=== PATIENT | female | born 1930 | race Caucasian/White ===

== ENCOUNTER 2017-02-23 10:05 | Emergency (ER) | payer BC ==
[~2017-02-23] VITALS: Ht 152.4 cm; Wt 68.0 kg
[2017-02-23 10:05] VITALS: BP_SYST 144
[~2017-02-23 10:05] MED LIST: ESZO2TAB22 PO; LEVO88TA2 PO; LORA-259 PO; METO50TA7 PO; MIRT30TA7 PO; TRAZ-123 PO; VALS1TAB37 PO; VALS80TA2 PO
--- NOTE | 2017-02-23 10:05 | NUR ---
BROUGHT IN BY [facility], PLACED IN BED #1 AND TRIAGED. REPORT GIVEN TO MELANIA
--- NOTE | 2017-02-23 10:10 | NUR ---
ER at bedside examining patient.
--- NOTE | 2017-02-23 10:12 | NUR ---
Pt presents to ER c/o general weakness, dizziness since last night. Pt states that she had mechanical fall last night at home and hit her back and her chest. Pt states that she is experiencing 5/10 pain in chest and back which she described as tolerable level of pain. Pt denies loss of consciousness or lacerations or trauma sustained from fall. Pt reports history of HTN and thyroid disorder. Pt in no acute distress, AOX4, allergies noted.
[2017-02-23 10:39] LABS: BASOPHILS % (AUTO) 0.7 % (0.0-2.0); EOSINOPHILS # (AUTO) 0.2 K/uL (0.0-0.4); LYMPHOCYTES # (AUTO) 1.5 K/uL (1.0-5.5); MONOCYTES # (AUTO) 0.2 K/uL (0.0-1.0)
[2017-02-23] MEDS: MECLIZINE HCL 25 MG TABLET (ANITVERT) PO ONE (10:39)
--- NOTE | 2017-02-23 10:47 | NUR ---
# 20 gauge angiocath placed to LAC. Use of asceptic technique. Opsite placed over site. Blood return noted. Flushed with 10 cc of normal saline. No evidence of infiltration noted. Patient tolerated well.
[2017-02-23 10:48] LABS: EOSINOPHILS % (AUTO) 2.7 % (0.0-4.0); HEMATOCRIT 28.3 % (36-48); HEMOGLOBIN 9.5 g/dL (12.0-16.0); LYMPHOCYTES % (AUTO) 25.9 % (20.5-51.5); MEAN CORPUSCULAR HEMOGLOBIN 33 pg (27-31); MEAN CORPUSCULAR HGB CONC 34 % (32-36); MEAN CORPUSCULAR VOLUME 98 fL (79.0-98.0); MONOCYTES % (AUTO) 3.8 % (1.7-9.3); NEUTROPHILS # (AUTO) 3.9 K/uL (1.8-7.7); NEUTROPHILS % (AUTO) 66.9 % (40.0-70.0); PLATELET COUNT (AUTO) 190 K/uL (130-430); RED CELL DISTRIBUTION WIDTH 11.7 % (9.0-15.0); WHITE BLOOD COUNT (AUTO) 5.8 K/uL (4.8-10.8)
[2017-02-23 10:55] LABS: ANION GAP 7 (5-15); CALCIUM 9.2 mg/dL (8.4-11.0); CHLORIDE 103 mmol/L (98-107); CREATININE 1.48 mg/dL (0.55-1.30); GLUCOSE 112 mg/dL (70-99); POTASSIUM 3.4 mmol/L (3.5-5.1); SODIUM SERUM 138 mmol/L (136-145); UREA NITROGEN, BLOOD 22 mg/dL (8-21)
[2017-02-23 11:02] LABS: ALANINE AMINOTRANSFERASE 15 U/L (12-78); ALBUMIN 3.5 g/dL (3.4-4.8); ASPARTATE AMINOTRANSFERASE 14 U/L (10-37); TOTAL BILIRUBIN 0.3 mg/dL (0.0-1.0)
[2017-02-23] MEDS: METOCLOPRAMIDE HCL 10 MG/2 ML VIAL IVP ONE (11:04)
[2017-02-23 11:05] LABS: PROTHROMBIN TIME 10.4 SECS (9.5-12.5)
--- NOTE | 2017-02-23 11:45 | NUR ---
rcv report from LOIS Ram; pt resting comfortably in bed; nausea and dizziness resolved; reports 5/10 pain; tolerable and does not wish for interventions at this time; VSS BP 140/57 P71; O2 Sat 99%RA; will continue to monitor
--- NOTE | 2017-02-23 11:55 | NUR ---
pt off unit via gurney to Radiology; in stable condition
--- NOTE | 2017-02-23 12:20 | NUR ---
pt return to unit via gurney from Radiology; in stable condition; will continue to monitor
--- NOTE | 2017-02-23 12:25 | NUR ---
endorsed care to LOIS Ram; pt resting comfortably in bed with no complaints or other symptoms; in stable condition
--- NOTE | 2017-02-23 12:26 | NUR ---
Pt's daughter Anastasiia called and would like to updated on pt's plan of care. She can be reached at [phone] .
--- NOTE | 2017-02-23 13:25 | NUR ---
Contacted adoption social worker Chika to get a hold of pt's daughter Anastasiia. Pt's daughter expressed caregiver role strain and is exhausted about having to constantly check up on mother who lives alone while also caring for her own family. Pt also expressed willingness to speak with adoption social worker.
--- NOTE | 2017-02-23 14:25 | NUR ---
Social Service Note: [employer] OFFICER spoke with pt's daughter, Anastasiia ([phone]); pt lives home alone. Pt's dtr states that the pt needs help at home. Pt's dtr states that she tries to help her out but is overwhelmed with her home life. [employer] OFFICER offered to give pt home care agency information where pt could hire an supervisor fishing to assist with daily activities. [employer]OBATION [employer] PAROLE OFFICER met with pt at bedside; pt states that she lives home alone; pt states that she does not drive. Pt stats that her daughter helps her out with activities of daily living. [employer]OB[employer] OFFICER spoke with pt about private home caregivers. Pt states that she may be interested in hiring an supervisor fishing. PROBATION AND PAROLE OFFICER provided pt with listing of local home care agencies. [employer]OBATION [employer] OFFICER will remain available for support and will follow up as needed.
[2017-02-23] MEDS: ASPIRIN 81 MG TABLET(ECOTRIN) PO ONE (14:55)
--- NOTE | 2017-02-23 14:56 | NUR ---
Pt medicated and tolerated well; will continue to monitor.
--- NOTE | 2017-02-23 15:07 | NUR ---
Attempted to contact pt's daughter Anastasiia. Pt is ready for discharge but daughter is her only ride home. Message left on daughter's voicemail to call us back.
--- NOTE | 2017-02-23 15:59 | NUR ---
Attempted to contact pt's daughter once again. No answer.
--- NOTE | 2017-02-23 16:00 | NUR ---
Pt's daughter called back. She is on her way from work to [facility] to take pt home.
--- NOTE | 2017-02-23 16:30 | NUR ---
Patient given written and verbal discharge instructions and verbalizes understanding. ER MD discussed with patient the results and treatment provided. Patient in stable condition. ID arm band removed. IV catheter removed intact and dressing applied, no active bleeding. Rx of Meclizine & Aspirin given. Patient educated on pain management and to follow up with PMD. Pain Scale 0/10. Opportunity for questions provided and answered.
[2017-02-23 16:36] VITALS: BP_SYST 133
== END 2017-02-23 16:36 | disposition home or self-care (01) ==
LOC: SED 10:05
DX: R42 Dizziness and giddiness (principal); R53.1 Weakness; I10 Essential (primary) hypertension; Z88.5 Allergy status to narcotic agent; Z88.0 Allergy status to penicillin; Z79.899 Other long term (current) drug therapy
CPT/HCPCS: 36415; 70450; 71045; 72128; 80053; 82550; 83880; 84484; 85025; 85610; 85730; 93005; 96374; 99285; J2765; J8597

== ENCOUNTER 2018-04-29 08:57 | Emergency (ER) | payer BC ==
[~2018-04-29] VITALS: Ht 167.6 cm; Wt 59.9 kg
[~2018-04-29 08:57] MED LIST changes: -TRAZ-123 PO; +TRAZ-218 PO
[2018-04-29 09:00] VITALS: BP_SYST 172
--- NOTE | 2018-04-29 09:00 | NUR ---
Arrived via [facility] ambulance with general weakness for the last 2 days after non mechanical fall 2 days ago with occipital strike without KO. Placed in room 3. Placed on equipment monitor phototypesetting, blood pressure machine and pulse oximeter. To gown for exam. Side rails up. Report given to Gary ABREU.
--- NOTE | 2018-04-29 09:04 | NUR ---
Pt C/O generalized weakness x 2 days and pain to the back of her head. Pt sustained non mechanical fall striking the back of her head. Pt denies any KO, N/V/D, chest pain, SOB, or any other symptoms at this time. Will continue to monitor.
[2018-04-29] MEDS ORDERED: NACL 0.9% 1,000 ML IV ONE (09:05)
--- NOTE | 2018-04-29 09:10 | NUR ---
# 22 gauge angiocath placed to RT AC. Use of asceptic technique. Opsite placed over site. Blood return noted. Blood for lab drawn from site. Flushed with 10 cc of normal saline. No evidence of infiltration noted. Patient tolerated well.
--- NOTE | 2018-04-29 09:11 | NUR ---
Radiology at bedside for xray
--- NOTE | 2018-04-29 09:25 | NUR ---
Patient transported to radiology via gurney, accompanied by rad staff.
--- NOTE | 2018-04-29 09:33 | NUR ---
Pt returned from radiology in stable condition, will continue to monitor.
[2018-04-29 09:43] LABS: ANION GAP 9 (5-15); CALCIUM 8.8 mg/dL (8.4-11.0); CHLORIDE 106 mmol/L (98-107); GLUCOSE 94 mg/dL (70-99); POTASSIUM 3.9 mmol/L (3.5-5.1); SODIUM SERUM 141 mmol/L (136-145); UREA NITROGEN, BLOOD 23 mg/dL (8-21)
[2018-04-29 09:46] LABS: PROTHROMBIN TIME 9.8 SECS (9.5-12.5)
[2018-04-29 09:49] LABS: ALANINE AMINOTRANSFERASE 17 U/L (12-78); ALBUMIN 3.6 g/dL (3.4-4.8); ASPARTATE AMINOTRANSFERASE 10 U/L (10-37); LIPASE 314 U/L (73-393); TOTAL BILIRUBIN 0.2 mg/dL (0.0-1.0)
[2018-04-29 09:55] LABS: HEMATOCRIT 29.5 % (36-48); MEAN CORPUSCULAR VOLUME 97 fL (79.0-98.0); RED BLOOD CELL COUNT(AUTO) 3.04 MIL/uL (4.2-6.2); WHITE BLOOD COUNT (AUTO) 4.6 K/uL (4.8-10.8)
[2018-04-29 09:56] LABS: BASOPHILS # (AUTO) 0.1 K/uL (0.0-0.2); BASOPHILS % (AUTO) 1.1 % (0.0-2.0); EOSINOPHILS # (AUTO) 0.3 K/uL (0.0-0.4); EOSINOPHILS % (AUTO) 7.5 % (0.0-4.0); LYMPHOCYTES # (AUTO) 1.5 K/uL (1.0-5.5); LYMPHOCYTES % (AUTO) 33.1 % (20.5-51.5); MEAN CORPUSCULAR HEMOGLOBIN 33 pg (27-31); MEAN CORPUSCULAR HGB CONC 34 % (32-36); MONOCYTES # (AUTO) 0.2 K/uL (0.0-1.0); MONOCYTES % (AUTO) 4.2 % (1.7-9.3); NEUTROPHILS # (AUTO) 2.5 K/uL (1.8-7.7); NEUTROPHILS % (AUTO) 54.1 % (40.0-70.0); PLATELET COUNT (AUTO) 179 K/uL (130-430); RED CELL DISTRIBUTION WIDTH 13.3 % (9.0-15.0)
[2018-04-29 10:14] LABS: BILIRUBIN,URINE NEGATIVE (NEGATIVE); BLOOD, URINE NEGATIVE (NEGATIVE); CLARITY/URINE CLEAR (CLEAR); COLOR,URINE YELLOW (YELLOW); GLUCOSE,URINE NEGATIVE (NEGATIVE); KETONES,URINE NEGATIVE (NEGATIVE); LEUKOCYTE ESTERASE ,URINE NEGATIVE (NEGATIVE); NITRITE, URINE NEGATIVE (NEGATIVE); PH,URINE 5.5 (5.0-8.0); PROTEIN URINE TRACE (NEGATIVE); UROBILINOGEN,URINE 0.2 (0.2-1.0)
--- NOTE | 2018-04-29 11:40 | NUR ---
assumed care, patient resting in bed.
--- NOTE | 2018-04-29 12:05 | NUR ---
Patient given written and verbal discharge instructions and verbalizes understanding. ER MD discussed with patient the results and treatment provided. Patient in stable condition. ID arm band removed. IV catheter removed intact and dressing applied, no active bleeding. Rx of Naproxen given. Patient educated on pain management and to follow up with PMD. Pain Scale 0/10. Opportunity for questions provided and answered. Medication side effect fact sheet provided.
[2018-04-29 12:09] VITALS: BP_SYST 157
== END 2018-04-29 12:09 | disposition home or self-care (01) ==
LOC: SED 08:57
DX: S09.90XA Unspecified injury of head, initial encounter (principal); R53.1 Weakness; I10 Essential (primary) hypertension; Z88.0 Allergy status to penicillin; Z88.5 Allergy status to narcotic agent; Z88.6 Allergy status to analgesic agent; Z79.899 Other long term (current) drug therapy; W19.XXXA Unspecified fall, initial encounter; Y93.89 Activity, other specified; Y92.89 Other specified places as the place of occurrence of the external cause; Y99.8 Other external cause status
CPT/HCPCS: 36415; 70450; 71045; 80053; 81003; 82550; 83605; 83690; 84484; 85025; 85610; 85730; 87040; 99284; J7030; 93005

== ENCOUNTER 2018-04-30 14:12 | Emergency (ER) | payer BC ==
[~2018-04-30] VITALS: Ht 152.4 cm; Wt 54.4 kg
[2018-04-30 14:20] VITALS: BP_SYST 160
--- NOTE | 2018-04-30 14:20 | NUR ---
Arrived via BLS ambulance S/P mechanical fall wtih right FA skin tear. Patient to ER bed 6 to gown for evaluation. Side rails up. Report given to Jyotsna ABREU.
--- NOTE | 2018-04-30 14:35 | NUR ---
Patient presented to ER via BLS ambulance S/P mechanical fall wtih right FA skin tear. Patient A&Ox3, ambulatory, afebrile, skin pink, respirations equal bilat. Patient states she fell in the shed at her daughters home, she was cleaning, Patient states no KO, she needed help getting up off the floor. 3 cm skin tear to right forearm, pain to right hip and lower back from fall pain 08/15.
--- NOTE | 2018-04-30 15:30 | NUR ---
ER at bedside examining patient.
--- NOTE | 2018-04-30 16:30 | NUR ---
Patient awake and expressing concern for needing to go home. I verbalized to pt that she is in ER for a fall, re-oriented to place and time. Patient cooperative and responded appropriately.
--- NOTE | 2018-04-30 18:00 | NUR ---
Kimani ABREUcharge entry clerk nurse called family of Pt, requested pt to be picked up do to discharge. I notified patient that family is on the way, patient responded appriately.
--- NOTE | 2018-04-30 18:15 | NUR ---
Site to Right forearm cleansed with sterile water. Site measures approximately 3 cm . nonaderent dressing applied, wrapped with kerlex. Tetanus vaccination current.
[2018-04-30] MEDS ORDERED: DIPH-TET-PERTUS Vaccine 0.5 ML VIAL (ADACEL) I.M. ONE (18:45)
--- NOTE | 2018-04-30 19:00 | NUR ---
After discussion with family patient wishes to be discharged home.
--- NOTE | 2018-04-30 19:22 | NUR ---
Patient given written and verbal discharge instructions and verbalizes understanding. ER MD discussed with patient the results and treatment provided. Patient in stable condition. ID arm band removed. Patient educated on pain management and to follow up with PMD. Pain Scale 0/10. Opportunity for questions provided and answered. Medication side effect fact sheet provided.
[2018-04-30 19:23] VITALS: BP_SYST 162
== END 2018-04-30 19:23 | disposition home or self-care (01) ==
LOC: SED 14:12
DX: S70.01XA Contusion of right hip, initial encounter (principal); S50.811A Abrasion of right forearm, initial encounter; I10 Essential (primary) hypertension; Z90.49 Acquired absence of other specified parts of digestive tract; Z90.710 Acquired absence of both cervix and uterus; Z88.0 Allergy status to penicillin; Z88.5 Allergy status to narcotic agent; Z88.6 Allergy status to analgesic agent; Z79.899 Other long term (current) drug therapy; W19.XXXA Unspecified fall, initial encounter; Y93.01 Activity, walking, marching and hiking; Y92.89 Other specified places as the place of occurrence of the external cause; Y99.8 Other external cause status
CPT/HCPCS: 72170-TC; 99283

== ENCOUNTER 2018-12-07 07:51 | Inpatient (IN) | payer BC ==
[2018-12-07] VITALS (17 sets, daily range): BP systolic 115–201
[~2018-12-07] VITALS: Ht 154.9 cm; Wt 59.0 kg
[~2018-12-07 07:51] MED LIST changes: -TRAZ-218 PO; +TRAZ-250 PO
--- NOTE | 2018-12-07 07:51 | NUR ---
Patient to ER bed 2 to gown for evaluation. Side rails up. Report given to Alicia ABREU.
--- NOTE | 2018-12-07 08:00 | NUR ---
ER at bedside examining patient.
--- NOTE | 2018-12-07 08:11 | NUR ---
Pt bib CF 64 c/o resp distress. Pt 94% on arrival. VSS. Pt h/o hypothyroid and psych. Pt is poor historian. RT at bedside.
[2018-12-07] MEDS ORDERED: NS 250 ML IV ONE (08:15)
--- NOTE | 2018-12-07 08:35 | NUR ---
# 20 gauge angiocath placed to LAC. Use of asceptic technique. Opsite placed over site. Blood return noted. Blood for lab drawn from site. Flushed with 10 cc of normal saline. No evidence of infiltration noted. Patient tolerated well.
[2018-12-07] MEDS ORDERED: SUCCINYLCHOLINE CHLORIDE 20 MG/ML(QUELICIN) IVP ONE (08:44)
[2018-12-07] MEDS ORDERED: ETOMIDATE 20 MG/ 10 ML VIAL (AMIDATE) IVP ONE (08:44)
--- NOTE | 2018-12-07 08:45 | NUR ---
NS bolus currently infusing. Lung sounds are clear
--- NOTE | 2018-12-07 08:48 | NUR ---
x-ray at the bedside.
[2018-12-07 08:53] LABS: ANION GAP 7 (5-15); CALCIUM 8.5 mg/dL (8.4-11.0); CHLORIDE 103 mmol/L (98-107); CREATININE 1.43 mg/dL (0.55-1.30); GLUCOSE 130 mg/dL (70-99); POTASSIUM 3.7 mmol/L (3.5-5.1); SODIUM SERUM 134 mmol/L (136-145); UREA NITROGEN, BLOOD 16 mg/dL (8-21)
[2018-12-07 08:58] LABS: INR 1.3 (0.8-1.2); PROTHROMBIN TIME 12.5 SECS (9.5-12.5)
[2018-12-07 09:00] LABS: ALANINE AMINOTRANSFERASE 12 U/L (12-78); ALBUMIN 2.9 g/dL (3.4-4.8); ASPARTATE AMINOTRANSFERASE 9 U/L (10-37); TOTAL BILIRUBIN 0.4 mg/dL (0.0-1.0)
[2018-12-07] MEDS ORDERED: LEVOFLOXACIN 500 MG/D5W 100 ML IV ONE (09:00)
[2018-12-07] MEDS ORDERED: CLOPIDOGREL BISULFATE 75 MG TABLET PO ONE (09:15)
[2018-12-07 09:40] LABS: MEAN CORPUSCULAR HEMOGLOBIN 37 pg (27-31); MEAN CORPUSCULAR HGB CONC 34 % (32-36); MEAN CORPUSCULAR VOLUME 108 fL (79.0-98.0); RED CELL DISTRIBUTION WIDTH 16.9 % (9.0-15.0)
[2018-12-07 09:45] LABS: HEMOGLOBIN 4.2 g/dL (12.0-16.0); RED BLOOD CELL COUNT(AUTO) 1.12 MIL/uL (4.2-6.2); WHITE BLOOD COUNT (AUTO) 1.7 K/uL (4.8-10.8)
[2018-12-07] MEDS ORDERED: NACL 0.9% 1,000 ML IV ONE (09:45)
[2018-12-07 09:46] LABS: HEMATOCRIT 12.3 % (36-48); PLATELET COUNT (AUTO) 44 K/uL (130-430)
--- NOTE | 2018-12-07 09:48 | NUR ---
pt become agitated and is trying to pull IV and monitor off. O2 increased to 3L. RT at the bedside giving a breathing tx.
[2018-12-07] MEDS ORDERED: IPRATROPIUM/ALBUTEROL SULFATE 3 ML AMPUL.NEB (DUONEB) ONE (09:59)
[2018-12-07 10:23] LABS: BAND % (MANUAL) 2 % (0-6); BASOPHILS % (MANUAL) 0 % (0-2); EOSINOPHILS % (MANUAL) 0 % (0-7); LYMPHOCYTES % (MANUAL) 40 % (20-46); MONOCYTES % (MANUAL) 10 % (0-11)
--- NOTE | 2018-12-07 10:32 | NUR ---
Infusing NS 1L. Lung sounds are clear.
[2018-12-07] MEDS ORDERED: KCL 20 mEq in D5/0.45NS 1000mL 1,000 ML IV ONE (10:45)
--- NOTE | 2018-12-07 10:49 | NUR ---
Levaquin IVPB currently infusing per MD order.
--- NOTE | 2018-12-07 11:25 | NUR ---
Pt will be admitted to the ICU under the care of Dr. Verma. Admit orders have been received.
--- NOTE | 2018-12-07 11:45 | NUR ---
Pt pulled out both IV sites. 20g IV placced to the left AC.
--- NOTE | 2018-12-07 11:45 | NUR ---
ADMISSION NOTE Received patient from ER via gurney. Patient admitted with diagnosis of pancytopenia and pneumonia. Patient is awake, alert, oriented 3. Patient oriented to hospital room, call light, toileting, pain management and safety-teach back done. Personal belongings checked and Belongings List documented. Call light within reach.
--- NOTE | 2018-12-07 11:55 | NUR ---
Transfer to ICU bed 2 via ACLS protocol. Licensed nurse present. IV present no signs or symptoms of infiltration. Report given to Alec ABREU. Pt left in stable condition
[2018-12-07 12:29] LABS: BLASTS, MANUAL % 18 % (0-0)
--- NOTE | 2018-12-07 12:30 | NUR ---
IV PLACEMENT: # 20 gauge angiocath placed to right AC. Use of asceptic technique. Opsite placed over site. Blood return noted. Flushed with 10 cc of normal saline. No evidence of infiltration noted. Patient tolerated without complication or complaint.
[2018-12-07 12:31] LABS: OTHER CELLS,MANUAL % 23 (0-0)
[2018-12-07] MEDS: hydrALAZINE HCL 20 MG/ML VIAL IVP PRN (13:05)
--- NOTE | 2018-12-07 13:40 | NUR ---
New consult paged to Dr. Case, Dr. Toure covering. Spoke with exchange.
[2018-12-07] MEDS ORDERED: LABETALOL 100 MG/ 20ML VIAL IVP PRN (14:00)
[2018-12-07] MEDS ORDERED: LABETALOL 100 MG/ 20ML VIAL IVP ONE (14:00)
[2018-12-07] MEDS ORDERED: METOPROLOL SUCCINATE 50 MG TAB.SR.24H (TOPROL XL) PO ONE (14:15)
[2018-12-07] MEDS ORDERED: LOSARTAN POTASSIUM 50 MG TABLET (COZAAR) PO ONE (14:15)
--- NOTE | 2018-12-07 14:15 | NUR ---
THRASHER CATH: # 16 FR Thrasher catheter with 10 cc bulb inserted with use of sterile technique. Bulb inflated with 10 cc sterile water. Immediate return of 200 cc yellow urine noted. Bedside drainage bag placed below level of bladder. Pt tolerated procedure well.
--- NOTE | 2018-12-07 14:18 | NUR ---
New consult paged to Dr. Meyers, spoke with exchange.
[2018-12-07] MEDS ORDERED: ALLOPURINOL 300 MG TABLET (ZYLOPRIM) PO ONE (15:15)
[2018-12-07] MEDS: MEROPENEM 500 MG in NS 50 ML IV SCH ×2 (15:42→21:29)
[2018-12-07] MEDS: VANCOMYCIN HCL 750 MG in NS 250 ML IV SCH (17:30)
--- NOTE | 2018-12-07 17:48 | NUR ---
New consult paged to Dr. Billings, spoke with exchange.
[2018-12-07 19:28] LABS: PLATELET COUNT (AUTO) 67 K/uL (130-430)
[2018-12-07 19:35] LABS: HEMATOCRIT 26.2 % (36-48); HEMOGLOBIN 8.7 g/dL (12.0-16.0); MEAN CORPUSCULAR HEMOGLOBIN 34 pg (27-31); MEAN CORPUSCULAR HGB CONC 33 % (32-36); RED BLOOD CELL COUNT(AUTO) 2.58 MIL/uL (4.2-6.2); RED CELL DISTRIBUTION WIDTH 19.8 % (9.0-15.0); WHITE BLOOD COUNT (AUTO) 4.4 K/uL (4.8-10.8)
[2018-12-07 19:37] LABS: MEAN CORPUSCULAR VOLUME 101 fL (79.0-98.0)
[2018-12-07 19:40] LABS: URIC ACID 5.4 mg/dL (2.4-7.0)
--- NOTE | 2018-12-07 19:47 | NUR ---
Closing Note Provided plan of care via sbar to receiving nurse Chantale ABREU.
[2018-12-07 19:49] LABS: BAND % (MANUAL) 0 % (0-6); BASOPHILS % (MANUAL) 0 % (0-2); EOSINOPHILS % (MANUAL) 1 % (0-7); LYMPHOCYTES % (MANUAL) 14 % (20-46); MONOCYTES % (MANUAL) 10 % (0-11)
[2018-12-07 19:50] LABS: OTHER CELLS,MANUAL % 71 (0-0)
--- NOTE | 2018-12-07 19:58 | NUR ---
DR SILAS Verma notified regarding intubation. Orders received. Consult with Pulmo Dr Farris.
--- NOTE | 2018-12-07 20:00 | NUR ---
AT 1925 P.M, RECEIVED NURSING REPORT FROM DAY SHIFT MARLA Torres, AT 1930 P.M, AT BEDSIDE FIND PATIENT WAS NO RESPONSIVE, O2 SAT. 40% WITH NASAL CANNULA 4 LPM, GIVE ON ACLS GUIDELINE, 100% O2 AMBU BAGGING AND CALL R.T AND E.R FOR HELP, AT 1939 P.M, INTUBATION BY ( DURING THE PROCEDURE ORDERED GIVE SUCCINYLCHOLINE 100 MG, ETOMIDATE 20 MG IVP ) ORAL ET-TUBE SIZE 7, LIP LINE 22 CM,VENTILATOR SETTING : AC 16, TV 400,FIO2 100%, PEEP 0, , ORDERED FOLLOW UP STAT ABG AND CHEST X-RAY, ALSO INSERT NG-TUBE AND KEEP NPO, FIND PATIENT NG-TUBE COMING OUT FRESH BLOOD 200 ML,. REPORTED TO , ORDERED CONSULT Dr. RICHARDSON
--- NOTE | 2018-12-07 20:25 | NUR ---
MD SALINAS Called Dr. Jauregui's exchange [phone] Spoke to Dali
--- NOTE | 2018-12-07 20:35 | NUR ---
AT 5 P.M, REPORT TO ,REGARDING OF STAT CBC RESULT AND UPDATED PATIENT,S CONDITION, ORDERED CHECK CBC EVERY 12 HOURS, AND STAT CBC NOW, THE CBC RESULT FOLLOW UP STANDING ORDERED : IF H.b < 8.0 : GIVE BLOOD TRANSFUSION P-RBC 2 UNITS, IF PLATELET < 50 : GIVE BLOOD TRANSFUSION PLATELET ONE UNIT
--- NOTE | 2018-12-07 20:42 | NUR ---
MD SALINAS Called Dr. Farris's exchange [phone] Spoke to Hayley
--- NOTE | 2018-12-07 20:50 | NUR ---
AT 2041 P.M CALLED BACK FOR NEW CONSULT, REPORTED TO DOCTOR THE CHEST X-RAY AND ABG RESULT, , ORDERED NPO, KEEP NG-TUBE LOWE PRESSURE SUCTION, START, BREATH TREATMENT, AND PROTONIX THERAPY, TITRATE FIO2 , KEEP SAT.> 92 %, ATIVAN 1 MG IVP EVERY HOUR NEED, AND FOLLOW ABG AND CHEST X-RAY IN A.M Addendum: 12/07/18 at 2303 by Daquan Alfonso RN AT 2041 P.M CALLED BACK FOR NEW CONSULT, REPORTED TO DOCTOR THE CHEST X-RAY AND ABG RESULT, , ORDERED NPO, KEEP NG-TUBE LOWER PRESSURE SUCTION, START, BREATH TREATMENT, AND PROTONIX THERAPY, TITRATE FIO2 , KEEP SAT.> 92 %, ATIVAN 1 MG IVP EVERY HOUR NEED, AND FOLLOW ABG AND CHEST X-RAY IN A.M
[2018-12-07] MEDS: LORazepam 1 MG TABLET PO SCH (21:00)
[2018-12-07] MEDS ORDERED: IPRATROPIUM BROM 0.5 MG/2.5 ML VIAL.NEB (ATROVENT) INH PRN (21:15)
[2018-12-07] MEDS ORDERED: ALBUTEROL SULFATE 0.083% 2.5 MG/3 ML VIAL.NEB INH PRN (21:15)
[2018-12-07] MEDS: LORazepam 2 MG/ML VIAL IVP PRN (21:29)
[2018-12-07] MEDS ORDERED: PANTOPRAZOLE SODIUM 40 MG/VIAL (PROTONIX) IVP ONE (21:30)
[2018-12-07 21:37] LABS: BASOPHILS # (AUTO) 0.1 K/uL (0.0-0.2); BASOPHILS % (AUTO) 4.3 % (0.0-2.0); EOSINOPHILS % (AUTO) 0.1 % (0.0-4.0); HEMOGLOBIN 8.9 g/dL (12.0-16.0); LYMPHOCYTES # (AUTO) 2.8 K/uL (1.0-5.5); LYMPHOCYTES % (AUTO) 91.3 % (20.5-51.5); MEAN CORPUSCULAR HEMOGLOBIN 33 pg (27-31); MEAN CORPUSCULAR HGB CONC 33 % (32-36); MEAN CORPUSCULAR VOLUME 101 fL (79.0-98.0); MONOCYTES % (AUTO) 1.2 % (1.7-9.3); NEUTROPHILS # (AUTO) 0.1 K/uL (1.8-7.7); NEUTROPHILS % (AUTO) 3.1 % (40.0-70.0); PLATELET COUNT (AUTO) 58 K/uL (130-430); RED BLOOD CELL COUNT(AUTO) 2.68 MIL/uL (4.2-6.2); RED CELL DISTRIBUTION WIDTH 20.1 % (9.0-15.0)
[2018-12-07 21:38] LABS: WHITE BLOOD COUNT (AUTO) 3.3 K/uL (4.8-10.8)
[2018-12-07] MEDS: ALBUTEROL SULFATE 0.083% 2.5 MG/3 ML VIAL.NEB INH SCH (21:51)
[2018-12-07] MEDS: IPRATROPIUM BROM 0.5 MG/2.5 ML VIAL.NEB (ATROVENT) INH SCH (21:51)
[2018-12-07] MEDS ORDERED: HYDROmorphone 1 MG INJ. 1 MG/ML AMPUL IVP PRN (22:00)
[2018-12-07] MEDS ORDERED: NACL 0.9% 1,000 ML IV SCH (22:15)
--- NOTE | 2018-12-07 22:20 | NUR ---
O2 SAT. 100 %, ORDERED TITRATED FIO2 TO 90 % BY MAU Booth
[2018-12-07] MEDS ORDERED: FUROSEMIDE 40 MG/4 ML VIAL IVP SCH (22:30)
--- NOTE | 2018-12-07 23:43 | NUR ---
MD SALINAS Called Dr. Farris's exchange [phone] Spoke to Jennifer
--- NOTE | 2018-12-07 23:45 | NUR ---
AT 2345 P.M, REPORTED TO REGARDING OF NEW ABG RESULT, ORDERED UPDATED VENTILATOR SETTING : AC 24, TV 400, FIO2 70%, PEEP 0, AND DISCONTINUE NEW IVF ORDER
[2018-12-08] VITALS (35 sets, daily range): BP systolic 103–171
[2018-12-08] MEDS: ALBUTEROL SULFATE 0.083% 2.5 MG/3 ML VIAL.NEB INH SCH ×4 (01:31→19:26)
[2018-12-08] MEDS: IPRATROPIUM BROM 0.5 MG/2.5 ML VIAL.NEB (ATROVENT) INH SCH ×4 (01:32→19:27)
[2018-12-08] MEDS: LORazepam 2 MG/ML VIAL IVP PRN ×4 (02:04→21:42)
--- NOTE | 2018-12-08 02:07 | NUR ---
AT 0130 A.M, TITRATED FIO2 TO 60 % BY MAU Booth, O2 SAT. 100%
[2018-12-08 02:49] LABS: BILIRUBIN,URINE NEGATIVE (NEGATIVE); CLARITY/URINE CLEAR (CLEAR); COLOR,URINE YELLOW (YELLOW); GLUCOSE,URINE NEGATIVE (NEGATIVE); KETONES,URINE NEGATIVE (NEGATIVE); PROTEIN URINE 1+ (NEGATIVE)
[2018-12-08 02:50] LABS: BLOOD, URINE 2+ (NEGATIVE); LEUKOCYTE ESTERASE ,URINE NEGATIVE (NEGATIVE); NITRITE, URINE NEGATIVE (NEGATIVE); UROBILINOGEN,URINE 0.2 (0.2-1.0)
[2018-12-08 03:07] LABS: BACTERIA,URINE FEW /HPF (None Seen)
[2018-12-08] MEDS: MEROPENEM 500 MG in NS 50 ML IV SCH ×3 (05:30→21:37)
[2018-12-08] MEDS: LEVOTHYROXINE SODIUM 0.088 MG TABLET PO SCH (05:38)
[2018-12-08 05:40] LABS: BASOPHILS % (AUTO) 0.3 % (0.0-2.0); EOSINOPHILS % (AUTO) 1.6 % (0.0-4.0); HEMOGLOBIN 7.8 g/dL (12.0-16.0); LYMPHOCYTES # (AUTO) 0.5 K/uL (1.0-5.5); LYMPHOCYTES % (AUTO) 18.2 % (20.5-51.5); MEAN CORPUSCULAR HEMOGLOBIN 33 pg (27-31); MEAN CORPUSCULAR HGB CONC 34 % (32-36); MEAN CORPUSCULAR VOLUME 97 fL (79.0-98.0); MONOCYTES # (AUTO) 2.3 K/uL (0.0-1.0); MONOCYTES % (AUTO) 76.5 % (1.7-9.3); NEUTROPHILS % (AUTO) 3.4 % (40.0-70.0); RED BLOOD CELL COUNT(AUTO) 2.36 MIL/uL (4.2-6.2); RED CELL DISTRIBUTION WIDTH 19.6 % (9.0-15.0)
[2018-12-08 05:43] LABS: NEUTROPHILS # (AUTO) 0.1 K/uL (1.8-7.7)
[2018-12-08 05:45] LABS: PLATELET COUNT (AUTO) 38 K/uL (130-430)
--- NOTE | 2018-12-08 06:14 | NUR ---
AT 0545 A.M TITRATED DOWN FIO2 TO 50% (O2 SAT. 100% ),BY MAU Booth, RECEIVED A.M LAB RESULT: PLATELET 38, H.b 7.8, Dr. WELLS' STANDING ORDER, PREPARE BLOOD TRANSFUSION PLATELET ONE UNIT, AND P-RBC 2 UNITS
[2018-12-08 06:18] LABS: ANION GAP 10 (5-15); CALCIUM 8.1 mg/dL (8.4-11.0); CHLORIDE 106 mmol/L (98-107); CREATININE 1.84 mg/dL (0.55-1.30); GLUCOSE 118 mg/dL (70-99); POTASSIUM 3.8 mmol/L (3.5-5.1); SODIUM SERUM 138 mmol/L (136-145); UREA NITROGEN, BLOOD 26 mg/dL (8-21)
[2018-12-08 06:19] LABS: ALANINE AMINOTRANSFERASE 14 U/L (12-78); ALBUMIN 2.5 g/dL (3.4-4.8); ASPARTATE AMINOTRANSFERASE 18 U/L (10-37); FREE T4 (FREE THYROXINE) 1.9 ng/dl (0.8-1.5); PHOSPHORUS 3.4 mg/dL (2.7-4.5); THYROID STIMULATING HORMONE < 0.01 uIu/mL (0.36-3.74); TOTAL BILIRUBIN 0.5 mg/dL (0.0-1.0)
--- NOTE | 2018-12-08 06:42 | NUR ---
PAGED REGARDING OF ABNORMAL LAB RESULT: BNP 2800, TROPONIN 1.624, WAITING FOR DOCTOR CALL BACK
--- NOTE | 2018-12-08 06:45 | NUR ---
Dr. AHUMADA CALLED, WAS AWARE PATIENT,S LAB RESULT AND CONDITION, VERBALIZED: OK ,NO ORDER
--- NOTE | 2018-12-08 06:46 | NUR ---
Nutrition Update Frankie Scale 14 noted. Pt admitted for Pancytopenia, Pneumonia Diet: Mechanical soft BMI: 30.2 kg/m2 RD to follow per nutrition care standards.
--- NOTE | 2018-12-08 07:20 | NUR ---
Opening Note Received plan of care via sbar from endorsing nurse Chantale ABREU.
--- NOTE | 2018-12-08 07:24 | NUR ---
GIVE COMPLETE NURSING REPORT TO DAY SHIFT MARLA Torres
[2018-12-08] MEDS ORDERED: VALSARTAN 80 MG TABLET (DIOVAN) PO SCH (09:00)
--- NOTE | 2018-12-08 09:30 | NUR ---
Dr. French at bedside. Received orders for Acetaminophen 650 mg, q6, po, prn for fever
[2018-12-08] MEDS ORDERED: FUROSEMIDE 20 MG/2 ML VIAL IVP ONE (10:00)
[2018-12-08] MEDS: METOPROLOL SUCCINATE 50 MG TAB.SR.24H (TOPROL XL) PO SCH (10:06)
[2018-12-08] MEDS: PANTOPRAZOLE SODIUM 40 MG/VIAL (PROTONIX) IVP SCH (10:06)
[2018-12-08] MEDS: LOSARTAN POTASSIUM 50 MG TABLET (COZAAR) PO SCH (10:07)
[2018-12-08] MEDS: ALLOPURINOL 300 MG TABLET (ZYLOPRIM) PO SCH (10:07)
[2018-12-08] MEDS: ACETAMINOPHEN 325 MG TABLET PO PRN (10:15)
--- NOTE | 2018-12-08 14:14 | NUR ---
Dr. Meyers at bedside. Received orders to start tubefeeding Jevity 30cc. No goal.
[2018-12-08] MEDS: hydrALAZINE HCL 20 MG/ML VIAL IVP PRN (15:42)
--- NOTE | 2018-12-08 17:30 | NUR ---
Dr. Toure at bedside. Received orders for artificial tears. Also was told not to give any fluids except what is necessary to give medications.
[2018-12-08] MEDS ORDERED: PEG 400/HYPROMELLOSE/GLYCERIN 15 ML DROPS OP PRN ×2 (18:15)
--- NOTE | 2018-12-08 19:10 | NUR ---
PM SHIFT ASSESSMENT Pt is unable to make needs known. Pt is on vent, RR even and unlabored. ST noted on monitor. Skin warm and dry. Midline to TONY, no signs of infiltration noted. Oakley catheter in place and draining to gravity. Family at bedside. Safety precautions in place, call light within reach. Will continue to monitor.
--- NOTE | 2018-12-08 19:22 | NUR ---
Closing Note Provided plan of care via sbar to receiving nurse Sayda ABREU.
[2018-12-08] MEDS ORDERED: FUROSEMIDE 40 MG/4 ML VIAL ONE (20:00)
[2018-12-08] MEDS ORDERED: FUROSEMIDE 20 MG/2 ML VIAL ONE (20:00)
[2018-12-08] MEDS: FUROSEMIDE 100 MG in D5W 90 ML IV SCH (20:03)
[2018-12-08 20:10] LABS: HEMOGLOBIN 10.8 g/dL (12.0-16.0); MEAN CORPUSCULAR HEMOGLOBIN 33 pg (27-31); MEAN CORPUSCULAR HGB CONC 35 % (32-36); PLATELET COUNT (AUTO) 75 K/uL (130-430); RED BLOOD CELL COUNT(AUTO) 3.28 MIL/uL (4.2-6.2); RED CELL DISTRIBUTION WIDTH 17.3 % (9.0-15.0); WHITE BLOOD COUNT (AUTO) 4.4 K/uL (4.8-10.8)
[2018-12-08 20:14] LABS: MEAN CORPUSCULAR VOLUME 94 fL (79.0-98.0)
--- NOTE | 2018-12-08 20:25 | NUR ---
Dr. Verma at bedside to see patient.
[2018-12-08 20:39] LABS: BAND % (MANUAL) 0 % (0-6); BASOPHILS % (MANUAL) 0 % (0-2); EOSINOPHILS % (MANUAL) 0 % (0-7); LYMPHOCYTES % (MANUAL) 22 % (20-46); MONOCYTES % (MANUAL) 0 % (0-11)
[2018-12-08 20:40] LABS: OTHER CELLS,MANUAL % 74 (0-0)
[2018-12-08] MEDS: LORazepam 1 MG TABLET PO SCH (21:37)
[2018-12-09] VITALS (31 sets, daily range): BP systolic 104–151
[2018-12-09] MEDS: LORazepam 2 MG/ML VIAL IVP PRN ×3 (01:11→22:45)
[2018-12-09] MEDS: ALBUTEROL SULFATE 0.083% 2.5 MG/3 ML VIAL.NEB INH SCH ×4 (01:12→19:56)
[2018-12-09] MEDS: IPRATROPIUM BROM 0.5 MG/2.5 ML VIAL.NEB (ATROVENT) INH SCH ×4 (01:12→19:56)
[2018-12-09] MEDS: MEROPENEM 500 MG in NS 50 ML IV SCH ×3 (05:22→21:04)
[2018-12-09 05:45] LABS: BASOPHILS % (AUTO) 0.2 % (0.0-2.0); EOSINOPHILS # (AUTO) 0.2 K/uL (0.0-0.4); EOSINOPHILS % (AUTO) 3.1 % (0.0-4.0); HEMATOCRIT 30.8 % (36-48); HEMOGLOBIN 10.8 g/dL (12.0-16.0); LYMPHOCYTES # (AUTO) 0.7 K/uL (1.0-5.5); LYMPHOCYTES % (AUTO) 14.7 % (20.5-51.5); MEAN CORPUSCULAR HEMOGLOBIN 33 pg (27-31); MEAN CORPUSCULAR HGB CONC 35 % (32-36); MEAN CORPUSCULAR VOLUME 93 fL (79.0-98.0); MONOCYTES % (AUTO) 79.1 % (1.7-9.3); NEUTROPHILS % (AUTO) 2.9 % (40.0-70.0); PLATELET COUNT (AUTO) 76 K/uL (130-430); RED CELL DISTRIBUTION WIDTH 17.4 % (9.0-15.0); WHITE BLOOD COUNT (AUTO) 5.1 K/uL (4.8-10.8)
[2018-12-09 05:50] LABS: NEUTROPHILS # (AUTO) 0.1 K/uL (1.8-7.7)
[2018-12-09 06:06] LABS: ALANINE AMINOTRANSFERASE 16 U/L (12-78); ALBUMIN 2.4 g/dL (3.4-4.8); ANION GAP 8 (5-15); ASPARTATE AMINOTRANSFERASE 16 U/L (10-37); CALCIUM 7.9 mg/dL (8.4-11.0); CHLORIDE 106 mmol/L (98-107); GLUCOSE 132 mg/dL (70-99); POTASSIUM 3.1 mmol/L (3.5-5.1); SODIUM SERUM 139 mmol/L (136-145); TOTAL BILIRUBIN 0.7 mg/dL (0.0-1.0); UREA NITROGEN, BLOOD 33 mg/dL (8-21)
[2018-12-09] MEDS: LEVOTHYROXINE SODIUM 0.088 MG TABLET PO SCH (06:11)
[2018-12-09] MEDS: ACETAMINOPHEN 325 MG TABLET PO PRN (06:11)
--- NOTE | 2018-12-09 08:00 | NUR ---
RN OPENING NOTE PATIENT IS RESTING IN BED, OPEN EYES, INTUBATED. NON VERBAL. FLACC SCALE SHOWS THE PATIENT IS RESTING IN NO PAIN, PATIENT WAS ASSESSED, VITAL SIGNS ARE STABLE. PATIENT BED AT LOW POSITION. RT CAME BY GAVE A BREATHING TREATMENT AND SUCTIONED THE PATIENT. ORAL FEEDING TUBE IS GOING PRESCRIBED, BED AT LOW POSITION AND CALL LIGHT WITHIN REACH, WILL CONTINUE TO MONITOR.
[2018-12-09] MEDS: LOSARTAN POTASSIUM 50 MG TABLET (COZAAR) PO SCH (08:18)
[2018-12-09] MEDS: PANTOPRAZOLE SODIUM 40 MG/VIAL (PROTONIX) IVP SCH (08:18)
[2018-12-09] MEDS: METOPROLOL SUCCINATE 50 MG TAB.SR.24H (TOPROL XL) PO SCH ×2 (08:19→18:38)
[2018-12-09] MEDS: ALLOPURINOL 300 MG TABLET (ZYLOPRIM) PO SCH (08:19)
--- NOTE | 2018-12-09 10:00 | NUR ---
RN NOTE PATIENT WAS REPOSITIONED, FAMILY MEMBERS BY BED SIDE, PATIENT WAS GIVEN HER MEDICATION, WILL CONTINUE TO MONITOR.
--- NOTE | 2018-12-09 12:00 | NUR ---
RN NOTE PATIENT WAS REPOSITIONED. PATIENT FLACC SHOWS SHE HAS NO PAIN, PATIENT TRIES TO PULL ON HER TUBE WHEN RELEASING HER RESTRAINTS. PATIENT' S VENT SETTING WERE CHANGED BY THE RT. WILL CONTINUE TO MONITOR.
--- NOTE | 2018-12-09 14:00 | NUR ---
RN NOTE PATIENT WAS GIVEN HER IVPB OF ANTIBIOTICS. PATIENT WAS REPOSITIONED. FAMILY MEMBERS BY BEDSIDE, WILL CONTINUE TO MONITOR.
[2018-12-09] MEDS: VANCOMYCIN HCL 750 MG in NS 250 ML IV SCH (15:17)
[2018-12-09] MEDS: FUROSEMIDE 100 MG in D5W 90 ML IV SCH (15:23)
--- NOTE | 2018-12-09 16:00 | NUR ---
RN NOTE PATIENT IS RESTING IN BED, FAMILY MEMBERS BY BEDSIDE, HEART RATE FOR THE PATIENT IS GOING UP TO THE 130 AND 140'S BRANDYN LIRA WAS PAGED. HE SAID HE WILL BE COMING OVER TO SEE THE PATIENT. WILL CONTINUE TO MONITOR THE PATIENT.
[2018-12-09] MEDS ORDERED: POTASSIUM CHLORIDE 20 MEQ/PKT PACKET NG ONE (16:45)
[2018-12-09] MEDS ORDERED: POTASSIUM CHLORIDE 20 MEQ/PKT PACKET ONE (17:01)
[2018-12-09] MEDS ORDERED: FUROSEMIDE 100 MG in D5W 90 ML IV SCH (18:00)
[2018-12-09 18:18] LABS: HEMATOCRIT 31.5 % (36-48); HEMOGLOBIN 11.1 g/dL (12.0-16.0); MEAN CORPUSCULAR HEMOGLOBIN 33 pg (27-31); MEAN CORPUSCULAR HGB CONC 35 % (32-36); MEAN CORPUSCULAR VOLUME 93 fL (79.0-98.0); RED BLOOD CELL COUNT(AUTO) 3.39 MIL/uL (4.2-6.2); WHITE BLOOD COUNT (AUTO) 5.1 K/uL (4.8-10.8)
--- NOTE | 2018-12-09 18:36 | NUR ---
RN CLOSING NOTE PATIENT'S RATE OF LASIX WAS INCREASED TO 5 MG/HR PER DR. AHUMADA'S ORDER. WELL PATIENT'S HEART RATE WAS RISING ABOVE 150/MIN. DR. AHUMADA WAS CALLED AND ASKED IF WE CAN GIVE THE DOSE OF 2100 TODAY NOW INSTEAD OF AT 9PM, DR. AHUMADA APPROVED IT . WILL CONTINUE TO MONITOR AND WILL ENDORSE TO NEXT SHIFT.
[2018-12-09 18:45] LABS: PLATELET COUNT (AUTO) 70 K/uL (130-430)
[2018-12-09 18:47] LABS: BAND % (MANUAL) 0 % (0-6); BASOPHILS % (MANUAL) 0 % (0-2); EOSINOPHILS % (MANUAL) 1 % (0-7); LYMPHOCYTES % (MANUAL) 15 % (20-46); MONOCYTES % (MANUAL) 0 % (0-11)
[2018-12-09 18:48] LABS: OTHER CELLS,MANUAL % 78 (0-0)
[2018-12-09] MEDS ORDERED: LATA7.5D OP (19:40)
[2018-12-09] MEDS ORDERED: DORZ10DR10 EACH EYE (19:40)
[2018-12-09] MEDS ORDERED: CARB28DR OP (19:40)
--- NOTE | 2018-12-09 20:00 | NUR ---
pt.assessed.pt.presents isolation status;reverse.pt.presents ventilator.i have reviewed the vent settings;tv;400,fio-2%=96%,a/c;16, peep;4.i have assessed et/ng-tube;i have confirmed the lipline;et-tube.i have attended to the oral care.i have attended to oral suction.i have assessed the iv access;mid-line;lt.bicept.intact;patent;iv fluids.infusing.i have assessed the ng-tube;feed;intact;patent.ng-t feed infusing. i have assessed the peck cath;intact;patent urine content present.pt.presents cardio;s.tachycardia.day shift nsg;sae;rn administered torpol;xr 50mg@1838p.i am to continue the f/u assessment re:h/r status.pt.assessed for cleanliness.pt.repositioned.scd's stocking intact. pt.presents restraints;wrist bilateral.skin/circulation w/in normal limits.affect;restless/loc:confused.o2-sat%=96%.call light/ telephone placed w/in reach of the pt./pt's dtr to remain @the bedside;recliner chair/bed provided.
[2018-12-09] MEDS: LORazepam 1 MG TABLET PO SCH (20:53)
--- NOTE | 2018-12-09 21:00 | NUR ---
2100p medications administered:ativan:1mg po administered via ng-tube.
--- NOTE | 2018-12-09 22:00 | NUR ---
pt.assessed.v/s assessed;h/r presents s.tachycardia.02-sat%=96%.i have attended to the oral care.i have attended to the oral suction.pt.assessed for cleanliness.pt.repositioned.call light/telephone placed w/in reach of the pt.
--- NOTE | 2018-12-09 22:45 | NUR ---
pt.presents agitated status.i have administered ativan;1mg ivp.to f/u re medication efficacy.
[2018-12-10] VITALS (27 sets, daily range): BP systolic 105–159
--- NOTE | 2018-12-10 | NUR ---
pt.assessed.v/s assessed;values w/in normal limits;exc;h/r presents: s.tachycardia.vent settings reviewed.i have attended to the oral/ suction.i have atte to th oral/care.i have assessed the mid-line;intact;patent;iv fluids infusing.i have assessed the ng-tube;lt.nares;skin intact;ng-t feed infusing.i have assessed the peck cath intact;patent;urine content present.o2-sat%=98%.pt.assessed for cleanliness. pt.repositioned.restraints assessed/reviewed in-place.skin circulation;w/in normal limits.call light/telephone placed w/in the reach of the pt.
[2018-12-10] MEDS: IPRATROPIUM BROM 0.5 MG/2.5 ML VIAL.NEB (ATROVENT) INH SCH ×4 (01:03→19:44)
[2018-12-10] MEDS: ALBUTEROL SULFATE 0.083% 2.5 MG/3 ML VIAL.NEB INH SCH ×4 (01:03→19:43)
--- NOTE | 2018-12-10 02:00 | NUR ---
pt.assessed.v/s assessed;h/r rapid.family member;new;son has presented self:@room;exchanged w/dtr.dtr has left the room. vent settings inspected:corresponds to previous settings.i have attended to the oral care.i have attended to the oral suction. ng-t feed intact;patent ;ng-t fed infusing.mid-line intact;patent;iv fluids infusing.peck cath intact;patent;urine content present.scd's compression-stockings intact.restraints;wrist;assessed skin/circulation w/in normal limits.call light/telephone placed w/in reach of the pt.
[2018-12-10] MEDS: LORazepam 2 MG/ML VIAL IVP PRN ×2 (05:19→10:24)
[2018-12-10] MEDS: hydrALAZINE HCL 20 MG/ML VIAL IVP PRN (05:20)
[2018-12-10] MEDS: MEROPENEM 500 MG in NS 50 ML IV SCH ×3 (05:21→21:14)
--- NOTE | 2018-12-10 06:15 | NUR ---
pt.assessed.pt.had presented b/p elevated;i administered vasotec;10mg ivp.pt.presented agitated affect status.i administered ativan:1mg ivp. pt.assessed for cleanliness.pt.cleaned,re-positioned.mid-line;intact;patent;iv fluids infusing;lasix-drip.i have changed the mid-line dsg. peck cath intact;patent;urine content present.ng-t feed intact patent ng-t feed infusing.call light/telephone placed w/in reach of the pt.
[2018-12-10] MEDS: LEVOTHYROXINE SODIUM 0.088 MG TABLET PO SCH (06:18)
[2018-12-10 06:27] LABS: ANION GAP 7 (5-15); CHLORIDE 103 mmol/L (98-107); CREATININE 1.76 mg/dL (0.55-1.30); GLUCOSE 146 mg/dL (70-99); SODIUM SERUM 140 mmol/L (136-145); UREA NITROGEN, BLOOD 42 mg/dL (8-21)
--- NOTE | 2018-12-10 06:50 | NUR ---
DR BRANDYN Toure notified regarding pt's AFib heart rate of 150-160. Orders received. Metoprolol 5mg IVP Q 6HR.
[2018-12-10 07:15] LABS: POTASSIUM 2.8 mmol/L (3.5-5.1)
[2018-12-10] MEDS: METOPROLOL TARTRATE 5 MG/5 ML VIAL IVP SCH ×3 (07:24→18:16)
--- NOTE | 2018-12-10 07:25 | NUR ---
Received report to assume care of pt. HR 130's afib on monitor. BP stable. Pt resting comfortably on the vent. No distress. Minimal urine in peck bag. Restraints in use to prevent pt from pulling out ET. NG with Jevity infusing at 30cc/hr. Tolerating it with no residuals at this time. Pt squeezes my hand when I ask her and shakes head no when asked if she is in pain. Pt has a left upper arm ML in use with a lasix drip at 5mg/hr. Pt respositioned with pillow support and feet lifted off bed with pillows. Will continue to monitor.
[2018-12-10] MEDS ORDERED: AMIODARONE HCL 200 MG TABLET PO ONE (07:45)
[2018-12-10] MEDS ORDERED: LEVOTHYROXINE SODIUM 0.05 MG TABLET PO ONE (08:30)
[2018-12-10] MEDS: PANTOPRAZOLE SODIUM 40 MG/VIAL (PROTONIX) IVP SCH (08:42)
[2018-12-10] MEDS: FUROSEMIDE 20 MG/2 ML VIAL IVP SCH ×2 (08:42→21:16)
[2018-12-10] MEDS: ALLOPURINOL 300 MG TABLET (ZYLOPRIM) PO SCH (08:42)
[2018-12-10] MEDS: LOSARTAN POTASSIUM 50 MG TABLET (COZAAR) PO SCH (08:43)
[2018-12-10] MEDS: POTASSIUM CHLORIDE 20 MEQ TAB.PRT.SR PO SCH ×2 (08:44→21:15)
[2018-12-10] MEDS: METOPROLOL SUCCINATE 50 MG TAB.SR.24H (TOPROL XL) PO SCH ×2 (08:44→21:15)
[2018-12-10 09:19] LABS: HEMATOCRIT 32.4 % (36-48); HEMOGLOBIN 11.3 g/dL (12.0-16.0); MEAN CORPUSCULAR HEMOGLOBIN 32 pg (27-31); MEAN CORPUSCULAR HGB CONC 35 % (32-36); MEAN CORPUSCULAR VOLUME 93 fL (79.0-98.0)
--- NOTE | 2018-12-10 09:40 | NUR ---
Dr. Farris in to see pt. Questions answered. Pt remains comfortable on current vent settings AC 16/400/30%/p4. RR 25. Sats 99%. HOB up. Continues to tolerate tube feeds. Lasix drip off at this time.
[2018-12-10 09:52] LABS: PLATELET COUNT (AUTO) 64 K/uL (130-430)
[2018-12-10 10:04] LABS: BASOPHILS % (MANUAL) 0 % (0-2); EOSINOPHILS % (MANUAL) 2 % (0-7); LYMPHOCYTES % (MANUAL) 32 % (20-46); MONOCYTES % (MANUAL) 2 % (0-11)
[2018-12-10 10:07] LABS: ATYPICAL LYMPHOCYTES % 58 % (0-0)
[2018-12-10] MEDS: FLUCONAZOLE 100 mg/ NS 50 ML IV SCH (12:14)
--- NOTE | 2018-12-10 12:30 | NUR ---
Assumed care of patient, SBAR report received from Desirae ABREU
[2018-12-10] MEDS: AMIODARONE HCL 200 MG TABLET PO SCH ×2 (13:16→21:16)
--- NOTE | 2018-12-10 17:00 | NUR ---
CHG: CHG bath given, gown and linens changed, patient tolerated well with minimal discomfort.
--- NOTE | 2018-12-10 17:20 | NUR ---
Dr Verma at bedside
--- NOTE | 2018-12-10 19:30 | NUR ---
PM ASSESSMENT REPORT RECEIVED FROM HUBERT ABREU. PT RECEIVED IN BED WITH EYES OPEN, RESPONDING TO TACTILE STIMULATION. PT INTUBATED, VENT SETTINGS: AC 12, TV 400, FIO2 30%, PEEP 4. PT A-FIB ON THE MONITOR. TONY MIDLINE INFUSING NS TKO, RAC 22G TO SL, PATENT AND INTACT. L NARE NGT IN PLACE RUNNING JEVITY @ 40 CC/HR. BILATERAL SOFT WRIST RESTRAINTS IN PLACE, NO S/S OF INJURY NOTED. THRASHER CATH IN PLACE DRAINING YELLOW URINE TO GRAVITY. SCDs IN PLACE. HOB ELEVATED, BED IN LOWEST POSITION, CALL LIGHT IN REACH. WILL CONTINUE TO MONITOR PT.
--- NOTE | 2018-12-10 19:40 | NUR ---
ENDORSEMENT: Gave SBAR report and endorsed plan of care to night manager RN Elsy
[2018-12-10] MEDS: LORazepam 1 MG TABLET PO SCH (21:14)
[2018-12-10 21:23] LABS: HEMATOCRIT 31.4 % (36-48); HEMOGLOBIN 10.8 g/dL (12.0-16.0); MEAN CORPUSCULAR HEMOGLOBIN 32 pg (27-31); MEAN CORPUSCULAR HGB CONC 34 % (32-36); MEAN CORPUSCULAR VOLUME 94 fL (79.0-98.0); RED BLOOD CELL COUNT(AUTO) 3.36 MIL/uL (4.2-6.2); RED CELL DISTRIBUTION WIDTH 17.6 % (9.0-15.0); WHITE BLOOD COUNT (AUTO) 4.7 K/uL (4.8-10.8)
[2018-12-10 22:04] LABS: PLATELET COUNT (AUTO) 48 K/uL (130-430)
[2018-12-10 22:28] LABS: ATYPICAL LYMPHOCYTES % 60 % (0-0); BAND % (MANUAL) 1 % (0-6); BASOPHILS % (MANUAL) 0 % (0-2); EOSINOPHILS % (MANUAL) 0 % (0-7); LYMPHOCYTES % (MANUAL) 31 % (20-46); MONOCYTES % (MANUAL) 2 % (0-11)
--- NOTE | 2018-12-10 22:40 | NUR ---
DR. RUSSELL SONI PAGED FOR CRITICAL LABS. WILL AWAIT CALL BACK.
--- NOTE | 2018-12-10 23:05 | NUR ---
DR. WELLS 2ND PAGE TO MAKE MD AWARE OF CRITICAL LABS. WILL AWAIT CALL BACK.
[2018-12-11] VITALS (28 sets, daily range): BP systolic 116–166
[2018-12-11] MEDS: METOPROLOL TARTRATE 5 MG/5 ML VIAL IVP SCH ×4 (00:05→19:55)
[2018-12-11] MEDS: LORazepam 2 MG/ML VIAL IVP PRN ×3 (00:10→14:52)
--- NOTE | 2018-12-11 00:10 | NUR ---
ATIVAN PT RESTLESS AND KICKING IN BED. ATIVAN 1 MG GIVEN PER ORDERS. WILL CONTINUE TO MONITOR PT.
[2018-12-11] MEDS: ALBUTEROL SULFATE 0.083% 2.5 MG/3 ML VIAL.NEB INH SCH ×4 (01:07→19:35)
[2018-12-11] MEDS: IPRATROPIUM BROM 0.5 MG/2.5 ML VIAL.NEB (ATROVENT) INH SCH ×4 (01:08→19:35)
[2018-12-11 06:01] LABS: HEMATOCRIT 32.4 % (36-48); HEMOGLOBIN 11.2 g/dL (12.0-16.0); MEAN CORPUSCULAR HEMOGLOBIN 33 pg (27-31); MEAN CORPUSCULAR HGB CONC 35 % (32-36); MEAN CORPUSCULAR VOLUME 94 fL (79.0-98.0); RED BLOOD CELL COUNT(AUTO) 3.44 MIL/uL (4.2-6.2); RED CELL DISTRIBUTION WIDTH 17.1 % (9.0-15.0); WHITE BLOOD COUNT (AUTO) 4.5 K/uL (4.8-10.8)
[2018-12-11 06:05] LABS: INR 1.2 (0.8-1.2); PROTHROMBIN TIME 12.4 SECS (9.5-12.5)
[2018-12-11] MEDS: MEROPENEM 500 MG in NS 50 ML IV SCH ×3 (06:11→21:32)
[2018-12-11] MEDS: AMIODARONE HCL 200 MG TABLET PO SCH ×3 (06:12→21:33)
[2018-12-11] MEDS: LEVOTHYROXINE SODIUM 0.05 MG TABLET PO SCH (06:12)
[2018-12-11 06:22] LABS: AMYLASE 28 U/L (0-100); THYROID STIMULATING HORMONE < 0.01 uIu/mL (0.36-3.74)
[2018-12-11 07:13] LABS: PLATELET COUNT (AUTO) 47 K/uL (130-430)
--- NOTE | 2018-12-11 07:24 | NUR ---
ENDORSEMENT BEDSIDE REPORT GIVEN TO ATUL ABREU USING SBAR APPROACH.
--- NOTE | 2018-12-11 07:30 | NUR ---
Received report from Elsy ABREU. Pt in no signs of pain or distress currently.
[2018-12-11 07:58] LABS: ALANINE AMINOTRANSFERASE 18 U/L (12-78); ALBUMIN 2.1 g/dL (3.4-4.8); ANION GAP 7 (5-15); ASPARTATE AMINOTRANSFERASE 23 U/L (10-37); CALCIUM 8.6 mg/dL (8.4-11.0); CHLORIDE 104 mmol/L (98-107); CREATININE 1.92 mg/dL (0.55-1.30); GLUCOSE 137 mg/dL (70-99); POTASSIUM 3.4 mmol/L (3.5-5.1); SODIUM SERUM 142 mmol/L (136-145); TOTAL BILIRUBIN 0.8 mg/dL (0.0-1.0); UREA NITROGEN, BLOOD 61 mg/dL (8-21)
[2018-12-11] MEDS: PANTOPRAZOLE SODIUM 40 MG/VIAL (PROTONIX) IVP SCH (08:00)
[2018-12-11] MEDS: POTASSIUM CHLORIDE 20 MEQ TAB.PRT.SR PO SCH (08:00)
--- NOTE | 2018-12-11 08:00 | NUR ---
Initial assessment Initial assessment done. Pt is orally intubated, respiration is unlabored. Remains on Afib with moderately controlled VR. BP stable. NGT in place with continuous feeding. Oakley cath in place with good urine output. Turned and repositioned.
[2018-12-11] MEDS: METOPROLOL SUCCINATE 50 MG TAB.SR.24H (TOPROL XL) PO SCH ×2 (08:01→21:33)
[2018-12-11] MEDS: FUROSEMIDE 20 MG/2 ML VIAL IVP SCH (08:01)
[2018-12-11] MEDS: ALLOPURINOL 300 MG TABLET (ZYLOPRIM) PO SCH (08:04)
[2018-12-11] MEDS: LOSARTAN POTASSIUM 50 MG TABLET (COZAAR) PO SCH (08:05)
[2018-12-11 08:06] LABS: BASOPHILS % (MANUAL) 0 % (0-2); EOSINOPHILS % (MANUAL) 2 % (0-7); MONOCYTES % (MANUAL) 2 % (0-11)
[2018-12-11 08:07] LABS: ATYPICAL LYMPHOCYTES % 55 % (0-0); LYMPHOCYTES % (MANUAL) 35 % (20-46)
[2018-12-11 09:46] LABS: CHOLESTEROL 81 mg/dL (<200); HDL CHOLESTEROL 16 mg/dL (>55); LDL CHOLESTEROL 48 mg/dL (<100); TRIGLYCERIDES 82 mg/dL (30-150)
--- NOTE | 2018-12-11 10:00 | NUR ---
Procedure Received call from Patricia (Surgery) called to inform us that Bone marrow biopsy was cancelled.
[2018-12-11] MEDS: FLUCONAZOLE 100 mg/ NS 50 ML IV SCH (10:57)
--- NOTE | 2018-12-11 14:00 | NUR ---
Family at bedside. Repositioned to side. Tolerating tube feeding well. VSS.
[2018-12-11] MEDS: VANCOMYCIN HCL 750 MG in NS 250 ML IV SCH (14:55)
--- NOTE | 2018-12-11 18:10 | NUR ---
Dr. Farris was here. No vent setting change. Repositioned to side. Urine output adequate.
--- NOTE | 2018-12-11 18:17 | NUR ---
CONSULT NEPHRO. DR. ORDONEZ CALLED (DR. VELASQUEZ TRAFFIC INCIDENT MANAGEMENT MANAGER) SPOKE TO REGLARY DIALED [phone] ROSEN
--- NOTE | 2018-12-11 19:20 | NUR ---
Endorsed plan of care to Elsy ABREU via SBAR.
--- NOTE | 2018-12-11 19:30 | NUR ---
PM ASSESSMENT REPORT RECEIVED FROM NHAN ABREU. PT RECEIVED IN BED WITH EYES OPEN, RESPONDING TO TACTILE STIMULATION. VSS, NO S/S OF ACUTE DISTRESS NOTED. PT INTUBATED, VENT SETTINGS: AC 12, TV 400, FIO2 30%, PEEP 4. A-FIB ON MONITOR. BILATERAL SOFT WRIST RESTRAINTS IN PLACE, NO S/S OF INJURY NOTED. TONY MIDLINE INFUSING NS TKO, RAC 22G TO SL, PATENT AND INTACT. L NARE NGT RUNNING JEVITY @ 40 CC/HR. THRASHER CATH IN PLACE DRAINING YELLOW URINE TO GRAVITY. SCDs IN PLACE. HOB ELEVATED, BED IN LOWEST POSITION, CALL LIGHT IN REACH. WILL CONTINUE TO MONITOR PT.
--- NOTE | 2018-12-11 20:00 | NUR ---
DR. EVA SONI AT BEDSIDE TO EVALUATE PT. NO NEW ORDERS RECEIVED AT THIS TIME. WILL CONTINUE TO MONITOR PT.
[2018-12-11] MEDS: LORazepam 1 MG TABLET PO SCH (21:32)
--- NOTE | 2018-12-11 22:00 | NUR ---
DR. WELLS UNABLE TO REACH MD. PT PLT 47. PER STANDING ORDER FROM DR. WELLS ON 12/08: HGB <8 TRANSFUSE 2 UNITS PRBCS, PLT <50 TRANSFUSE 1 UNIT PLTS. WILL CARRY OUT ORDERED.
[2018-12-12] VITALS (32 sets, daily range): BP systolic 111–165
[2018-12-12] MEDS: METOPROLOL TARTRATE 5 MG/5 ML VIAL IVP SCH ×4 (00:13→20:01)
[2018-12-12] MEDS: ALBUTEROL SULFATE 0.083% 2.5 MG/3 ML VIAL.NEB INH SCH ×4 (01:10→19:10)
[2018-12-12] MEDS: IPRATROPIUM BROM 0.5 MG/2.5 ML VIAL.NEB (ATROVENT) INH SCH ×4 (01:11→19:10)
--- NOTE | 2018-12-12 01:24 | NUR ---
PLATELETS PER LAB [facility] DOES NOT HAVE B- PLATELETS AVAILABLE. MUST HAVE MD APPROVAL TO TRANSFUSE O- PLATELETS. WILL REQUEST MD ORDER.
--- NOTE | 2018-12-12 01:30 | NUR ---
DR. RUSSELL SALINAS MD FOR ORDERS.
--- NOTE | 2018-12-12 02:27 | NUR ---
DR. ROSEN UNABLE TO REACH DR. WELLS FOR ORDERS. PER DR. SILAS PINTO TO TRANSFUSE O- PLTS. WILL CARRY OUT ORDERED.
[2018-12-12] MEDS: LORazepam 2 MG/ML VIAL IVP PRN ×2 (03:17→09:15)
[2018-12-12] MEDS: AMIODARONE HCL 200 MG TABLET PO SCH ×3 (06:06→22:01)
[2018-12-12] MEDS: LEVOTHYROXINE SODIUM 0.05 MG TABLET PO SCH (06:06)
[2018-12-12] MEDS: MEROPENEM 500 MG in NS 50 ML IV SCH ×3 (06:07→22:02)
[2018-12-12 06:11] LABS: HEMATOCRIT 31.3 % (36-48); HEMOGLOBIN 10.6 g/dL (12.0-16.0); MEAN CORPUSCULAR HEMOGLOBIN 33 pg (27-31); MEAN CORPUSCULAR HGB CONC 34 % (32-36); MEAN CORPUSCULAR VOLUME 97 fL (79.0-98.0); RED BLOOD CELL COUNT(AUTO) 3.24 MIL/uL (4.2-6.2); RED CELL DISTRIBUTION WIDTH 17.9 % (9.0-15.0); WHITE BLOOD COUNT (AUTO) 3.3 K/uL (4.8-10.8)
[2018-12-12 07:13] LABS: PLATELET COUNT (AUTO) 35 K/uL (130-430)
--- NOTE | 2018-12-12 07:16 | NUR ---
ENDORSEMENT BESIDE REPORT GIVEN TO ATUL ABREU USING SBAR APPROACH.
[2018-12-12 07:23] LABS: ALANINE AMINOTRANSFERASE 38 U/L (12-78); ALBUMIN 1.7 g/dL (3.4-4.8); ANION GAP 2 (5-15); ASPARTATE AMINOTRANSFERASE 50 U/L (10-37); CALCIUM 8.3 mg/dL (8.4-11.0); CHLORIDE 108 mmol/L (98-107); CREATININE 1.76 mg/dL (0.55-1.30); GLUCOSE 134 mg/dL (70-99); POTASSIUM 4.5 mmol/L (3.5-5.1); SODIUM SERUM 143 mmol/L (136-145); TOTAL BILIRUBIN 0.7 mg/dL (0.0-1.0); UREA NITROGEN, BLOOD 63 mg/dL (8-21)
--- NOTE | 2018-12-12 07:30 | NUR ---
Received report from Elsy ABREU. Pt in no signs of pain or distress currently.
--- NOTE | 2018-12-12 08:00 | NUR ---
Initial assessment Initial assessment done. Rmains orally intubated, respiration unlabored, vent settings unchanged. scope shows Afib with moderately controlld VR. Bp stable. Ngt feeding continuous at 40 ml/hr. Oakley cath draining well.
[2018-12-12] MEDS: PANTOPRAZOLE SODIUM 40 MG/VIAL (PROTONIX) IVP SCH (08:35)
[2018-12-12] MEDS: ALLOPURINOL 300 MG TABLET (ZYLOPRIM) PO SCH (08:35)
[2018-12-12] MEDS: LOSARTAN POTASSIUM 50 MG TABLET (COZAAR) PO SCH (08:36)
[2018-12-12] MEDS: POTASSIUM CHLORIDE 20 MEQ TAB.PRT.SR PO SCH (08:37)
[2018-12-12] MEDS: METOPROLOL SUCCINATE 50 MG TAB.SR.24H (TOPROL XL) PO SCH ×2 (08:38→22:01)
[2018-12-12] MEDS ORDERED: FUROSEMIDE 20 MG/2 ML VIAL IVP SCH (09:00)
--- NOTE | 2018-12-12 10:00 | NUR ---
Dr. Mira Meyers at bedside, update given. Orders received to follow parameters for platelet infusion.
--- NOTE | 2018-12-12 10:15 | NUR ---
Dr. Kaleigh Farris was here, examined patient. orders received.
--- NOTE | 2018-12-12 10:27 | NUR ---
Platelets Platelet infusion started via RU arm midline . [facility] update given to pt's daughter.
--- NOTE | 2018-12-12 10:30 | NUR ---
RT NOTES Per Dr Farris's order, pushed ETT 2cm down, secured at 24cm lipline, vent settings to SIMV 8 PS 10. No adverse reactions noted. Bilat. B/s/chest rise noted. Will monitor pt.
--- NOTE | 2018-12-12 10:30 | NUR ---
Vent change Patient placed on IMV 8 AND PS 10 per MD's order.
[2018-12-12 10:48] LABS: LYMPHOCYTES % (MANUAL) 43 % (20-46)
[2018-12-12 10:49] LABS: ATYPICAL LYMPHOCYTES % 51 % (0-0); BASOPHILS % (MANUAL) 0 % (0-2); EOSINOPHILS % (MANUAL) 0 % (0-7); MONOCYTES % (MANUAL) 2 % (0-11)
[2018-12-12] MEDS: FLUCONAZOLE 100 mg/ NS 50 ML IV SCH (12:13)
--- NOTE | 2018-12-12 14:30 | NUR ---
Continues to do well with new vent changes. o2 saturation maintained >97%. Suctioned moderate secretions.
--- NOTE | 2018-12-12 15:00 | NUR ---
Dr. Pillai was here, update given, examined patient.
[2018-12-12] MEDS: VANCOMYCIN HCL 750 MG in NS 250 ML IV SCH (15:01)
--- NOTE | 2018-12-12 16:04 | NUR ---
Dietitian Recommendations * Recommend Vital AF 1.2 at 45mL/hr, Free Water Flush: 200mL Q4H via NGT Provides: 1296 kcal/day, 81 gm of protein/day, 2076 ml free water/day. Meets: 106% of estimated caloric needs and 91% of upper end estimated protein needs. LP, RD Please refer to Nutrition Assessment for details. Signed: 12/12/18 at 1605 by Yuliya DE LA CRUZ <Co-Signature Required> Co-Signed: 12/12/18 at [address] Addendum: 12/12/18 at 1605 by Yuliya DE LA CRUZ Amended: Links added.
--- NOTE | 2018-12-12 18:06 | NUR ---
Dr. Verma was here, updated. VSS. urine output adequate.
--- NOTE | 2018-12-12 19:13 | NUR ---
Endorsed plan of care to Elsy ABREU via SBAR.
--- NOTE | 2018-12-12 19:30 | NUR ---
PM ASSESSMENT REPORT RECEIVED FROM NHAN/ROGELIO RN. PT RECEIVED IN BED WITH EYES CLOSED, RESPONDING TO TACTILE STIMULATION. VSS, NO S/S OF ACUTE DISTRESS NOTED. PT INTUBATED, VENT SETTINGS: SIMV 8, TV 400, FIO2 30%, PEEP 4, PS 10. A-FIB ON MONITOR. TONY MIDLINE IN PLACE INFUSING NS TKO, RAC 22G TO SL. L NARE NGT RUNNING JEVITY TF @ 40 CC/HR. THRASHER CATH IN PLACE DRAINING YELLOW URINE TO GRAVITY. SCDS IN PLACE. HOB ELEVATED, BED IN LOWEST POSITION, CALL LIGHT IN REACH. WILL CONTINUE TO MONITOR PT.
[2018-12-12] MEDS: LORazepam 1 MG TABLET PO SCH (22:00)
--- NOTE | 2018-12-12 22:00 | NUR ---
TUBEFEEDING TF CHANGED TO VITAL AF @ 45 CC/HR PER ORDERS.
[2018-12-13] VITALS (36 sets, daily range): BP systolic 115–152
[2018-12-13] MEDS: METOPROLOL TARTRATE 5 MG/5 ML VIAL IVP SCH ×4 (00:16→18:30)
--- NOTE | 2018-12-13 00:30 | NUR ---
RESIDUAL TF RESIDUAL 265 CC AT THIS TIME. TF HELD, WILL CONTINUE TO MONITOR.
[2018-12-13] MEDS: ALBUTEROL SULFATE 0.083% 2.5 MG/3 ML VIAL.NEB INH SCH ×4 (00:55→20:39)
[2018-12-13] MEDS: IPRATROPIUM BROM 0.5 MG/2.5 ML VIAL.NEB (ATROVENT) INH SCH ×4 (00:55→20:39)
[2018-12-13 05:50] LABS: ALANINE AMINOTRANSFERASE 32 U/L (12-78); ALBUMIN 1.7 g/dL (3.4-4.8); ANION GAP 7 (5-15); ASPARTATE AMINOTRANSFERASE 30 U/L (10-37); CALCIUM 8.5 mg/dL (8.4-11.0); CHLORIDE 109 mmol/L (98-107); CREATININE 1.62 mg/dL (0.55-1.30); GLUCOSE 119 mg/dL (70-99); POTASSIUM 4.4 mmol/L (3.5-5.1); SODIUM SERUM 147 mmol/L (136-145); TOTAL BILIRUBIN 0.7 mg/dL (0.0-1.0); UREA NITROGEN, BLOOD 59 mg/dL (8-21)
[2018-12-13] MEDS: LEVOTHYROXINE SODIUM 0.05 MG TABLET PO SCH (06:08)
[2018-12-13] MEDS: AMIODARONE HCL 200 MG TABLET PO SCH ×3 (06:09→21:04)
[2018-12-13] MEDS: MEROPENEM 500 MG in NS 50 ML IV SCH ×3 (06:11→21:03)
--- NOTE | 2018-12-13 06:20 | NUR ---
DR. MARILYN SONI AT BEDSIDE TO EVALUATE PT. NO NEW ORDERS RECEIVED AT THIS TIME. WILL CONTINUE TO MONITOR PT.
[2018-12-13 06:47] LABS: HEMATOCRIT 27.9 % (36-48); HEMOGLOBIN 9.4 g/dL (12.0-16.0); MEAN CORPUSCULAR HEMOGLOBIN 33 pg (27-31); MEAN CORPUSCULAR HGB CONC 34 % (32-36); MEAN CORPUSCULAR VOLUME 98 fL (79.0-98.0); RED BLOOD CELL COUNT(AUTO) 2.87 MIL/uL (4.2-6.2); RED CELL DISTRIBUTION WIDTH 17.7 % (9.0-15.0); WHITE BLOOD COUNT (AUTO) 2.6 K/uL (4.8-10.8)
--- NOTE | 2018-12-13 07:15 | NUR ---
Endorsement Received shift report from zack ABREU
--- NOTE | 2018-12-13 07:15 | NUR ---
Opening Note Patient received in bed connected to social work assistant with a-fib. Patient on ventilator with settings of SIMV 8, tidal volume 400, FiO2 30%, PEEP of 4, and pressure support 10. Patient has a left upper arm midline patent and saline-locked. Patient has a left nare NGT infusing Vital AF @ 45 ml/hr. Patient has a peck catheter in place draining yellow urine. Skin intact. Safety precautions enforced.
[2018-12-13 07:34] LABS: PLATELET COUNT (AUTO) 27 K/uL (130-430)
--- NOTE | 2018-12-13 07:37 | NUR ---
MD Rounds Dr. Case @ bedside for examination. New orders received.
--- NOTE | 2018-12-13 09:35 | NUR ---
RT NOTES Vent settings to CPAP [address] Farris's order. No adverse reactions noted. Will monitor pt. Addendum: 12/13/18 at 1007 by Ligia Gonzalez RT Amended: Links added.
--- NOTE | 2018-12-13 09:43 | NUR ---
MD Rounds Dr. Farris @ bedside for examination. New orders received.
[2018-12-13 09:44] LABS: BAND % (MANUAL) 2 % (0-6); BASOPHILS % (MANUAL) 0 % (0-2); EOSINOPHILS % (MANUAL) 2 % (0-7); LYMPHOCYTES % (MANUAL) 27 % (20-46); MONOCYTES % (MANUAL) 2 % (0-11)
[2018-12-13] MEDS: FUROSEMIDE 20 MG/2 ML VIAL IVP SCH ×2 (09:50→21:03)
[2018-12-13] MEDS: ALLOPURINOL 300 MG TABLET (ZYLOPRIM) PO SCH (09:51)
[2018-12-13] MEDS: METOPROLOL SUCCINATE 50 MG TAB.SR.24H (TOPROL XL) PO SCH ×2 (09:51→21:04)
[2018-12-13] MEDS: POTASSIUM CHLORIDE 20 MEQ TAB.PRT.SR PO SCH (09:51)
[2018-12-13] MEDS: PANTOPRAZOLE SODIUM 40 MG/VIAL (PROTONIX) IVP SCH (09:51)
[2018-12-13] MEDS: LOSARTAN POTASSIUM 50 MG TABLET (COZAAR) PO SCH (09:52)
--- NOTE | 2018-12-13 10:02 | NUR ---
MD Rounds Dr. Meyers @ bedside for examination. New orders received.
--- NOTE | 2018-12-13 10:28 | NUR ---
MD Rounds Dr. Wiggins @ bedside for examination. No new orders received.
[2018-12-13] MEDS: FLUCONAZOLE 100 mg/ NS 50 ML IV SCH (11:36)
--- NOTE | 2018-12-13 13:00 | NUR ---
Platelets Transfusing 1 unit platelet @ this time. No signs of distress noted. Patient tolerating transfusion well.
[2018-12-13] MEDS: VANCOMYCIN HCL 750 MG in NS 250 ML IV SCH (16:06)
--- NOTE | 2018-12-13 16:30 | NUR ---
Dr. Farris discussed with family regarding patient status and code status. Patient's family stated they want to have patient on CPAP until the next day. New orders received from .
--- NOTE | 2018-12-13 17:15 | NUR ---
CHG CHG performed and linens changed. Patient tolerated procedure well.
--- NOTE | 2018-12-13 19:05 | NUR ---
Endorsement Handoff report given to night RN using SBAR.
--- NOTE | 2018-12-13 19:20 | NUR ---
Closing notes Pt is resting with family at bedside. No signs of distress or pain. Bed locked and in lowest position.
--- NOTE | 2018-12-13 19:25 | NUR ---
PM ASSESSMENT Pt in bed with eyes closed resting comfortably, no signs of acute distress or discomfort noted. Family at bedside. VSS with controlled AFIB seen on the monitor. Pt intubated, on CPAP 5, PS 10, tolerating well with O2 sats @ 98% and even and unlabored breathing. Pt has TONY midline, c/d/i. NG tube noted to L nare infusing tubefeeding Vital AF @ 45 cc/hr. Oakley output noted draining urine to gravity. SCD's noted to bilateral lower extremities. Bed is locked and in lowest position, call light within reach, will cont to monitor pt.
--- NOTE | 2018-12-13 20:35 | NUR ---
Pt's vent settings changed to SIMV 8, TV 400, PS 10 and PEEP of 5 per RT. Will cont to monitor pt.
[2018-12-13] MEDS: LORazepam 1 MG TABLET PO SCH (21:04)
--- NOTE | 2018-12-13 22:10 | NUR ---
Pt in bed with eyes open resting comfortably. Pt still kicking feet at this time. Family at bedside. Pt repositioned at this time. Pt tolerated well. Bed is locked and in lowest position, call light within reach, will cont to monitor pt.
[2018-12-14] VITALS (29 sets, daily range): BP systolic 119–144
--- NOTE | 2018-12-14 00:10 | NUR ---
Pt resting in bed with eyes closed resting comfortably, no signs of acute distress or discomfort noted. Pt tolerating vent settings change, with even and unlabored breathing and O2 sats @ 96%. Pt's tubefeeding residual checked, 360 cc at this time. Tubefeeding held and will cont to monitor residual. Bed is locked and in lowest position, call light within reach, will cont to monitor pt.
--- NOTE | 2018-12-14 01:10 | NUR ---
RESIDUAL Pt's residual 160 cc at this time. Tubefeeding still on hold. Will cont to monitor pt.
[2018-12-14] MEDS: METOPROLOL TARTRATE 5 MG/5 ML VIAL IVP SCH ×4 (01:32→17:57)
[2018-12-14] MEDS: ALBUTEROL SULFATE 0.083% 2.5 MG/3 ML VIAL.NEB INH SCH ×4 (01:45→20:09)
[2018-12-14] MEDS: IPRATROPIUM BROM 0.5 MG/2.5 ML VIAL.NEB (ATROVENT) INH SCH ×4 (01:46→20:09)
--- NOTE | 2018-12-14 02:10 | NUR ---
RESIDUAL Pt's residual 100 cc at this time. Tubefeeding still on hold. Will cont to monitor pt.
--- NOTE | 2018-12-14 03:10 | NUR ---
RESIDUAL Pt's residual 60 cc at this time. Tubefeeding still on hold. Will cont to monitor pt.
[2018-12-14] MEDS: LORazepam 2 MG/ML VIAL IVP PRN (03:57)
--- NOTE | 2018-12-14 04:10 | NUR ---
Pt in bed with eyes closed resting comfortably. No signs of acute distress or discomfort noted. Pt's residual's 30 cc at this time. Tubefeeding resumed @ 45 cc/hr. Pt repostioned at this time. Will cont to monitor pt.
[2018-12-14 05:49] LABS: BASOPHILS % (AUTO) 0.4 % (0.0-2.0); EOSINOPHILS % (AUTO) 1.4 % (0.0-4.0); HEMATOCRIT 26.3 % (36-48); HEMOGLOBIN 8.9 g/dL (12.0-16.0); LYMPHOCYTES # (AUTO) 1.4 K/uL (1.0-5.5); LYMPHOCYTES % (AUTO) 52.8 % (20.5-51.5); MEAN CORPUSCULAR HEMOGLOBIN 33 pg (27-31); MEAN CORPUSCULAR HGB CONC 34 % (32-36); MEAN CORPUSCULAR VOLUME 97 fL (79.0-98.0); NEUTROPHILS % (AUTO) 6.4 % (40.0-70.0); PLATELET COUNT (AUTO) 56 K/uL (130-430); RED BLOOD CELL COUNT(AUTO) 2.72 MIL/uL (4.2-6.2); RED CELL DISTRIBUTION WIDTH 17.7 % (9.0-15.0); WHITE BLOOD COUNT (AUTO) 2.7 K/uL (4.8-10.8)
[2018-12-14 05:51] LABS: NEUTROPHILS # (AUTO) 0.2 K/uL (1.8-7.7)
[2018-12-14] MEDS: MEROPENEM 500 MG in NS 50 ML IV SCH ×3 (06:02→21:16)
[2018-12-14] MEDS: LEVOTHYROXINE SODIUM 0.05 MG TABLET PO SCH (06:03)
[2018-12-14] MEDS: AMIODARONE HCL 200 MG TABLET PO SCH ×3 (06:03→21:16)
[2018-12-14 06:10] LABS: ALANINE AMINOTRANSFERASE 35 U/L (12-78); ALBUMIN 1.7 g/dL (3.4-4.8); ANION GAP 3 (5-15); ASPARTATE AMINOTRANSFERASE 20 U/L (10-37); CALCIUM 8.2 mg/dL (8.4-11.0); CHLORIDE 112 mmol/L (98-107); CREATININE 1.64 mg/dL (0.55-1.30); GLUCOSE 121 mg/dL (70-99); POTASSIUM 3.6 mmol/L (3.5-5.1); SODIUM SERUM 147 mmol/L (136-145); TOTAL BILIRUBIN 0.9 mg/dL (0.0-1.0); UREA NITROGEN, BLOOD 54 mg/dL (8-21)
--- NOTE | 2018-12-14 07:25 | NUR ---
ENDORSEMENT Report given to oncoming RN and pt care was endorsed. No signs of acute distress or discomfort noted.
--- NOTE | 2018-12-14 07:30 | NUR ---
Opening Note Patient received in bed @ this time connected to youth nutritional monitor with a-fib. Patient on CPA 5, pressure support 10, and FiO2 30%. No signs of distress noted. Patient has a left upper arm midline patent and saline-locked. Patient also has a right AC 22 IV saline-locked. Patient has a NGT in place. Patient has a peck catheter in place draining yellow urine. Skin intact. Safety precautions enforced.
--- NOTE | 2018-12-14 08:00 | NUR ---
MD Rounds Dr. Case @ bedside for examination.
--- NOTE | 2018-12-14 08:15 | NUR ---
MD Rounds Dr. Farris @ bedside for examination.
[2018-12-14] MEDS: PANTOPRAZOLE SODIUM 40 MG/VIAL (PROTONIX) IVP SCH (08:48)
[2018-12-14] MEDS: FUROSEMIDE 20 MG/2 ML VIAL IVP SCH ×2 (08:48→20:01)
[2018-12-14] MEDS: ALLOPURINOL 300 MG TABLET (ZYLOPRIM) PO SCH (08:49)
[2018-12-14] MEDS: POTASSIUM CHLORIDE 20 MEQ TAB.PRT.SR PO SCH (08:49)
[2018-12-14] MEDS: METOPROLOL SUCCINATE 50 MG TAB.SR.24H (TOPROL XL) PO SCH ×2 (08:49→20:01)
[2018-12-14] MEDS: LOSARTAN POTASSIUM 50 MG TABLET (COZAAR) PO SCH (08:50)
[2018-12-14] MEDS ORDERED: LORazepam 2 MG/ML VIAL IVP PRN (09:00)
[2018-12-14 09:49] LABS: ATYPICAL LYMPHOCYTES % 55 % (0-0)
[2018-12-14] MEDS: FLUCONAZOLE 100 mg/ NS 50 ML IV SCH (10:40)
--- NOTE | 2018-12-14 10:57 | NUR ---
rt notes [address] haney, extubate pt ICU 2. put pt to 2-3lpm nasal cannula. If distress, Bipap 12/. Extubate pt to nasal cannula 3lpm. pt tolerated well. sxn'd pt orally. pt sat 95-96%. no distress at the moment. encouraged pt to do deep breaths. will continue to monitor pt. patternmaker pressure cast tracy, dylan abbott/ashwin aware.
--- NOTE | 2018-12-14 11:00 | NUR ---
Extubation Patient extubated @ this time. RT and RN @ bedside. Patient able to tolerate procedure well. O2 saturations > 95%. No signs of distress noted.
--- NOTE | 2018-12-14 11:15 | NUR ---
MD Rounds Dr. Bae @ bedside for examination.
[2018-12-14] MEDS: VANCOMYCIN HCL 750 MG in NS 250 ML IV SCH (14:43)
--- NOTE | 2018-12-14 15:00 | NUR ---
Midline dressing change Midline dressing changed. New dressing c/d/i. Patient tolerated procedure well.
--- NOTE | 2018-12-14 15:20 | NUR ---
CHG CHG bath given and linens changed. Patient tolerated procedure well.
[2018-12-14] MEDS: D5W 1,000 ML IV SCH (15:41)
--- NOTE | 2018-12-14 17:15 | NUR ---
MD Rounds Dr. Meyers @ bedside for examination.
--- NOTE | 2018-12-14 19:10 | NUR ---
PM ASSESSMENT Pt in bed with eyes closed resting comfortably, no signs of acute distress or discomfort noted. Family at bedside. VSS with controlled AFIB seen on the monitor. Pt on 2L O2 via NC, tolerating well with O2 sats @ 98% and even and unlabored breathing. Pt has TONY midline, c/d/i. NG tube noted to L nare infusing tubefeeding Vital AF @ 45 cc/hr. Oakley output noted draining urine to gravity. SCD's noted to bilateral lower extremities. Bed is locked and in lowest position, call light within reach, will cont to monitor pt.
--- NOTE | 2018-12-14 19:21 | NUR ---
Closing Note Endorsed patient to shift production supervisor RN using SBAR format. Patient in no signs of distress. Family @ bedside.
[2018-12-14] MEDS: LORazepam 1 MG TABLET PO SCH (20:00)
[2018-12-15] VITALS (15 sets, daily range): BP systolic 116–150
--- NOTE | 2018-12-15 00:10 | NUR ---
Pt in bed with eyes closed resting comfortably. No signs of acute distress or discomfort noted. Pt's tubefeeding residual at this time is 200 cc. Tubefeeding put on hold at this time per MD order. Will cont to monitor pt.
--- NOTE | 2018-12-15 01:10 | NUR ---
RESIDUAL Pt's residual 150 cc at this time. Tubefeeding still on hold per MR order. Will cont to monitor pt.
[2018-12-15] MEDS: METOPROLOL TARTRATE 5 MG/5 ML VIAL IVP SCH ×4 (01:14→18:01)
[2018-12-15] MEDS: IPRATROPIUM BROM 0.5 MG/2.5 ML VIAL.NEB (ATROVENT) INH SCH ×4 (01:48→20:14)
[2018-12-15] MEDS: ALBUTEROL SULFATE 0.083% 2.5 MG/3 ML VIAL.NEB INH SCH ×4 (01:48→20:14)
--- NOTE | 2018-12-15 02:58 | NUR ---
RESIDUAL Pt's residual 80cc at this time. Tubefeeding still on hold per MD order, will cont to monitor pt.
--- NOTE | 2018-12-15 04:10 | NUR ---
Pt in bed with eyes open resting comfortably. No signs of acute distress or discomfort noted. Pt's residual at this time is 30 cc. Tubefeeding restarted @ 45 cc/hr per MD order. Bed is locked and in lowest position, call light within reach, will cont to monitor.
[2018-12-15 05:51] LABS: EOSINOPHILS % (AUTO) 2.3 % (0.0-4.0); HEMATOCRIT 29.3 % (36-48); HEMOGLOBIN 9.6 g/dL (12.0-16.0); MEAN CORPUSCULAR HEMOGLOBIN 33 pg (27-31); MEAN CORPUSCULAR HGB CONC 33 % (32-36); MEAN CORPUSCULAR VOLUME 99 fL (79.0-98.0); MONOCYTES # (AUTO) 0.9 K/uL (0.0-1.0); NEUTROPHILS % (AUTO) 6.7 % (40.0-70.0); RED BLOOD CELL COUNT(AUTO) 2.96 MIL/uL (4.2-6.2); RED CELL DISTRIBUTION WIDTH 18.3 % (9.0-15.0); WHITE BLOOD COUNT (AUTO) 2.1 K/uL (4.8-10.8)
[2018-12-15 05:56] LABS: NEUTROPHILS # (AUTO) 0.1 K/uL (1.8-7.7); PLATELET COUNT (AUTO) 46 K/uL (130-430)
[2018-12-15 06:01] LABS: ALANINE AMINOTRANSFERASE 28 U/L (12-78); ALBUMIN 1.7 g/dL (3.4-4.8); ANION GAP 0 (5-15); ASPARTATE AMINOTRANSFERASE 14 U/L (10-37); CALCIUM 8.6 mg/dL (8.4-11.0); CHLORIDE 113 mmol/L (98-107); CREATININE 1.45 mg/dL (0.55-1.30); GLUCOSE 125 mg/dL (70-99); POTASSIUM 3.7 mmol/L (3.5-5.1); SODIUM SERUM 145 mmol/L (136-145); TOTAL BILIRUBIN 0.8 mg/dL (0.0-1.0); UREA NITROGEN, BLOOD 52 mg/dL (8-21)
[2018-12-15] MEDS: MEROPENEM 500 MG in NS 50 ML IV SCH ×3 (06:01→21:03)
[2018-12-15] MEDS: AMIODARONE HCL 200 MG TABLET PO SCH ×3 (06:01→22:07)
[2018-12-15] MEDS: LEVOTHYROXINE SODIUM 0.05 MG TABLET PO SCH (06:01)
--- NOTE | 2018-12-15 06:35 | NUR ---
Page out to Dr. Meyers for critical lab value. Spoke to Jen at exchange.
--- NOTE | 2018-12-15 06:58 | NUR ---
Second page out to Dr. Meyers for critical lab value. Spoke to Mirtha at exchange.
--- NOTE | 2018-12-15 07:07 | NUR ---
ENDORSEMENT Report given to oncoming day shift RN and pt care was endorsed, no signs of acute distress or discomfort noted.
--- NOTE | 2018-12-15 07:10 | NUR ---
AM Opening note Received endorsement from night monitor RN. Pt in no signs of pain or distress at this time on 2L O2 via NC. Pt awake and confused.
[2018-12-15] MEDS: PANTOPRAZOLE SODIUM 40 MG/VIAL (PROTONIX) IVP SCH (09:01)
[2018-12-15] MEDS: FUROSEMIDE 20 MG/2 ML VIAL IVP SCH ×2 (09:01→21:02)
[2018-12-15] MEDS: LOSARTAN POTASSIUM 50 MG TABLET (COZAAR) PO SCH (09:02)
[2018-12-15] MEDS: METOPROLOL SUCCINATE 50 MG TAB.SR.24H (TOPROL XL) PO SCH ×2 (09:02→21:03)
[2018-12-15] MEDS: POTASSIUM CHLORIDE 20 MEQ TAB.PRT.SR PO SCH (09:02)
[2018-12-15] MEDS: ALLOPURINOL 300 MG TABLET (ZYLOPRIM) PO SCH (09:02)
--- NOTE | 2018-12-15 10:00 | NUR ---
Pt noted pulling at NGT multiple times regardless of reorientation and education. Pt's daughter Anastasiia and made aware of situation.
--- NOTE | 2018-12-15 10:50 | NUR ---
Changed to Telemetry status Monitoring pt in telemetry status until bed available.
[2018-12-15] MEDS: FLUCONAZOLE 100 mg/ NS 50 ML IV SCH (12:08)
--- NOTE | 2018-12-15 12:40 | NUR ---
Platelet 1 unit transfusion initiated per Dr. Meyers's order. Second RN present for verification.
--- NOTE | 2018-12-15 12:55 | NUR ---
Platelet transfusion 15 mins after initiation, pt in no signs of distress.
[2018-12-15] MEDS: VANCOMYCIN HCL 750 MG in NS 250 ML IV SCH (15:16)
[2018-12-15] MEDS: D5W 1,000 ML IV SCH (15:17)
--- NOTE | 2018-12-15 15:24 | NUR ---
Continuation of care Assumed care for patient. Patient sleeping comfortably in bed with no signs of distress noted. Safety precautions in place. Call light in reach.
--- NOTE | 2018-12-15 17:12 | NUR ---
Nutrition Follow Up RD reviewed pt's current EMR including diet Hx, physician notes, nursing notes, pertinent labs/m,eds/procedures, care trends and care activity. Current diet order: Vital AF 1.2 at 45ml/hr with 200ml FWF Q4H via NGT Subjective Information: Pt is tolerating TF at this time, but has episode of pulling out G-tube likely due to confusion per nursing. Residuals at 80ml. Pt seen resting in bed, asleep upon RD interview. No signs of distress. TF running as ordered, 143ml infused at time of RD visit. Current TF meets 106%kcal and 91%pro est nutrition needs. Estimated Energy Expenditure (kcals/day) 1222 kcal/day ([id number] d/t critical illness, intubation) Estimated Protein Required (g/day) 89-118 gm/day (1.5-2 gm/kg CBW for sepsis) Estimated Fluid Required (l/day) Defer to MD d/t CHF Problem/Etiology/Signs/Symptoms Increased nutritional needs related to metabolic condition as evidenced by estimated nutritional needs for sepsis. *ongoing* Expected Outcomes/Goals - Monitor TF tolerance w/ goals of pt meeting greater than 100% of estimated nutritional needs, labs trending WML, and skin integrity/wt maintenance. Dietitian Recommendations * Continue Vital AF 1.2 at 45mL/hr, Free Water Flush: 200mL Q4H via NGT Provides: 1296 kcal/day, 81 gm of protein/day, 2076 ml free water/day. Meets: 106% of estimated caloric needs and 91% of upper end estimated protein needs. Follow Up High Risk: F/U in 2-3days LT, RD
--- NOTE | 2018-12-15 17:17 | NUR ---
Dietitian Recommendations * Continue Vital AF 1.2 at 45mL/hr, Free Water Flush: 200mL Q4H via NGT Provides: 1296 kcal/day, 81 gm of protein/day, 2076 ml free water/day. Meets: 106% of estimated caloric needs and 91% of upper end estimated protein needs. Please see Nutrition Follow Up for details. LT, RD
--- NOTE | 2018-12-15 18:45 | NUR ---
Transfer Patient transferred to telemetry room 114 via bed. Patient endorsed to security shift manager apple checker using SBAR format. Patient tolerated transfer well. No signs of distress noted.
--- NOTE | 2018-12-15 19:15 | NUR ---
CHANGE OF SHIFT; pt. transferred from ICU, report given by nurse Ding. observed contact isolation for MRSA nares and Reverse Isolation for Pancytopenia. pt. awake, with bilateral soft wrist restrains when received, quite restless. pt. close to nurses station, will assess later.
--- NOTE | 2018-12-15 20:00 | NUR ---
NOTES: pt. nonverbal, making some sounds. quite restless. able to move lower extremities and pretty strong on upper extremities, trying to move even with restraints. PICC line on left upper arm, IV D5W to resume @ 30 cc/hr. NGT intact Vital AF feeding to resume @ 45 cc/hr. cardiac pattern on atrial fib. on bed alarm, risk for fall. call light at bedside. on contact isolation for MRSA nares.
--- NOTE | 2018-12-15 21:05 | NUR ---
NOTES: due medication given. repositioned, been sliding down the bed. bilateral wrist restraints intact. peck cath to OSD with yellow urine output. condition observed.
[2018-12-15] MEDS: LORazepam 1 MG TABLET PO SCH (21:45)
--- NOTE | 2018-12-15 22:00 | NUR ---
NOTES: pt. been dozing on and off. noted some occ. bouts of non productive cough. set up suction at bedside.
--- NOTE | 2018-12-15 23:33 | NUR ---
NOTES: awakened for VS. repositioned, release soft wrist restraints but still try to grab and pull out tubings alondra. NGT. HOB fairly elevated because of tube feeding.
--- NOTE | 2018-12-16 00:30 | NUR ---
NOTES: condition guarded. NGT feed continuous. IVF patent. observed contact and reverse isolation.
[2018-12-16] MEDS: METOPROLOL TARTRATE 5 MG/5 ML VIAL IVP SCH ×4 (01:00→19:00)
[2018-12-16] MEDS: IPRATROPIUM BROM 0.5 MG/2.5 ML VIAL.NEB (ATROVENT) INH SCH ×4 (01:58→19:55)
[2018-12-16] MEDS: ALBUTEROL SULFATE 0.083% 2.5 MG/3 ML VIAL.NEB INH SCH ×4 (01:59→19:55)
--- NOTE | 2018-12-16 02:47 | NUR ---
NOTES: pt. restless, able to move in bed. kicks off her cover and O2 taken off from her nose. repositioned. restraints intact.
--- NOTE | 2018-12-16 04:30 | NUR ---
NOTES: pt. repositioned again. HOB elevated. occ. non productive cough noted. observed isolation. bilateral restraints intact.
[2018-12-16] MEDS: MEROPENEM 500 MG in NS 50 ML IV SCH ×3 (05:45→21:43)
--- NOTE | 2018-12-16 05:45 | NUR ---
NOTES: partial am /alla care done , no BM. repositioned, always slides down and moves a lot. IV patent via PICC line on left arm. NGT patent, free water given as scheduled, held for 2 hours, residual 100 cc.
[2018-12-16 06:14] LABS: HEMATOCRIT 27.5 % (36-48); HEMOGLOBIN 9.1 g/dL (12.0-16.0); MEAN CORPUSCULAR HEMOGLOBIN 33 pg (27-31); MEAN CORPUSCULAR HGB CONC 33 % (32-36); MEAN CORPUSCULAR VOLUME 99 fL (79.0-98.0); RED BLOOD CELL COUNT(AUTO) 2.76 MIL/uL (4.2-6.2); RED CELL DISTRIBUTION WIDTH 17.9 % (9.0-15.0)
--- NOTE | 2018-12-16 06:51 | NUR ---
CLOSING NOTES; resume feeding, no available replacement, will wait for kitchen to open. IV patent. peck cath to OSD. pt. remains restless every now and then. on contact isolation for MRSA nares and reverse isolation, bilateral soft wrist restraints intact. for further care and assistance. will endorse to day shift. bed alarm, call light at bedside, frequent rounds and close to nurses station.
[2018-12-16 07:13] LABS: PLATELET COUNT (AUTO) 44 K/uL (130-430)
[2018-12-16 07:17] LABS: ALANINE AMINOTRANSFERASE 22 U/L (12-78); ALBUMIN 1.9 g/dL (3.4-4.8); ANION GAP 6 (5-15); ASPARTATE AMINOTRANSFERASE 18 U/L (10-37); CALCIUM 8.7 mg/dL (8.4-11.0); CHLORIDE 113 mmol/L (98-107); GLUCOSE 128 mg/dL (70-99); POTASSIUM 3.6 mmol/L (3.5-5.1); SODIUM SERUM 152 mmol/L (136-145); TOTAL BILIRUBIN 0.9 mg/dL (0.0-1.0); UREA NITROGEN, BLOOD 53 mg/dL (8-21)
[2018-12-16] MEDS: LEVOTHYROXINE SODIUM 0.05 MG TABLET PO SCH (07:29)
[2018-12-16] MEDS: AMIODARONE HCL 200 MG TABLET PO SCH ×3 (07:31→21:45)
[2018-12-16 08:00] VITALS: BP_SYST 123
--- NOTE | 2018-12-16 08:00 | NUR ---
RN NOTE PATIENT IS RESTING IN BED, OPEN EYES, ON RESTRAINTS. PATIENT WAS ASSESSED, VITAL SIGNS ARE STABLE. FLACC SCALE SHOWED THE PATIENT IS NOT IN PAIN, PATIENT WAS REPOSITIONED, BED AT LOW POSITION AND CALL LIGHT WITHIN REACH, , FEEDING IS ON HOLD, PATIENT WAS GIVEN HER FREE WATER THROUGH THE NG TUBE, WILL PASS MEDICATION BY 0900
[2018-12-16 08:40] LABS: ATYPICAL LYMPHOCYTES % 36 % (0-0); BASOPHILS % (MANUAL) 0 % (0-2); EOSINOPHILS % (MANUAL) 1 % (0-7); LYMPHOCYTES % (MANUAL) 55 % (20-46); MONOCYTES % (MANUAL) 2 % (0-11)
[2018-12-16] MEDS: POTASSIUM CHLORIDE 20 MEQ TAB.PRT.SR PO SCH (09:04)
[2018-12-16] MEDS: ALLOPURINOL 300 MG TABLET (ZYLOPRIM) PO SCH (09:04)
[2018-12-16] MEDS: LOSARTAN POTASSIUM 50 MG TABLET (COZAAR) PO SCH (09:04)
[2018-12-16] MEDS: METOPROLOL SUCCINATE 50 MG TAB.SR.24H (TOPROL XL) PO SCH ×2 (09:04→21:44)
[2018-12-16] MEDS: FUROSEMIDE 20 MG/2 ML VIAL IVP SCH ×2 (09:05→21:46)
[2018-12-16] MEDS: PANTOPRAZOLE SODIUM 40 MG/VIAL (PROTONIX) IVP SCH (09:05)
--- NOTE | 2018-12-16 10:00 | NUR ---
RN NOTE PATIENT WAS REPOSITIONED, PATIENT OPEN EYES NOW AND MORE ALERT, PATIENT WAS GIVEN HER MEDICATIONS. STOMACH RESIDUAL WAS 240 ML. FEEDING IS ON HOLD FOR THE TIME BEING, PATIENT SEEMS TO BE NOT IN PAIN, DAUGHTER CAME TO THE BEDSIDE, WITH HER , PATIENT'S RESTRAINTS WERE RELEASED FOR 10 MIN AND REAPPLIED, WILL CONTINUE TO MONITOR.
[2018-12-16 12:00] VITALS: BP_SYST 147
--- NOTE | 2018-12-16 12:00 | NUR ---
RN NOTE PATIENT IS RESTING IN BED, PATIENT WAS REPOSITIONED, PATIENT MOUTH WAS SUCTIONED AND CLEANED, ORAL CARE WAS DONE. . WILL CONTINUE TO MONITOR.
--- NOTE | 2018-12-16 12:03 | NUR ---
Swallow Eval: called and left message for Anyi. [phone]
[2018-12-16] MEDS: FLUCONAZOLE 100 mg/ NS 50 ML IV SCH (12:16)
--- NOTE | 2018-12-16 14:00 | NUR ---
RN NOTE PATIENT IS RESTING IN BED, SLEEPING, PATIENT WAS REPOSITIONED. WILL CONTINUE TO MONITOR.
[2018-12-16] MEDS: VANCOMYCIN HCL 750 MG in NS 250 ML IV SCH (15:40)
[2018-12-16 15:48] VITALS: BP_SYST 119
--- NOTE | 2018-12-16 16:00 | NUR ---
RN NOTE SPEECH PATHOLOGIST IS HERE TO EVALUATE THE PATIENT FOR SWALLOW EVAL. PATIENT WAS REPOSITIONED, WILL CONTINUE TO MONITOR.
--- NOTE | 2018-12-16 16:37 | NUR ---
S.T. SWALLOW EVAL SWALLOW EVAL COMPLETED. 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 PT IS AT HIGH RISK FOR ASPIRATION, MALNUTRITION, AND DEHYDRATION. REC: CONTINUE NPO - ALTERNATIVE METHOD FOR FEEDING. NURSE NORMA NOTIFIED. G8996 CM G8997 CM G8998 CM NOMS LEVEL 2
--- NOTE | 2018-12-16 18:00 | NUR ---
RN CLOSING NOTE PATIENT IS RESTING IN BED, CALM, PATIENT FLACC SCALE SHOWS THAT SHE IS NOT IN PAIN, PATIENT WAS REPOSITIONED, SWALLOW EVAL IS ON THE NOTES BY THE SPEECH PATHOLOGIST WILL CONTINUE TO MONITOR AND WILL ENDORSE TO NEXT SHIFT.
--- NOTE | 2018-12-16 19:15 | NUR ---
OPENING NOTES Patient asleep, arousable by name. Skin warm and dry. No signs of respiratory distress and discomfort noted. On NG tube with continuous feeding at 45 ml/hr. IVF infusing well, patency noted. With b bilateral wrist restraints in place, no sings of injures noted. SDC's operating well. Oakley catheter in place, draining by gravity. Bed locked and lowest position. Safety precautions in place. Bed alarm on. Call light with in reach. Will continue to monitor patient
--- NOTE | 2018-12-16 19:37 | NUR ---
Tammie Mendoza s/w Mere
[2018-12-16] MEDS: LORazepam 1 MG TABLET PO SCH (21:45)
--- NOTE | 2018-12-16 21:45 | NUR ---
AGITATED Patient tried to get out of bed, trying to pull NG Tube and IV lines. PRN Ativan 0.5 mg/ml given per order. redirect and re oriented patient, patient un cooperative. Bilateral wrist restrains on place. No injury noted. Reposition patient. Safety precautions in place. Will continue to monitor.
--- NOTE | 2018-12-16 21:46 | NUR ---
MED PASS Med pass through NGT, no residual noted up aspirating. Flushed with 50 ml sterile water. Patient tolerated well. No signs of respiratory distress noted. Safety precautions in place. On bilaretal wrist restraints. Will continue to monitor patient.
[2018-12-16] MEDS: D5W 1,000 ML IV SCH (22:04)
[2018-12-17] MEDS: LORazepam 2 MG/ML VIAL IVP PRN ×2 (00:06→04:17)
[2018-12-17 00:20] VITALS: BP_SYST 120
[2018-12-17] MEDS: IPRATROPIUM BROM 0.5 MG/2.5 ML VIAL.NEB (ATROVENT) INH SCH ×4 (00:52→19:30)
[2018-12-17] MEDS: ALBUTEROL SULFATE 0.083% 2.5 MG/3 ML VIAL.NEB INH SCH ×4 (00:52→19:30)
[2018-12-17] MEDS: METOPROLOL TARTRATE 5 MG/5 ML VIAL IVP SCH ×5 (01:08→20:00)
--- NOTE | 2018-12-17 01:57 | NUR ---
LOPRESSOR given HR 106. Patient tolerated well. Will continue to monitor and assess patient.
--- NOTE | 2018-12-17 04:17 | NUR ---
AGITATION Patient agitated, trying to pull out NGT, and trying to get out of bed. PRN ativan 0.5 mg IVP given.v Bilateral wrist restraints in place. No injury noted. Will continue to monitor
--- NOTE | 2018-12-17 04:40 | NUR ---
Swallow Eval Called Called and left a message for Anyi regarding swallow eval, ordered by Dr. Mendoza
--- NOTE | 2018-12-17 05:33 | NUR ---
RN ROUNDS Patient resting in bed, no signs of respiratory distress noted, breathing even and unlobed. NG tube attached and secured. IVF infusing well. Bilateral restraints in place. Safety precautions in place. Will continue to monitor patient
[2018-12-17] MEDS: LEVOTHYROXINE SODIUM 0.05 MG TABLET PO SCH (06:26)
[2018-12-17] MEDS: MEROPENEM 500 MG in NS 50 ML IV SCH ×3 (06:28→23:01)
[2018-12-17] MEDS: AMIODARONE HCL 200 MG TABLET PO SCH ×3 (06:28→23:02)
--- NOTE | 2018-12-17 06:49 | NUR ---
CLOSING NOTES Patient awake AOX1,confused and lying in bed in supine, appears to be trying to get out of the bed, reposition patient, re orient patient with the surrounding. Skin warm and dry. No signs of respiratory distress noted. On NG tube with continuous feeding at 45 ml/hr. IVF's infusing well, patency noted. With bilateral wrist restraints in place, no signs of injures noted. SDC's operating well. Oakley catheter in place, draining by gravity. Bed locked and lowest position. Safety precautions in place. Bed alarm on. Call light with in reach. Will continue to monitor patient until endorsed to oncoming nurse.
[2018-12-17 07:35] VITALS: BP_SYST 113
[2018-12-17 07:40] LABS: BASOPHILS % (AUTO) 0.5 % (0.0-2.0); EOSINOPHILS # (AUTO) 0.1 K/uL (0.0-0.4); EOSINOPHILS % (AUTO) 3.2 % (0.0-4.0); HEMATOCRIT 25.7 % (36-48); HEMOGLOBIN 8.4 g/dL (12.0-16.0); LYMPHOCYTES % (AUTO) 55.4 % (20.5-51.5); MEAN CORPUSCULAR HEMOGLOBIN 33 pg (27-31); MEAN CORPUSCULAR HGB CONC 33 % (32-36); MEAN CORPUSCULAR VOLUME 100 fL (79.0-98.0); MONOCYTES % (AUTO) 1.6 % (1.7-9.3); NEUTROPHILS % (AUTO) 39.3 % (40.0-70.0); RED BLOOD CELL COUNT(AUTO) 2.58 MIL/uL (4.2-6.2); RED CELL DISTRIBUTION WIDTH 18.2 % (9.0-15.0)
--- NOTE | 2018-12-17 07:41 | NUR ---
rn opening note Report was endorsed by night nurse. patient is awake and laying in bed. patient shows no signs of any distress, breathing is equal and non labored. patient has all safety precautions in place. patient is close to nurses station. patient has no other needs at this time.
[2018-12-17 07:43] LABS: ANION GAP 3 (5-15); CALCIUM 8.1 mg/dL (8.4-11.0); CHLORIDE 111 mmol/L (98-107); CREATININE 1.61 mg/dL (0.55-1.30); GLUCOSE 130 mg/dL (70-99); POTASSIUM 3.8 mmol/L (3.5-5.1); SODIUM SERUM 145 mmol/L (136-145); UREA NITROGEN, BLOOD 49 mg/dL (8-21)
[2018-12-17 07:52] LABS: NEUTROPHILS # (AUTO) 0.7 K/uL (1.8-7.7); PLATELET COUNT (AUTO) 38 K/uL (130-430); WHITE BLOOD COUNT (AUTO) 1.8 K/uL (4.8-10.8)
--- NOTE | 2018-12-17 09:30 | NUR ---
Dr. Juventino SOIN states he will be at hospital in 30 minutes to see patient.
[2018-12-17] MEDS: PANTOPRAZOLE SODIUM 40 MG/VIAL (PROTONIX) IVP SCH (09:44)
[2018-12-17] MEDS: FUROSEMIDE 20 MG/2 ML VIAL IVP SCH ×2 (09:44→23:02)
[2018-12-17] MEDS: LOSARTAN POTASSIUM 50 MG TABLET (COZAAR) PO SCH (09:45)
[2018-12-17] MEDS: POTASSIUM CHLORIDE 20 MEQ TAB.PRT.SR PO SCH (09:45)
[2018-12-17] MEDS: ALLOPURINOL 300 MG TABLET (ZYLOPRIM) PO SCH (09:45)
[2018-12-17] MEDS: METOPROLOL SUCCINATE 50 MG TAB.SR.24H (TOPROL XL) PO SCH ×2 (09:46→23:03)
--- NOTE | 2018-12-17 09:55 | NUR ---
medication Patients scheduled medication given per order. Patient is awake but confused. patient shows no signs of distress, breathing is equal and non labored. patient trying to pull on NG tube, educated to not pull but is non complaint. patient has all safety precautions in place. call light is with her, but unable to educate. patient is close to nurses station no other needs at this time. will continue to monitor.
[2018-12-17 11:25] VITALS: BP_SYST 110
--- NOTE | 2018-12-17 12:00 | NUR ---
RN ROUNDING PATIENT IS SITTING IN BED NO SIGNS OF ANY DISTRESS, BREATHING IS EQUAL AND NON LABORED.PATIENT KEEPS MOVING TRYING TO REMOVE g TUBE AND TRYING TO GET LEGS OF BED. PATIENT EDUCATED ON SAFETY BUT IS CONFUSED. PATIENT HAS ALL SAFETY PRECAUTIONS IN PLACE. PATIENT IS CLOSE TO NURSES STATION.
--- NOTE | 2018-12-17 13:00 | NUR ---
patient pulled out NG tube. Patient was in restraints and moved her body down and was able to reach ng tube and remove it. patient is confused. tried to reorient but unable too. patient has all safety precautions in place. Dr. Verma called to see if he would like it place back in. patient shows no signs of any distress, breathing is equal and non labored. no other needs at this time. will continue to monitor.
--- NOTE | 2018-12-17 14:00 | NUR ---
NG tube new NG tube placed, confirmation of placement through auscultation, and withdraw of gastric contents. patient is confused, patient attempted to educated on need for NG tube. patient is still in restraints. Patient has all safety precautions in place. breathing is equal and non labored. Patient is close to nurses station. patient has no other needs at this time. will continue to monitor.
[2018-12-17] MEDS: D5W 1,000 ML IV SCH ×2 (15:00→23:12)
[2018-12-17 15:35] VITALS: BP_SYST 121
--- NOTE | 2018-12-17 16:00 | NUR ---
rn rounding Patient is awake and sitting up in bed patient repositioned but keeps scooting down in bed trying to pull out Ng tube. MD at nurses station called daughter to speak with MD. Patients family spoke with MD. patient has all safety precautions in place. patient has no other needs at this time. will continue to monitor.
--- NOTE | 2018-12-17 16:14 | NUR ---
Discharge Planning/Community Theater Actor Note Went to patient bedside to conduct a Discharge Plan Assessment. No family was at bedside. Dr Verma arrived and stated patient either will need a g tube or hospice care. Patient may require SNF placement, possibly at [facility], near the family home. He would like to speak with patient's daughter, Anastasiia masterson. Norah ABREU called for Dr Verma, but there was no answer. She left a voicemail. Will remain available and follow up tomorrow after Dr Verma has a chance to speak with the family.
--- NOTE | 2018-12-17 17:37 | NUR ---
CONSULT GI DYSPHAGIA DR UNGER [phone] S/W YAMILET LINTON
--- NOTE | 2018-12-17 18:50 | NUR ---
RN CLOSING NOTE PATIENT IS AWAKE AND ALERT , EYES ARE OPEN TO SIGNS OF ANY DISTRESS, BREATHING IS EQUAL AND NON LABORED. PATIENT SHOWS NO SIGNS OF ANY DISTRESS, BREATHING IS EQUAL AND NON LABORED. PATIENT HAS ALL SAFETY PRECAUTIONS IN PLACE. CLOSE TO NURSES STATION. NO OTHER NEEDS AT THIS TIME.
[2018-12-17 20:00] VITALS: BP_SYST 110
--- NOTE | 2018-12-17 21:00 | NUR ---
Pt is moving around in bed with bilateral wrist restraints on. No circulatory impairment noted. IVF is infusing well in TONY. Fall and safety precautions are in place.
--- NOTE | 2018-12-17 23:00 | NUR ---
Pt is resting quietly in bed. No acute distress noted. Pt is tolerating NGT feeding well. HOB is elevated 45 degrees to prevent aspiration. IVF is infusing well in TONY. Fall and safety precautions are in place.
[2018-12-18 00:20] VITALS: BP_SYST 142
[2018-12-18] MEDS: METOPROLOL TARTRATE 5 MG/5 ML VIAL IVP SCH ×4 (00:44→19:00)
[2018-12-18] MEDS: ALBUTEROL SULFATE 0.083% 2.5 MG/3 ML VIAL.NEB INH SCH ×4 (00:55→20:11)
[2018-12-18] MEDS: IPRATROPIUM BROM 0.5 MG/2.5 ML VIAL.NEB (ATROVENT) INH SCH ×4 (00:55→20:12)
--- NOTE | 2018-12-18 01:00 | NUR ---
Pt is sleeping comfortably in bed and tolerating NGT feeding well. IVF is infusing well in TONY. Fall and safety precautions are in place.
--- NOTE | 2018-12-18 03:00 | NUR ---
No acute distress noted at this time. Pt is tolerating NG Tube feeding well. Fall and safety precautions are in place.
--- NOTE | 2018-12-18 05:00 | NUR ---
Pt is awake and resting in bed without any distress noted. NGT Feeding is in progress. IVF is infusing well in LFA.
[2018-12-18] MEDS: MEROPENEM 500 MG in NS 50 ML IV SCH (06:13)
[2018-12-18] MEDS: LEVOTHYROXINE SODIUM 0.05 MG TABLET PO SCH (06:14)
[2018-12-18] MEDS: AMIODARONE HCL 200 MG TABLET PO SCH ×3 (06:17→23:32)
--- NOTE | 2018-12-18 06:30 | NUR ---
Pt is awake and resting in bed without any distress noted. Pt remains restless and confused, moving around her bed. Bilateral wrist restraints are on and no circulatory impairment noted. All pt's needs were attended to. Will endorse to day shift nurse.
--- NOTE | 2018-12-18 07:20 | NUR ---
received patient report at the bedside. patient confused. has bilateral wrist restraints. has picc line on the left upper arm. 2 lumen. has right nare nasogastric tube. with vital af 1.2 at 45cc/hr infusing on well. no residual noted. lungs bilaterally with crackles. non productive cough noted. has bilateral scds in placed. hourly rounding needed. bed low position, alarmed and locked. call lights within reach. o
[2018-12-18 08:15] VITALS: BP_SYST 101
--- NOTE | 2018-12-18 09:40 | NUR ---
pulled out the peck catheter and very agitated.
[2018-12-18] MEDS: LORazepam 2 MG/ML VIAL IVP PRN ×2 (09:55→18:22)
[2018-12-18] MEDS: FUROSEMIDE 20 MG/2 ML VIAL IVP SCH ×2 (09:55→23:31)
--- NOTE | 2018-12-18 09:55 | NUR ---
ativan 0.5 mg iv given. made comfortable.
[2018-12-18] MEDS: METOPROLOL SUCCINATE 50 MG TAB.SR.24H (TOPROL XL) PO SCH ×2 (09:58→23:33)
[2018-12-18] MEDS: ALLOPURINOL 300 MG TABLET (ZYLOPRIM) PO SCH (09:59)
[2018-12-18] MEDS: POTASSIUM CHLORIDE 20 MEQ TAB.PRT.SR PO SCH (09:59)
[2018-12-18] MEDS: LOSARTAN POTASSIUM 50 MG TABLET (COZAAR) PO SCH (09:59)
[2018-12-18] MEDS: PANTOPRAZOLE SODIUM 40 MG/VIAL (PROTONIX) IVP SCH (09:59)
--- NOTE | 2018-12-18 11:00 | NUR ---
peck catheter inserted #[id number]. in aseptic technique.
--- NOTE | 2018-12-18 12:00 | NUR ---
turn to sides. made comfortable.
[2018-12-18 12:25] VITALS: BP_SYST 134
--- NOTE | 2018-12-18 14:00 | NUR ---
patient family friend toby and see the patient.
--- NOTE | 2018-12-18 16:00 | NUR ---
pt still bilateral wrist restraints. continue to monitor
--- NOTE | 2018-12-18 16:21 | NUR ---
dr monaco came regarding patients status.
[2018-12-18 16:30] VITALS: BP_SYST 129
--- NOTE | 2018-12-18 16:55 | NUR ---
Nutrition F/U RD reviewed pt's current EMR including diet Hx, physician notes, nursing notes, pertinent labs/meds/procedures, care trends, and care activity. Current diet order: Vital AF 1.2 at 45 ml/hr, Free Water Flush: 200 ml Q4H via NGT x3 days PMH: HTN, hypothyroidism, ALOC, DJD, Alzheimers Dz, dementia per physician's notes. Since admission, pt also found w/ sepsis, STEPHANY, malnutrition, cardiomyopathy, acute systolic CHF, acute metabolic encephalopathy, pneumonia, pulmonary edema, leukemia, ARF, severe malnutrition, dysphagia, STEPHANY per physician's notes. Subjective Information: Pt was seen sleeping with TF Vital AF 1.2 running at 45 mL/hr w/ 24 mL infused via NGT. Pt bed scale wt 138 #. RN reported pt is tolerating well, 0 residual, and no longer intubated/ vent support. RN also reported pt at times, pulls out NGT r/t confusion. Pt had a swallow evaluation on 12/16/18, speech therapist recommended to continue NPO, alternative methods of feeding. Frankie scale 14, pale skin and old scars per EMR and RN. Current TF is no longer appropriate d/t pt no longer on vent support; pt may benefit instead from Jevity 1.5 TF formula for optimal nutrition. UPDATED: Estimated Energy Expenditure (kcals/day) 9964-6220 kcal/day (30-35 kcal/kg CBW for sepsis) Estimated Protein Required (g/day) 89-118 gm/day (1.5-2 gm/kg CBW for sepsis) Estimated Fluid Required (l/day) Defer to MD d/t CHF Problem/Etiology/Signs/Symptoms Increased nutritional needs related to metabolic condition as evidenced by estimated nutritional needs for sepsis. *ongoing* Expected Outcomes/Goals - Monitor TF tolerance w/ goals of pt meeting greater than 100% of estimated nutritional needs, labs trending WML, and skin integrity/wt maintenance. Dietitian Recommendations * Recommend Jevity 1.5 at 60 ml/hr, Free Water Flush: per physician d/t CHF via NGT or GT if/when medically appropriate Provides: 2160 kcal/day, 92 gm of protein/day, 1094 ml free water/day. Meets: 105% of upper estimated caloric needs and 103% of lower end estimated protein needs. Follow Up High Risk: F/U in 2-3 days Signed: 12/18/18 at 1656 by Yuliya DE LA CRUZ <Co-Signature Required> Co-Signed: 12/18/18 at [address]
[2018-12-18] MEDS: LEVOFLOXACIN 250 MG/D5W 50 ML IV SCH (16:58)
[2018-12-18] MEDS: metroNIDAZOLE 250 mg/NS 50 ML IV SCH ×2 (16:59→23:33)
--- NOTE | 2018-12-18 16:59 | NUR ---
Dietitian Recommendations * Recommend Jevity 1.5 at 60 ml/hr, Free Water Flush: per physician d/t CHF via NGT or GT if/when medically appropriate Provides: 2160 kcal/day, 92 gm of protein/day, 1094 ml free water/day. Meets: 105% of upper estimated caloric needs and 103% of lower end estimated protein needs. LP, RD Please refer to Nutrition F/U for details. Signed: 12/18/18 at 1700 by Yuliya DE LA CRUZ <Co-Signature Required> Co-Signed: 12/18/18 at [address]
--- NOTE | 2018-12-18 18:00 | NUR ---
called the daughter but nobody answering.
--- NOTE | 2018-12-18 18:12 | NUR ---
DR UNGER. CAME MADE ORDERS. FOR GASTROSTOMY TUBE PLACEMENT, IF LAB WORKS ARE OKAY PER DR UNGER
--- NOTE | 2018-12-18 18:22 | NUR ---
ativan iv given via picc line and flush 10cc normal saline.
--- NOTE | 2018-12-18 18:25 | NUR ---
picc line dressing changed at this time.
--- NOTE | 2018-12-18 18:26 | NUR ---
dr jimenes came and see the patient.
--- NOTE | 2018-12-18 18:42 | NUR ---
consent signed for peg tube placement by Dr Cook tomorrow.
--- NOTE | 2018-12-18 19:20 | NUR ---
endorsed to incoming nurse Veronica ABREU
[2018-12-18 20:00] VITALS: BP_SYST 125
--- NOTE | 2018-12-18 20:01 | NUR ---
Opening Notes: Pt is sitting up in bed with her eyes closed. Pt is non-verbal. IVF of D5W is infusing well via TONY PICC at 30ml/hr. PICC dressing is dry and intact. NGT Feeding of Vital AF 1.2 is infusing well at 45ml/hr with 0ml residual. NGT also checked for placement. Bilateral soft wrist restraints are on and no circulatory impairment noted. Oakley cath to gravity drainage is draining yellowish urine. Fall, Contact/Reverse Isolation and safety precautions are in place.
--- NOTE | 2018-12-18 22:00 | NUR ---
Patient remains confused and disoriented. Patient was trying to remove Oakley catheter and NG tube. Patient is on bilateral soft restraints, no circulatory impairment noted. Patient is tolerating NG tube feeding well. IV fluid is infusing well in [facility] PICC. Fall and safety precautions are in place.
--- NOTE | 2018-12-19 | NUR ---
Stopped NG tube feeding and flushed NGT with 200ml sterile water. Patient is having PEG placement tomorrow. IV fluid is infusing well in [facility] PICC. Fall and safety precautions are in place.
[2018-12-19] MEDS: METOPROLOL TARTRATE 5 MG/5 ML VIAL IVP SCH ×4 (00:43→18:24)
[2018-12-19] MEDS: ALBUTEROL SULFATE 0.083% 2.5 MG/3 ML VIAL.NEB INH SCH ×4 (01:00→20:15)
[2018-12-19] MEDS: IPRATROPIUM BROM 0.5 MG/2.5 ML VIAL.NEB (ATROVENT) INH SCH ×4 (01:01→20:15)
--- NOTE | 2018-12-19 02:18 | NUR ---
Patient is sleeping comfortably. No signs of distress noted. Patient is on bilateral soft restraints, no circulatory impairment noted. Fall and safety precautions are in place. Bed is in the lowest and locked positions.
[2018-12-19] MEDS: AMIODARONE HCL 200 MG TABLET PO SCH ×3 (06:00→22:15)
[2018-12-19] MEDS: metroNIDAZOLE 250 mg/NS 50 ML IV SCH ×3 (06:02→22:15)
[2018-12-19] MEDS: LEVOTHYROXINE SODIUM 0.05 MG TABLET PO SCH (06:06)
--- NOTE | 2018-12-19 06:41 | NUR ---
Pt is awake and resting in bed without any distress noted. Pt remains restless and confused, moving around in her bed. Bilateral soft wrist restraints are on and no circulatory impairment noted. All pt's needs were attended to. Will endorse to day shift nurse.
[2018-12-19 07:41] LABS: HEMATOCRIT 22.6 % (36-48); HEMOGLOBIN 7.6 g/dL (12.0-16.0); MEAN CORPUSCULAR HEMOGLOBIN 33 pg (27-31); MEAN CORPUSCULAR HGB CONC 34 % (32-36); MEAN CORPUSCULAR VOLUME 98 fL (79.0-98.0); RED CELL DISTRIBUTION WIDTH 18.2 % (9.0-15.0)
[2018-12-19] MEDS ORDERED: MIDAZOLAM HCL 5 MG/5 ML VIAL ONE (07:52)
[2018-12-19] MEDS ORDERED: MEPERIDINE HCL/PF 25 MG/ML DISP.SYRIN ONE ×2 (07:52)
[2018-12-19 07:54] LABS: WHITE BLOOD COUNT (AUTO) 1.8 K/uL (4.8-10.8)
[2018-12-19 07:55] LABS: PLATELET COUNT (AUTO) 37 K/uL (130-430)
--- NOTE | 2018-12-19 08:03 | NUR ---
INITIAL NOTE: PT IS AWAKE IN BED. CONFUSED, AAO X1, ANSWERS TO NAME. SON IS AT BEDSIDE. PT ON BILATERAL SOFT WRIST RESTRAINTS, SKIN AND PULSE CHECKED. PT CURRENTLY RECEIVING BREATHING TX. PT TO GO TO GI LAB TODAY FOR PEG PLACEMENT. THRASHER IN PLACE DRAINING CLEAR YELLOW URINE. WILL CONTINUE PLAN OF CARE.
[2018-12-19 08:05] LABS: INR 1.3 (0.8-1.2); PROTHROMBIN TIME 12.5 SECS (9.5-12.5)
[2018-12-19 08:08] VITALS: BP_SYST 105
[2018-12-19] MEDS: PANTOPRAZOLE SODIUM 40 MG/VIAL (PROTONIX) IVP SCH (08:20)
[2018-12-19] MEDS ORDERED: VANCOMYCIN HCL 1 GM/NS PREMIX 250 ML IV PRN (09:00)
[2018-12-19] MEDS: ALLOPURINOL 300 MG TABLET (ZYLOPRIM) PO SCH (09:00)
[2018-12-19] MEDS: POTASSIUM CHLORIDE 20 MEQ TAB.PRT.SR PO SCH (09:00)
[2018-12-19] MEDS: LOSARTAN POTASSIUM 50 MG TABLET (COZAAR) PO SCH (09:00)
[2018-12-19] MEDS: METOPROLOL SUCCINATE 50 MG TAB.SR.24H (TOPROL XL) PO SCH ×2 (09:00→22:14)
--- NOTE | 2018-12-19 09:37 | NUR ---
PT IN BED, ASLEEP, BREATHING EVEN AND UNLABORED. NO S/S OF DISTRESS. IV ABX AND IV FLUIDS INFUSING WELL. BILAT WRIST RESTRAINS ON. SAFETY PRECAUTION ON.
[2018-12-19] MEDS: LEVOFLOXACIN 250 MG/D5W 50 ML IV SCH (10:22)
[2018-12-19 10:32] LABS: ATYPICAL LYMPHOCYTES % 23 % (0-0); BAND % (MANUAL) 0 % (0-6); BASOPHILS % (MANUAL) 0 % (0-2); EOSINOPHILS % (MANUAL) 0 % (0-7); LYMPHOCYTES % (MANUAL) 60 % (20-46); MONOCYTES % (MANUAL) 9 % (0-11)
[2018-12-19 13:04] VITALS: BP_SYST 126
[2018-12-19] MEDS: FUROSEMIDE 20 MG/2 ML VIAL IVP SCH ×2 (13:47→22:14)
[2018-12-19] MEDS: LORazepam 2 MG/ML VIAL IVP PRN (13:48)
--- NOTE | 2018-12-19 14:17 | NUR ---
ROUNDS: PT IS AWAKE IN BED. FAMILY IS AT BEDSIDE. PAGED DR. UNGER REGARDING CONTINUATION OF DIET DUE TO PEG PLACEMENT BEING CANCELLED TODAY, AWAITING MD TO CALL BACK. WILL CONTINUE TO MONITOR PT.
--- NOTE | 2018-12-19 14:23 | NUR ---
CALLED BACK: DR. UNGER CALLED BACK. HE SAID TO RESUME DIET. HE SAID NO NEED FOR ANOTHER SWALLOW EVAL, HE WILL FOLLOW UP WITH DR. ROSEN FOR THE PLAN WITH PATIENT.
[2018-12-19 15:24] VITALS: BP_SYST 134
--- NOTE | 2018-12-19 15:30 | NUR ---
DR UNGER GAVE ORDER TO CONTINUE G-TUBE FEEDING AND MD SAID NO NEED TO DO ANOTHER SWALLOW EVAL. PT'S DAUGHTER AND POOscar BANERJEE TALED TO DR UNGER. SHE INFORMED ME AND RN STEPHANIE, THAT SHE HAS DECIDED TO GO AHEAD WITH THE G-TUBE PLACEMENT SO SHE CAN TAKE PT HOME. WILL INFORM DR UNGER.
--- NOTE | 2018-12-19 15:33 | NUR ---
RN NOTE: TUBE FEEDING STARTED, VITAL AF 1.2 AT 45CC/HR, PT TOLERATING WELL.
[2018-12-19 18:24] VITALS: BP_SYST 126
[2018-12-19] MEDS: D5W 1,000 ML IV SCH (18:30)
--- NOTE | 2018-12-19 18:30 | NUR ---
END OF SHIFT NOTE: PT REMAINED STABLE DURING SHIFT WITH NO MAJOR CHANGE IN CONDITION. NO PAIN NOTED AT THIS TIME. BILATERAL SOFT WRIST RESTRAINTS RELEASED TO ASSESS PULE AND SKIN INTEGRITY. TUBE FEEDING RESUMED, PT TOLERATING. NEUTROPENIC AND CONTACT PRECAUTIONS IN PLACE. BED ALARM ON. WILL ENDORSE CONTINUUM OF CARE TO TELEPHONE SALES REPRESENTATIVE NURSE.
--- NOTE | 2018-12-19 19:03 | NUR ---
DR ROSEN HERE AND MADE AWARE THAT PT'S DAUGHTER WANTED TO GO ON WITH THE PEG PLACEMENT. SAID HE IS GOING TO CALL DR UNGER.
--- NOTE | 2018-12-19 19:30 | NUR ---
OPENING NOTES Pt and endorsement received from day shift nurse. Pt is resting in bed with both eyes closed, with visible chest rise and fall with non-labored breathing noted. Pt on IVF with D5W at 30ml/hr and infusing well on left upper arm PICC. Pt on tube feeding of Vital AF 1.2 at 45ml/hr and infusing well. Pt on peck catheter with yellow urine noted in the bag and hanged below bladder level. Pt on soft wrist restraints with no signs of injury on both wrists. No moaning or grimacing noted. No signs of acute distress or SOB noted. Safety precautions in place with 3 side rails up, wheels locked, bed alarm on and in lowest level. Call light with pt. Will continue to monitor.
[2018-12-19 22:00] VITALS: BP_SYST 119
--- NOTE | 2018-12-19 22:15 | NUR ---
MED PASS Pt is awake, restless and moving around the bed. Oriented pt to reality, place, and time. Assessed for bowel sounds and is active upon auscultation. Residual is about 20ml of yellow feeding. All due meds given and pt tolerated well. No complains of pain and no signs of acute distress noted. IVF infusing well. Safety precautions in place and call light with pt. Will continue to monitor.
[2018-12-20] VITALS (7 sets, daily range): BP systolic 100–144
--- NOTE | 2018-12-20 00:01 | NUR ---
ROUNDS Pt is awake, restless and trying to get out of bed. Constantly reorienting pt to reality. Stopped tube feeding. IVF infusing well. No complains of pain and no signs of acute distress noted. Restrains and safety precautions in place. Will continue to monitor.
[2018-12-20] MEDS: METOPROLOL TARTRATE 5 MG/5 ML VIAL IVP SCH ×5 (00:19→18:09)
[2018-12-20] MEDS: IPRATROPIUM BROM 0.5 MG/2.5 ML VIAL.NEB (ATROVENT) INH SCH ×4 (01:50→20:11)
[2018-12-20] MEDS: ALBUTEROL SULFATE 0.083% 2.5 MG/3 ML VIAL.NEB INH SCH ×4 (01:50→20:10)
[2018-12-20] MEDS: LORazepam 2 MG/ML VIAL IVP PRN (02:02)
--- NOTE | 2018-12-20 02:02 | NUR ---
ATIVAN Pt is still awake, restless in bed and keeps trying to get off the bed and removing restraints. Ativan 0.5mg IVP given as ordered. No signs of acute distress and no complains of pain. IVF infusing well. Restraints in place without signs of injury on both wrists. Safety precautions in place and call light with pt. Will continue to monitor.
--- NOTE | 2018-12-20 04:50 | NUR ---
BT INITIATION: Consent signed agreeing to administration of blood. Blood has been type and crossmatched. Blood sent from blood bank. Information on unit of blood checked against patient wristband at bedside by two nurses. All information matches. Patient or responsible libertarian informed of potential complications associated with blood transfusion. Informed of possible transfusion reaction symptoms. Aware of need to notify nurse at once of itching, shortness of breath, flushing, feeling of impending doom, or other symptoms not previously present. Vital signs taken within 5 minutes prior to initiation of transfusion. RN will remain with patient for first 15 minutes of transfusion at which time vital signs will be re-assessed.
--- NOTE | 2018-12-20 05:05 | NUR ---
15MINS AFTER STARTING TRANSFUSION Pt tolerating blood transfusion after 15min of starting transfusion. No signs of any acute distress or SOB noted and no complains of itching. Pt is resting in bed with both eyes closed, with visible chest rise and fall with non-labored breathing noted. Pt is easily arousable. Vital signs taken and recorded. Will continue to monitor.
[2018-12-20] MEDS: metroNIDAZOLE 250 mg/NS 50 ML IV SCH ×2 (05:06→14:10)
[2018-12-20] MEDS: AMIODARONE HCL 200 MG TABLET PO SCH ×3 (05:55→23:11)
[2018-12-20] MEDS: LEVOTHYROXINE SODIUM 0.05 MG TABLET PO SCH (06:00)
--- NOTE | 2018-12-20 07:05 | NUR ---
CLOSING NOTES Blood transfusion finished, vital signs taken and recorded. Pt is awake and restless in bed. No complains of pain and no signs of acute distress or SOB noted. IVF infusing well. All needs attended throughout the shift. Restraints in place with no signs of injury on both wrists. Safety precautions in place with 3 side rails up, wheels locked, bed alarm on and in lowest level. Call light with pt. Will endorse to day shift nurse.
--- NOTE | 2018-12-20 07:30 | NUR ---
INITIAL NOTE BEDSIDE SBAR REPORT RECEIVED BY AIR ANALYSIS ENGINEERING TECHNICIAN RN. PT RESTING IN BED. NO ACUTE DISTRESS NOTED, BREATHING EVEN AND UNLABORED. IVF INFUSING WELL. THRASHER CATHETER DRAINING TO GRAVITY. CALL LIGHT WITHIN REACH, BED IN LOW AND LOCKED POSITION. PT NPO. ISOLATION PRECAUTIONS IN PLACE.
[2018-12-20 07:44] LABS: ANION GAP 6 (5-15); CHLORIDE 107 mmol/L (98-107); CREATININE 1.86 mg/dL (0.55-1.30); GLUCOSE 123 mg/dL (70-99); POTASSIUM 4.1 mmol/L (3.5-5.1); SODIUM SERUM 141 mmol/L (136-145); UREA NITROGEN, BLOOD 44 mg/dL (8-21)
[2018-12-20 07:48] LABS: HEMOGLOBIN 7.3 g/dL (12.0-16.0); MEAN CORPUSCULAR HEMOGLOBIN 33 pg (27-31); MEAN CORPUSCULAR HGB CONC 33 % (32-36); MEAN CORPUSCULAR VOLUME 100 fL (79.0-98.0); PLATELET COUNT (AUTO) 73 K/uL (130-430); WHITE BLOOD COUNT (AUTO) 2.6 K/uL (4.8-10.8)
[2018-12-20] MEDS ORDERED: MEPERIDINE HCL/PF 25 MG/ML DISP.SYRIN ONE ×2 (07:50)
[2018-12-20] MEDS: LEVOFLOXACIN 250 MG/D5W 50 ML IV SCH (08:39)
[2018-12-20] MEDS: FUROSEMIDE 20 MG/2 ML VIAL IVP SCH ×2 (08:40→23:13)
[2018-12-20] MEDS: PANTOPRAZOLE SODIUM 40 MG/VIAL (PROTONIX) IVP SCH (08:40)
[2018-12-20] MEDS: ALLOPURINOL 300 MG TABLET (ZYLOPRIM) PO SCH (09:00)
[2018-12-20] MEDS: METOPROLOL SUCCINATE 50 MG TAB.SR.24H (TOPROL XL) PO SCH ×2 (09:00→23:12)
[2018-12-20] MEDS: LOSARTAN POTASSIUM 50 MG TABLET (COZAAR) PO SCH (09:00)
[2018-12-20] MEDS: POTASSIUM CHLORIDE 20 MEQ TAB.PRT.SR PO SCH (09:00)
--- NOTE | 2018-12-20 09:01 | NUR ---
LEFT TO GI PT ACCOMPANIED BY GI NURSES, SALINE LOCKED. NO ACUTE DISTRESS NOTED.
[2018-12-20] MEDS: MEPERIDINE HCL/PF 25 MG/ML DISP.SYRIN ONE ×2 (09:04→09:08)
[2018-12-20] MEDS: MIDAZOLAM HCL 5 MG/5 ML VIAL ONE ×3 (09:04→09:11)
--- NOTE | 2018-12-20 10:05 | NUR ---
RETURN FROM GI PT RESTING, NO ACUTE DISTRESS NOTED. G-TUBE IN PLACE, NO DRAINAGE, ABDOMINAL BINDER IN PLACE. REPOSITIONED PT FOR COMFORT. PT TO REMAIN NPO.
--- NOTE | 2018-12-20 10:16 | NUR ---
SPOKE W/ DR. WELLS UPDATED PT ON G-TUBE PLACEMENT DONE, PT RESTING, NO ACUTE DISTRESS NOTED.
--- NOTE | 2018-12-20 12:00 | NUR ---
RN ROUNDS PT INCONTINENT OF BOWEL, CHANGED PATIENT AND LINEN. PT TOLERATED WELL. FAMILY AT BEDSIDE.
--- NOTE | 2018-12-20 13:58 | NUR ---
Dc Planning: Phoned pt's dtr/Anastasiia to discuss the plan to discharge pt home with hh vs. snf vs. hospice care. The ptatient is sp PEG placement today. Per Anastasiia, she spoke with dr. Verma and decided to take the pt home with home health. Herself and other family member will take turn taking care of the pt. Anastasiia is looking forward to learn on how to do the feeding via GT. She stated " we want to keep her at home and take care of her until God permits." -- Cm will update the discharge progress to her, once received the dc order and has HH arrangement setup.
--- NOTE | 2018-12-20 14:00 | NUR ---
RN ROUNDS REPOSITIONED PATIENT. NO ACUTE DISTRESS NOTED. WILL CONTINUE TO MONITOR.
[2018-12-20 14:31] LABS: ATYPICAL LYMPHOCYTES % 20 % (0-0); BASOPHILS % (MANUAL) 0 % (0-2); EOSINOPHILS % (MANUAL) 2 % (0-7); LYMPHOCYTES % (MANUAL) 60 % (20-46); MONOCYTES % (MANUAL) 10 % (0-11)
--- NOTE | 2018-12-20 16:00 | NUR ---
RN ROUNDS PT RESTING, NO ACUTE DISTRESS NOTED, BREATHING EVEN AND UNLABORED.
[2018-12-20] MEDS: D5W 1,000 ML IV SCH (16:01)
--- NOTE | 2018-12-20 18:00 | NUR ---
RN ROUNDS PT RESTING AT BEDSIDE. NO ACUTE DISTRESS NOTED. BREATHING EVEN AND UNLABORED. DAUGHTER AT BEDSIDE. LEFT MOUTH SWAB FOR PT. FAMILY WOULD LIKE TO DO ORAL CARE.
--- NOTE | 2018-12-20 19:00 | NUR ---
CLOSING NOTE BEDSIDE SBAR REPORT GIVEN TO MANUFACTURING PROJECT ENGINEER RNMAURO. REPOSITIONED PT, NO ACUTE DISTRESS NOTED, PT TOLERATED WELL. IVF INFUSING WELL, THRASHER DRAINING TO GRAVITY. ISOLATION PRECAUTIONS IN PLACE. CALL LIGHT WITHIN REACH, BED IN LOW LOCKED POSITION WITH SOFT RESTRAINTS IN PLACE. PT CARE ENDORSED TO MANUFACTURING PROJECT ENGINEER.
--- NOTE | 2018-12-20 19:30 | NUR ---
OPENING NOTES Patient is resting, no signs of acute respiratory distress or pain. IVF running. G tube in place. Gtube feeding to being at 2200. Oakley catheter intact, draining by gravity, lance, urine noted. SCD's on. Call light within reach, bed alarm on, bed at lowest position. Restraints in place. Will continue to monitor.
--- NOTE | 2018-12-20 19:45 | NUR ---
DR. ROSEN MADE ROUNDS, NO CHANGE OF ORDERS. IN REGARDS TO PLATELETS HAVING TO BE IRRADIATED, DR. ROSEN STATES TO TALK TO SENIOR IT PROJECT MANAGER.
[2018-12-21 00:06] VITALS: BP_SYST 137
--- NOTE | 2018-12-21 00:15 | NUR ---
Patient is resting, eyes closed, still restless and holding onto tubes, but not pulling. Reorienting patient to room and time. Will continue to monitor.
[2018-12-21] MEDS: IPRATROPIUM BROM 0.5 MG/2.5 ML VIAL.NEB (ATROVENT) INH SCH ×4 (01:17→19:55)
[2018-12-21] MEDS: ALBUTEROL SULFATE 0.083% 2.5 MG/3 ML VIAL.NEB INH SCH ×4 (01:18→19:57)
[2018-12-21] MEDS: METOPROLOL TARTRATE 5 MG/5 ML VIAL IVP SCH ×4 (02:01→18:44)
--- NOTE | 2018-12-21 02:14 | NUR ---
Patient is still agitated, Tylenol provided, restraints in place. IVF running, dressings c/d/i. Will continue to monitor.
[2018-12-21] MEDS: ACETAMINOPHEN 325 MG TABLET PO PRN (02:55)
--- NOTE | 2018-12-21 04:12 | NUR ---
Patient is resting, eyes closed. Restraints in place, released for 10 min. No signs of distress observed. Will continue to monitor.
[2018-12-21] MEDS: LEVOTHYROXINE SODIUM 0.05 MG TABLET PO SCH (06:43)
[2018-12-21] MEDS: AMIODARONE HCL 200 MG TABLET PO SCH ×3 (06:46→22:07)
[2018-12-21 07:13] LABS: MEAN CORPUSCULAR HEMOGLOBIN 33 pg (27-31); MEAN CORPUSCULAR HGB CONC 34 % (32-36); MEAN CORPUSCULAR VOLUME 98 fL (79.0-98.0); RED BLOOD CELL COUNT(AUTO) 2.05 MIL/uL (4.2-6.2); RED CELL DISTRIBUTION WIDTH 17.4 % (9.0-15.0); WHITE BLOOD COUNT (AUTO) 2.1 K/uL (4.8-10.8)
--- NOTE | 2018-12-21 07:30 | NUR ---
INITIAL NOTE PT RESTING IN BED, NO ACUTE DISTRESS NOTED, BREATHING EVEN AND UNLABORED. IVF INFUSING WELL. THRASHER CATHETER DRAINING TO GRAVITY. CALL LIGHT WITHIN REACH, BED IN LOW AND LOCKED POSITION WITH BED ALARM ON. ISOLATION PRECAUTIONS IN PLACE.
--- NOTE | 2018-12-21 07:30 | NUR ---
CLOSING NOTES Patient received resting, alert, confused, HOB elevated. G-tube intact and in place, Patient tolerating well, advancing to 50 cc/hr. Abdominal binder in place. Oakley catheter draining by gravity, no kinks or loops noted, clear yellow urine noted. IVF infusing well. Bed alarm on, bed at lowest position. Call light within the reach. Will endorse care to oncoming shift.
[2018-12-21 07:32] LABS: ANION GAP 8 (5-15); CHLORIDE 104 mmol/L (98-107); CREATININE 2.19 mg/dL (0.55-1.30); GLUCOSE 123 mg/dL (70-99); POTASSIUM 3.5 mmol/L (3.5-5.1); SODIUM SERUM 138 mmol/L (136-145); UREA NITROGEN, BLOOD 52 mg/dL (8-21)
[2018-12-21 07:37] LABS: HEMOGLOBIN 6.7 g/dL (12.0-16.0)
--- NOTE | 2018-12-21 07:37 | NUR ---
CRITICAL LAB DR. ROSEN PAGED, AWAITING RETURN CALL.
--- NOTE | 2018-12-21 07:41 | NUR ---
PAGED PAGED VICTORINA ROWLEY AT [phone] SPOKE WITH OLIVIA.
[2018-12-21 08:00] VITALS: BP_SYST 142
--- NOTE | 2018-12-21 08:07 | NUR ---
SPOKE W/ DR. ROSEN INFORMED MD OF CRITICAL LAB RESULT HGB 6.7, HCT 20. MD ORDERED TO PAGE DR. WELLS. VERIFIED WITH READ BACK.
--- NOTE | 2018-12-21 08:10 | NUR ---
PAGED PAGED ALONSO ABARCA AT [phone] SPOKE WITH OG.
--- NOTE | 2018-12-21 09:24 | NUR ---
DR. UTE SONI AT BEDSIDE EXAMINING PT. UPDATED MD ON LOW HGB 6.7 AND HCT 20. NEW ORDERS RECEIVED FOR 1 UNIT OF PRBC, VERIFIED WITH READ BACK.
[2018-12-21] MEDS: LEVOFLOXACIN 250 MG/D5W 50 ML IV SCH (10:05)
[2018-12-21] MEDS: PANTOPRAZOLE SODIUM 40 MG/VIAL (PROTONIX) IVP SCH (10:05)
[2018-12-21] MEDS: FUROSEMIDE 20 MG/2 ML VIAL IVP SCH ×2 (10:06→22:09)
[2018-12-21] MEDS: POTASSIUM CHLORIDE 20 MEQ TAB.PRT.SR PO SCH (10:08)
[2018-12-21] MEDS: ALLOPURINOL 300 MG TABLET (ZYLOPRIM) PO SCH (10:08)
[2018-12-21] MEDS: METOPROLOL SUCCINATE 50 MG TAB.SR.24H (TOPROL XL) PO SCH ×2 (10:08→21:00)
[2018-12-21] MEDS: LOSARTAN POTASSIUM 50 MG TABLET (COZAAR) PO SCH (10:09)
[2018-12-21 11:20] VITALS: BP_SYST 142
--- NOTE | 2018-12-21 11:30 | NUR ---
RN ROUNDS PT INCONTINENT OF BOWEL, PT CLEANED AND CHANGED. REPOSITIONED FOR COMFORT.
--- NOTE | 2018-12-21 11:53 | NUR ---
Dc Planning: Conference meeting with daughters: Anastasiia at bedside and Zelda via speaker phone about dcp decision. Per Anastasiia, she is considering pt be on hospice care base on pt's medical prognosis and conversation with dr. Verma. They requested [facility] hospice care. CM notified Dr Verma and asking for the hospice eval order. CM will contact [facility] for medical screening per dtrs request.
[2018-12-21 12:21] LABS: LYMPHOCYTES % (MANUAL) 58 % (20-46); PLATELET COUNT (AUTO) 67 K/uL (130-430)
[2018-12-21 12:22] LABS: ATYPICAL LYMPHOCYTES % 20 % (0-0); BAND % (MANUAL) 2 % (0-6)
[2018-12-21 12:26] LABS: BASOPHILS % (MANUAL) 0 % (0-2); EOSINOPHILS % (MANUAL) 2 % (0-7); METAMYELOCYTES % 1 % (0-0); MONOCYTES % (MANUAL) 8 % (0-11)
[2018-12-21 12:27] LABS: BLASTS, MANUAL % 1 % (0-0)
--- NOTE | 2018-12-21 13:37 | NUR ---
PULLED OUT MIDLINE PT AGITATED, PULLING AT LINES. NEW IV STARTED. PRN ATIVAN GIVEN. WILL CONTINUE TO MONITOR.
[2018-12-21] MEDS: LORazepam 2 MG/ML VIAL IVP PRN (13:51)
--- NOTE | 2018-12-21 14:00 | NUR ---
DC Planning: notified [facility] that dr. Verma already contact [facility]. [facility] accepted the hospice per md's recommendation. will not contact [facility] as per earlier request. >> Emailed to Lukasz : requesting medical screening.
--- NOTE | 2018-12-21 14:53 | NUR ---
DR. AGUILARIUM AT BEDSIDE EXAMINING PT. INFORMED MD THAT DR. UNGER EXAMINED PT AND ORDERED 1 UNIT OF PRBC.
--- NOTE | 2018-12-21 15:49 | NUR ---
BLOOD TRANSFUSION PT LESS AGITATED. VITALS STABLE, BLOOD TRANSFUSION STARTED. WILL CONTINUE TO MONITOR.
[2018-12-21] MEDS: D5W 1,000 ML IV SCH (15:53)
[2018-12-21 16:26] VITALS: BP_SYST 108
--- NOTE | 2018-12-21 17:30 | NUR ---
DC Planning: Per dr. Verma's request and an agreeable from Franklin Murray's dtr to send the snf referral to [facility]. The inquiry will manage in am. Message left for weekend binder caser/Marlin.
--- NOTE | 2018-12-21 17:39 | NUR ---
Nutrition F/U RD reviewed pt's current EMR including diet Hx, physician notes, nursing notes, pertinent labs/meds/procedures, care trends, and care activity. Current diet order: NPO x 2 days PMH: HTN, hypothyroidism, ALOC, DJD, Alzheimers Dz, dementia per physician's notes. Since admission, pt also found w/ sepsis, STEPHANY, malnutrition, cardiomyopathy, acute systolic CHF, acute metabolic encephalopathy, pneumonia, pulmonary edema, leukemia, ARF, severe malnutrition, dysphagia, STEPHANY per physician's notes. Subjective Information: Pt was seen resting in bed w/ daughter at bedside. TF Vital AF 1.2 running at 50 mL/hr with 620 mL infused via GT. Pt is s/p GT placement yesterday, 12/20/18. Pt bed scale wt 141.5 #. Per EMR, pt has cognitive limitations and remains confused. Cystostomy placed 12/20 per physician notes. RN reported pt is tolerating well with 10-15 mL of residual noted. Pt has loose stool earlier today and no skin breakdown. RN plans to increase TF to 60 mL/hr. Current TF is no longer appropriate d/t pt no longer on vent support; pt may benefit instead from Jevity 1.5 TF formula for optimal nutrition. New labs 12/21/18: BUN 52 H, CRE 2.19 H, BG 123 H, WBC 2.1 L Estimated Energy Expenditure (kcals/day) 2852-6802 kcal/day (30-35 kcal/kg CBW for sepsis) Estimated Protein Required (g/day) 89-118 gm/day (1.5-2 gm/kg CBW for sepsis) Estimated Fluid Required (l/day) Defer to MD d/t CHF Problem/Etiology/Signs/Symptoms Increased nutritional needs related to metabolic condition as evidenced by estimated nutritional needs for sepsis. *ongoing* Expected Outcomes/Goals - Monitor TF tolerance w/ goals of pt meeting greater than 100% of estimated nutritional needs, labs trending WML, and skin integrity/wt maintenance. Dietitian Recommendations * Recommend Jevity 1.5 at 60 ml/hr, Free Water Flush: per physician d/t CHF via GT Provides: 2160 kcal/day, 92 gm of protein/day, 1094 ml free water/day. Meets: 105% of upper estimated caloric needs and 103% of lower end estimated protein needs. Follow Up High Risk: F/U in 2-3 days Signed: 12/21/18 at 1740 by Yuliya DE LA CRUZ <Co-Signature Required> Co-Signed: 12/21/18 at [address]
--- NOTE | 2018-12-21 17:42 | NUR ---
Dietitian Recommendations * Recommend Jevity 1.5 at 60 ml/hr, Free Water Flush: per physician d/t CHF via GT Provides: 2160 kcal/day, 92 gm of protein/day, 1094 ml free water/day. Meets: 105% of upper estimated caloric needs and 103% of lower end estimated protein needs. LP, RD Please refer to Nutrition F/U for details. Signed: 12/21/18 at 1742 by Yuliya DE LA CRUZ <Co-Signature Required> Co-Signed: 12/21/18 at [address]
--- NOTE | 2018-12-21 17:49 | NUR ---
RN ROUNDS PT RESTING, NO ACUTE DISTRESS NOTED, BREATHING EVEN AND UNLABORED, VITALS STABLE, BLOOD INFUSING. WILL CONTINUE TO MONITOR.
--- NOTE | 2018-12-21 19:15 | NUR ---
BLOOD TRANSFUSION END PT TOLERATED WELL, PT RESTING IN BED, VITALS STABLE, WILL CONTINUE TO MONITOR.
--- NOTE | 2018-12-21 19:30 | NUR ---
CLOSING NOTE BEDSIDE SBAR REPORT GIVEN TO RECIEVING BENDING SHED WORKER RN. PT RESTING IN BED, NO ACUTE DISTRESS NOTED. FEEDING TUBE INFUSING WELL. IVF INFUSING WELL. THRASHER DRAINING TO GRAVITY. RESTRAINTS IN PLACE, ISOLATION PRECAUTIONS IN PLACE. CALL LIGHT WITHIN REACH, BED IN LOW AND LOCKED POSITION WITH BED ALARM ON. PT CARE ENDORSED TO BENDING SHED WORKER RN.
[2018-12-21 20:00] VITALS: BP_SYST 128
[2018-12-22] MEDS: METOPROLOL TARTRATE 5 MG/5 ML VIAL IVP SCH ×4 (01:00→18:49)
[2018-12-22 01:35] VITALS: BP_SYST 156
[2018-12-22] MEDS: IPRATROPIUM BROM 0.5 MG/2.5 ML VIAL.NEB (ATROVENT) INH SCH ×4 (02:07→19:51)
[2018-12-22] MEDS: LORazepam 2 MG/ML VIAL IVP PRN ×2 (02:31→06:54)
[2018-12-22] MEDS: LEVOTHYROXINE SODIUM 0.05 MG TABLET PO SCH (06:51)
[2018-12-22] MEDS: AMIODARONE HCL 200 MG TABLET PO SCH ×3 (06:52→21:44)
[2018-12-22] MEDS: ALBUTEROL SULFATE 0.083% 2.5 MG/3 ML VIAL.NEB INH SCH ×3 (07:18→19:52)
--- NOTE | 2018-12-22 07:33 | NUR ---
RT NOTES Sterile NTS well tolerated.
--- NOTE | 2018-12-22 07:45 | NUR ---
AM ROUNDS: RECEIVED PATIENT ON CONTACT ISOLATION PRECAUTION/REVERSE WELL. ON OXYGEN MASK,GOOD SATURATION. VERY MOIST, RT WILL DO SUCTION . TUBE FEEDS ON GOING. BED LOCKED AT LOWEST POSITION. CONTINUE TO MONITOR.
[2018-12-22 09:07] VITALS: BP_SYST 132
[2018-12-22] MEDS: POTASSIUM CHLORIDE 20 MEQ TAB.PRT.SR PO SCH (09:09)
[2018-12-22] MEDS: LOSARTAN POTASSIUM 50 MG TABLET (COZAAR) PO SCH (09:09)
[2018-12-22] MEDS: LEVOFLOXACIN 250 MG/D5W 50 ML IV SCH (09:09)
[2018-12-22] MEDS: ALLOPURINOL 300 MG TABLET (ZYLOPRIM) PO SCH (09:10)
[2018-12-22] MEDS: PANTOPRAZOLE SODIUM 40 MG/VIAL (PROTONIX) IVP SCH (09:10)
[2018-12-22] MEDS: METOPROLOL SUCCINATE 50 MG TAB.SR.24H (TOPROL XL) PO SCH ×2 (09:10→21:43)
[2018-12-22] MEDS: FUROSEMIDE 20 MG/2 ML VIAL IVP SCH ×2 (09:11→21:44)
--- NOTE | 2018-12-22 09:30 | NUR ---
Meds/g tube: With moderate residuals noted. Due po meds crushed given.Well tolerated.
[2018-12-22 12:31] VITALS: BP_SYST 100
--- NOTE | 2018-12-22 13:10 | NUR ---
Water flush: Crushed meds given and flushed with water. Tolerated well.
--- NOTE | 2018-12-22 14:41 | NUR ---
DC PLANNING: CLINICALS HAS BEEN FAXED TO [facility] . Addendum: 12/22/18 at 1446 by Marlin Muse RN CM SPOKE WITH CLEMENT (EXPANDER @ [facility]), THEY CANNOT ACCEPT PATIENT WITHOUT AUTHORIZATION. PER CLEMENT, HE WILL CALL THEIR BUSINESS OFFICE BUT IT IS WEEKEND. WILL HAVE TO FOLLOW UP ON MONDAY IF THEY WILL ACCEPT OR NOT.
[2018-12-22] MEDS: D5W 1,000 ML IV SCH (15:00)
--- NOTE | 2018-12-22 17:00 | NUR ---
Water flush: With moderate amount of tube feeds residuals,flushed with water as ordered.
[2018-12-22 17:38] VITALS: BP_SYST 119
--- NOTE | 2018-12-22 18:33 | NUR ---
Closing Notes: Patient resting. o2 2l/nc,good saturation.Moist but suction secretions as needed. Tube feeds on going. Oakley in situ.Bilateral scd's on le. Bed locked at lowest position. Bed alarm on. Practice guidelines met though out the shift.
[2018-12-22 21:00] VITALS: BP_SYST 165
--- NOTE | 2018-12-22 21:42 | NUR ---
Opening notes Pt alert, awake, restless. O2 2L via NC satting 99%. IVF infusing at ordered rate L. FA clear and patent. GT feeding at ordered rate. Residual 120. HOB maintained elevated. Abd binder on. Sergio wrist restraints checked and secured. Oakley catheter draining to gravity with dark yellow urine. Pt on ROGERS mattress. Bed low, locked, siderails up, alarm on. To monitor closely.
[2018-12-23] MEDS: METOPROLOL TARTRATE 5 MG/5 ML VIAL IVP SCH ×4 (01:00→18:29)
[2018-12-23] MEDS: LORazepam 2 MG/ML VIAL IVP PRN ×2 (01:17→07:44)
--- NOTE | 2018-12-23 01:17 | NUR ---
Ativan Pt awake, restless, hanging legs outside the bed. Pt repositioned. HOB maintained elevated. Ativan 0.5 mg given IVP as needed. Sergio wrists restraints on. Oakley cath draining to gravity. Will continue to monitor.
[2018-12-23] MEDS: IPRATROPIUM BROM 0.5 MG/2.5 ML VIAL.NEB (ATROVENT) INH SCH ×4 (01:33→20:22)
[2018-12-23] MEDS: ALBUTEROL SULFATE 0.083% 2.5 MG/3 ML VIAL.NEB INH SCH ×4 (01:33→20:22)
[2018-12-23 02:49] VITALS: BP_SYST 158
--- NOTE | 2018-12-23 04:20 | NUR ---
Rounds Pt only asleep and calm about 30mins. No s/s distress noted. Sergio wrists restrainsts on. Bed low, locked, siderails up, alarm on. To monitor.
--- NOTE | 2018-12-23 06:20 | NUR ---
Closing notes Pt awake, confused, restless. Sergio wrists restraints on. Safety maintained. GT running at ordered rate. Water flushes given. IVF infusing at ordered rate L. FA clear and patent. Oakley catheter draining to gravity. Pt on ROGERS. To endorse to AM nurse.
[2018-12-23] MEDS: LEVOTHYROXINE SODIUM 0.05 MG TABLET PO SCH (07:10)
[2018-12-23] MEDS: AMIODARONE HCL 200 MG TABLET PO SCH ×3 (07:10→21:40)
[2018-12-23 07:25] LABS: ANION GAP 7 (5-15); CHLORIDE 105 mmol/L (98-107); CREATININE 1.99 mg/dL (0.55-1.30); GLUCOSE 120 mg/dL (70-99); SODIUM SERUM 138 mmol/L (136-145); UREA NITROGEN, BLOOD 51 mg/dL (8-21)
--- NOTE | 2018-12-23 07:30 | NUR ---
AM ROUNDS: PATIENT ANXIOUS.BILATERAL SOFT WRIST RESTRAINT ON ORDERED. O2 2L/NC,GOOD SATURATION. TUBE FEEDS ON GOING. THRASHER IN SITU. BILATERAL SCD'S ON LE. UP DATES GIVEN BY NIGHT NURSE AMANDA. IVF AT LEFT FOREARM INFUSING WELL.ON CONTACT ISOLATION PRECAUTION RENDERED.CONTINUE TO MONITOR.
[2018-12-23 07:34] LABS: HEMATOCRIT 23.7 % (36-48); HEMOGLOBIN 8.1 g/dL (12.0-16.0); MEAN CORPUSCULAR HEMOGLOBIN 32 pg (27-31); MEAN CORPUSCULAR HGB CONC 34 % (32-36); MEAN CORPUSCULAR VOLUME 93 fL (79.0-98.0); RED BLOOD CELL COUNT(AUTO) 2.54 MIL/uL (4.2-6.2); RED CELL DISTRIBUTION WIDTH 18.7 % (9.0-15.0); WHITE BLOOD COUNT (AUTO) 2.5 K/uL (4.8-10.8)
[2018-12-23 07:43] LABS: POTASSIUM 2.8 mmol/L (3.5-5.1)
--- NOTE | 2018-12-23 07:44 | NUR ---
AGITATION: SOFT WRIST RESTRAINT ON ,PATIENT VERY AGITATED,DUE IV ATIVAN GIVEN ORDERED.
--- NOTE | 2018-12-23 08:20 | NUR ---
RN ROUNDS: PATIENT CALM THIS TIME.
--- NOTE | 2018-12-23 08:36 | NUR ---
Davide WHITE PAGED ALONSO ABARCA AT [phone] SPOKE WITH FRIDA.
[2018-12-23 08:50] VITALS: BP_SYST 147
[2018-12-23] MEDS ORDERED: POTASSIUM CHLORIDE 40 MEQ in NS 250 ML IV ONE (09:30)
--- NOTE | 2018-12-23 09:30 | NUR ---
K-RIDER: K-RIDER 40MEQ IV GIVEN ORDERED.NO PROBLEM.
[2018-12-23] MEDS: D5W 1,000 ML IV SCH (09:40)
[2018-12-23] MEDS: POTASSIUM CHLORIDE 20 MEQ TAB.PRT.SR PO SCH (09:40)
[2018-12-23] MEDS: METOPROLOL SUCCINATE 50 MG TAB.SR.24H (TOPROL XL) PO SCH ×2 (09:42→21:41)
[2018-12-23] MEDS: ALLOPURINOL 300 MG TABLET (ZYLOPRIM) PO SCH (09:42)
[2018-12-23] MEDS: LOSARTAN POTASSIUM 50 MG TABLET (COZAAR) PO SCH (09:42)
[2018-12-23] MEDS: PANTOPRAZOLE SODIUM 40 MG/VIAL (PROTONIX) IVP SCH (09:43)
[2018-12-23] MEDS: FUROSEMIDE 20 MG/2 ML VIAL IVP SCH ×2 (09:43→20:22)
[2018-12-23] MEDS: LEVOFLOXACIN 250 MG/D5W 50 ML IV SCH (09:44)
[2018-12-23 10:41] LABS: ATYPICAL LYMPHOCYTES % 23 % (0-0); BAND % (MANUAL) 1 % (0-6); BASOPHILS % (MANUAL) 0 % (0-2); EOSINOPHILS % (MANUAL) 0 % (0-7); LYMPHOCYTES % (MANUAL) 50 % (20-46); MONOCYTES % (MANUAL) 8 % (0-11)
[2018-12-23 10:42] LABS: PLATELET COUNT (AUTO) 46 K/uL (130-430)
--- NOTE | 2018-12-23 11:00 | NUR ---
RN ROUNDS: RESTING. WELL TOLERATED O2 2L/NC. CALM THIS TIME.
[2018-12-23 12:53] VITALS: BP_SYST 110
--- NOTE | 2018-12-23 13:00 | NUR ---
WATER FLUSH: WITH RESIDUALS IN MODERATION.WATER FLUSHED GIVEN VIA G TUBE.
--- NOTE | 2018-12-23 17:00 | NUR ---
WATER FLUSH: STILL WITH MODERATE RESIDUALS. WATER FLUSH VIA G TUBE RENDERED.
[2018-12-23 18:19] VITALS: BP_SYST 130
--- NOTE | 2018-12-23 18:31 | NUR ---
CLOSING NOTES: PATIENT RELAXED AND CALM THIS TIME. O2 2L/NC,GOOD SATURATION. IVF ON GOING AT LEFT FOREARM INTACT.TUBE FEEDS RUNNING WELL. THRASHER IN SITU.NO ACUTE DISTRESS.BED LOCKED AT LOWEST POSITION. BED ALARM ON. PRACTICE GUIDELINES MET THROUGH THE SHIFT.
[2018-12-23 20:15] VITALS: BP_SYST 118
--- NOTE | 2018-12-23 20:15 | NUR ---
Opening notes Pt asleep, easily arousable, confused. VSS, afebrile. O2 sat 99% on 2L via NC. GT feeding Jevity 1.5 running at 60cc/hr. HOB maintained elevated. IVF infusing L FA 20G clear and patent. Oakley catheter draining to gravity. Sergio wrist restraints on. Pt on ROGERS mattress, Sergio SCDs on. Safety measures in place. To monitor pt closely.
--- NOTE | 2018-12-23 20:20 | NUR ---
Dr. Joey vargas
--- NOTE | 2018-12-23 21:40 | NUR ---
Pericare Pt had a small BM, pericare provided. Z guard applied to sacral redness. To monitor.
--- NOTE | 2018-12-24 00:15 | NUR ---
Rounds Pt asleep, easily arousable, restless. Sergio wrists restraints on. GT feeding running at ordered rate. HOB maintained elevated. Will continue to monitor closely.
[2018-12-24 00:22] VITALS: BP_SYST 120
[2018-12-24] MEDS: METOPROLOL TARTRATE 5 MG/5 ML VIAL IVP SCH ×4 (01:00→19:08)
[2018-12-24] MEDS: IPRATROPIUM BROM 0.5 MG/2.5 ML VIAL.NEB (ATROVENT) INH SCH ×4 (01:34→19:32)
[2018-12-24] MEDS: ALBUTEROL SULFATE 0.083% 2.5 MG/3 ML VIAL.NEB INH SCH ×4 (01:35→19:32)
--- NOTE | 2018-12-24 04:05 | NUR ---
Rounds Pt asleep, no s/s distress noted. Sergio wrists restraints in place. Continuous GT feeding running at ordered rate. Oakley catheter draining to gravity. To monitor.
[2018-12-24] MEDS: LEVOTHYROXINE SODIUM 0.05 MG TABLET PO SCH (06:59)
[2018-12-24] MEDS: AMIODARONE HCL 200 MG TABLET PO SCH ×3 (07:02→22:09)
--- NOTE | 2018-12-24 07:15 | NUR ---
Closing notes Pt awake, restless, incontinent of BM. IVF infusing at ordered rate, clear and patent. Oakley catheter draining to gravity. New bottle of GT feeding Jevity 1.5 started. Pt tolerating GT feeding. Abd binder on. HOB maintained elevated. Zguard applied to periarea redness. Sergio wrists restraints on. Safety maintained. To endorse to AM nurse.
[2018-12-24 07:32] LABS: HEMOGLOBIN 7.4 g/dL (12.0-16.0); MEAN CORPUSCULAR HEMOGLOBIN 31 pg (27-31); MEAN CORPUSCULAR HGB CONC 34 % (32-36); MEAN CORPUSCULAR VOLUME 93 fL (79.0-98.0); RED BLOOD CELL COUNT(AUTO) 2.35 MIL/uL (4.2-6.2); RED CELL DISTRIBUTION WIDTH 18.6 % (9.0-15.0); WHITE BLOOD COUNT (AUTO) 2.8 K/uL (4.8-10.8)
[2018-12-24 07:34] LABS: ANION GAP 6 (5-15); CALCIUM 8.1 mg/dL (8.4-11.0); CHLORIDE 104 mmol/L (98-107); CREATININE 1.72 mg/dL (0.55-1.30); GLUCOSE 131 mg/dL (70-99); POTASSIUM 4.3 mmol/L (3.5-5.1); SODIUM SERUM 138 mmol/L (136-145); UREA NITROGEN, BLOOD 47 mg/dL (8-21)
[2018-12-24 08:23] LABS: HEMATOCRIT 21.9 % (36-48); PLATELET COUNT (AUTO) 39 K/uL (130-430)
--- NOTE | 2018-12-24 08:45 | NUR ---
RN INITIAL NOTES RECEIVED PATIENT IN BED AWAKE AND CONFUSED NO DISTRESS , RESP EVEN AND UNLABORED, PATIENT WITH GTUBE FEEDING , WITH THRASHER CATH , WITH IVF INFUSING ORDERED , SATING 99% , CALLED DR CARUSO FOR LOW HGB AND LOW PLATELET COUNT, WRIST RESTRAIN ACTIVE AND RELEASE CHECK FOR CIRCULATION
[2018-12-24] MEDS: ALLOPURINOL 300 MG TABLET (ZYLOPRIM) PO SCH (09:00)
--- NOTE | 2018-12-24 10:00 | NUR ---
DR CARUSO ABN LABS , REPORTED TO DR CARUSO LOW HGB AND PLATELET COUNT PER DR CARUSO TO FOLLOW PARAMETER WILL SEE PATIENT LATER , POLO BANERJEE AT BEDSIDE AWARE OF THE PLAN OF CARE AND PRESENT LABS
[2018-12-24 10:23] LABS: ATYPICAL LYMPHOCYTES % 31 % (0-0); BAND % (MANUAL) 0 % (0-6); BASOPHILS % (MANUAL) 1 % (0-2); EOSINOPHILS % (MANUAL) 2 % (0-7); LYMPHOCYTES % (MANUAL) 29 % (20-46); METAMYELOCYTES % 2 % (0-0); MONOCYTES % (MANUAL) 20 % (0-11); MYELOCYTES % 2 % (0-0)
[2018-12-24] MEDS: POTASSIUM CHLORIDE 20 MEQ TAB.PRT.SR PO SCH (10:31)
[2018-12-24] MEDS: PANTOPRAZOLE SODIUM 40 MG/VIAL (PROTONIX) IVP SCH (10:31)
[2018-12-24] MEDS: METOPROLOL SUCCINATE 50 MG TAB.SR.24H (TOPROL XL) PO SCH ×2 (10:32→21:00)
[2018-12-24] MEDS: LOSARTAN POTASSIUM 50 MG TABLET (COZAAR) PO SCH (10:33)
[2018-12-24] MEDS: FUROSEMIDE 20 MG/2 ML VIAL IVP SCH ×2 (10:36→22:05)
[2018-12-24] MEDS: LEVOFLOXACIN 250 MG/D5W 50 ML IV SCH (10:38)
[2018-12-24 12:56] VITALS: BP_SYST 142
[2018-12-24] MEDS: LORazepam 2 MG/ML VIAL IVP PRN (12:59)
--- NOTE | 2018-12-24 13:00 | NUR ---
ATIVAN PATIEMNT GIVEN ATIVAN AND MONITORED MARIAJOSE DTR AT BEDSIDE Addendum: 12/24/18 at 1336 by Molly Crow RN Amended: Links added.
--- NOTE | 2018-12-24 16:00 | NUR ---
ROUND S PATIENTS SLEEPING A THIS TIME ATIVAN SIDE EFFECT PATIENT CALMED AND MONITORED , THRASHER CATH AND WRIST RESTRAINED RENEWED , PER DR CHAUDHARI PROGRESS NOTE TO DC IV ATB
[2018-12-24 17:38] VITALS: BP_SYST 129
[2018-12-24] MEDS: D5W 1,000 ML IV SCH (18:12)
--- NOTE | 2018-12-24 18:16 | NUR ---
ENDORSEMENT PATIENT AT THIS TIME WOKE UP AFTER A RESTED SLEEP FROM THE ATIVAN GIVEN EARLIER., FAMILY VISITING AT THIS TIME , WILL CONT PLAN OF CARE AND CONT WITH THRASHER CATH , GTUBE FEEDING IS TOLERATED, IVF INFUSING ORDERED, CONT WITH WRIST RESTRAIN
[2018-12-25 00:02] VITALS: BP_SYST 107
[2018-12-25] MEDS: IPRATROPIUM BROM 0.5 MG/2.5 ML VIAL.NEB (ATROVENT) INH SCH ×4 (00:44→19:37)
[2018-12-25] MEDS: ALBUTEROL SULFATE 0.083% 2.5 MG/3 ML VIAL.NEB INH SCH ×4 (00:44→19:38)
[2018-12-25] MEDS: METOPROLOL TARTRATE 5 MG/5 ML VIAL IVP SCH ×4 (01:00→19:05)
[2018-12-25 04:00] VITALS: BP_SYST 108
[2018-12-25] MEDS: AMIODARONE HCL 200 MG TABLET PO SCH ×3 (06:00→23:01)
[2018-12-25] MEDS: LEVOTHYROXINE SODIUM 0.05 MG TABLET PO SCH (07:00)
--- NOTE | 2018-12-25 07:30 | NUR ---
RN INITIAL NOTES RECEIVED PATIENT IN BED NOT IN ANY DISTRESS , WITH O2 IN VIA NC AT 2 LITER /MIN SATING 99%. WITH IVF TOO LEFTHAND INFUSING AT 30 CC /HR , GTUBE OFF , WAITING FOR THE MILK TO BE DELIVERED , PER REG MARKETING AMBASSADOR NURSE AWARE FOR THE DIETARY THIS AM TO CALL FOR THE MILK , WITH BILAT WRIST RESTRAIN, WITH THRASHER CATH INTACT NO HEMATURIA, CALLED PATIENT NAME SHE OPENS EYES BUT CONFUSED , PATIENT REMOVED AND KICKS SCD , WILL REAAPLY LATER WHEN PATIENT CALMED DOWN, CALLED AND LEFT MESSAGE TO THE KITCHEN FOR THE MILK
[2018-12-25] MEDS: PANTOPRAZOLE SODIUM 40 MG/VIAL (PROTONIX) IVP SCH (09:47)
[2018-12-25] MEDS: FUROSEMIDE 20 MG/2 ML VIAL IVP SCH ×2 (09:47→20:21)
[2018-12-25] MEDS: METOPROLOL SUCCINATE 50 MG TAB.SR.24H (TOPROL XL) PO SCH ×2 (09:48→20:18)
[2018-12-25] MEDS: POTASSIUM CHLORIDE 20 MEQ TAB.PRT.SR PO SCH (09:48)
[2018-12-25] MEDS: ALLOPURINOL 300 MG TABLET (ZYLOPRIM) PO SCH (09:48)
[2018-12-25] MEDS: LOSARTAN POTASSIUM 50 MG TABLET (COZAAR) PO SCH (09:49)
--- NOTE | 2018-12-25 10:00 | NUR ---
PULMONOLOGY PATIENT SEEN BY DR RICHARDSON DISCUSSED PATIENT CONDITION ORDERS CONTINUED , NO DISTRESS. PATIENT INTERMITTENTLY AWAKE AND EPISODES OF TAKING OUT HER SCD BY KICKING . CONT WITH WRIST RESTRAIN
[2018-12-25 11:23] VITALS: BP_SYST 147
[2018-12-25 12:00] VITALS: BP_SYST 141
--- NOTE | 2018-12-25 12:00 | NUR ---
ROUNDS SLEEPING AT THIS TIME SAFETY ENSURED
--- NOTE | 2018-12-25 14:00 | NUR ---
ROUNDS PATIENT AWAKE AND NOT IN ANY DISTRESS FAMILY AT BEDSIDE
[2018-12-25] MEDS: D5W 1,000 ML IV SCH (15:00)
[2018-12-25 16:11] VITALS: BP_SYST 137
--- NOTE | 2018-12-25 16:31 | NUR ---
Nutrition F/U RD reviewed pt's current EMR including diet Hx, physician notes, nursing notes, pertinent labs/meds/procedures, care trends, and care activity. Current diet order: Jevity 1.5 at 60 ml/hr, Free Water Flush: per physician via GT x2 days Admission Dx: Pancytopenia, pneumonia PMH: HTN, hypothyroidism, ALOC, DJD, Alzheimers Dz, dementia per physician's notes. Since admission, pt also found w/ sepsis, STEPHANY, malnutrition, cardiomyopathy, acute systolic CHF, acute metabolic encephalopathy, pneumonia, pulmonary edema, leukemia, ARF, severe malnutrition, dysphagia, STEPHANY per physician's notes. Subjective Information: Pt was seen resting in bed w/ daughter at bedside. TF was infusing as per physician notes. Bedscale wt taken: 140#. Per daughter, pt's UBW: 140-145#. Per EMR, pt has been tolerating TF well. Objective Information: Labs - 12/25/18: BUN 47 H (trending down), CRE 1.72 H, BG 131 H, WBC 2.8 L NEW Estimated Energy Expenditure (kcals/day) 6504-2801 kcal/day (30-35 kcal/kg CBW for respiratory failure on vent) NEW Estimated Protein Required (g/day) 77-118 gm/day (1.3-2 gm/kg CBW for respiratory failure on vent) Estimated Fluid Required (l/day) Defer to MD d/t CHF Problem/Etiology/Signs/Symptoms Increased nutritional needs related to metabolic condition as evidenced by estimated nutritional needs for sepsis. *ongoing* Expected Outcomes/Goals - Monitor TF tolerance w/ goals of pt meeting greater than 100% of estimated nutritional needs, labs trending WML, and skin integrity/wt maintenance. Dietitian Recommendations * Recommend continuing Jevity 1.5 at 60 ml/hr, Free Water Flush: per physician d/t CHF via GT Provides: 2160 kcal/day, 92 gm of protein/day, 1094 ml free water/day Meets: 105% of upper estimated caloric needs and 103% of lower end estimated protein needs Follow Up High Risk: F/U in 2-3 days
--- NOTE | 2018-12-25 16:37 | NUR ---
Dietitian Recommendations * Recommend continuing Jevity 1.5 at 60 ml/hr, Free Water Flush: per physician d/t CHF via GT Provides: 2160 kcal/day, 92 gm of protein/day, 1094 ml free water/day Meets: 105% of upper estimated caloric needs and 103% of lower end estimated protein needs LP, RD Please refer to Nutrition F/U for details.
--- NOTE | 2018-12-25 17:00 | NUR ---
ROUNDS FAMILY AT BEDSIDE TALKING TO THE PATIENT AND PATIENT RESPONDS VERBALLY
--- NOTE | 2018-12-25 19:19 | NUR ---
ENDORSEMENT PATIENT ENDORSED TO RN S. CONSULTING PROPERTY MANAGER WILL CONT MEDS , PATIENT SEEN BY DR CARUSO , CONT WITH GTUBE FEEDING TOLERATED AND CONT WITH BILAT WRIST RESTRAIN , AND THRASHER CATH .INTACT, RESTED TODAY AND INTERMITTENTLY WAKES UP , NO DISTRESS
--- NOTE | 2018-12-25 19:30 | NUR ---
Opening note received patient, awake, eyes open does not follow command, no s/sx of distress. Bed is locked in lowest position, side rails up 3x, bilat wrist restraint, call light w/in reach.
[2018-12-25 20:00] VITALS: BP_SYST 130
--- NOTE | 2018-12-25 20:20 | NUR ---
medications / patient care 100 ml residual noted and returned. due medication given with 200 ml water flush. repositioned.
[2018-12-26] MEDS ORDERED: LORazepam 2 MG/ML VIAL IVP PRN (00:30)
[2018-12-26] MEDS: D5W 1,000 ML IV SCH (00:41)
[2018-12-26] MEDS: METOPROLOL TARTRATE 5 MG/5 ML VIAL IVP SCH ×4 (00:58→18:47)
--- NOTE | 2018-12-26 01:00 | NUR ---
Agitation administered 0.5 mg ativan for agitation. Patient has restraint and is able to kick legs, bend knee and reach SCD's. She removed both SCD's and is restless, reach for any item she can pull on.
[2018-12-26] MEDS: ALBUTEROL SULFATE 0.083% 2.5 MG/3 ML VIAL.NEB INH SCH ×4 (01:11→19:01)
[2018-12-26] MEDS: IPRATROPIUM BROM 0.5 MG/2.5 ML VIAL.NEB (ATROVENT) INH SCH ×4 (01:12→19:01)
--- NOTE | 2018-12-26 01:34 | NUR ---
RT Patient receiving breathing treatment, given by RT.
[2018-12-26 01:54] VITALS: BP_SYST 101
--- NOTE | 2018-12-26 04:29 | NUR ---
free water 30 ml residual noted and returned, flushed 200 ml free water as ordered, patient tolerated
[2018-12-26] MEDS: LEVOTHYROXINE SODIUM 0.05 MG TABLET PO SCH (06:31)
[2018-12-26] MEDS: AMIODARONE HCL 200 MG TABLET PO SCH ×2 (06:32→14:32)
--- NOTE | 2018-12-26 07:38 | NUR ---
closing note endorsed report, needs met throughout shift, patient presently stable.
--- NOTE | 2018-12-26 07:48 | NUR ---
OPENING NOTE Patient resting in the bed. No acute distress. HOB elevated. Skin warm and dry to touch. IV intact to left wrist, no redness, no swelling, no drainage. On D5W at 30ml/hr, infusing well. GT intact, on Jevity 1.5 at 60ml/hr, infusing well. F/C intact, drain gravity with yellow urine. On contact isolation. Safety measure maintained. Call light within reached. Bed locked in low position, side rails up, bed alarm on. Will continue to monitor.
[2018-12-26 07:51] LABS: BASOPHILS % (AUTO) 0.3 % (0.0-2.0); EOSINOPHILS % (AUTO) 1.1 % (0.0-4.0); HEMATOCRIT 23.2 % (36-48); LYMPHOCYTES % (AUTO) 25.6 % (20.5-51.5); MEAN CORPUSCULAR HEMOGLOBIN 32 pg (27-31); MEAN CORPUSCULAR HGB CONC 34 % (32-36); MEAN CORPUSCULAR VOLUME 94 fL (79.0-98.0); MONOCYTES # (AUTO) 2.6 K/uL (0.0-1.0); MONOCYTES % (AUTO) 65.3 % (1.7-9.3); NEUTROPHILS % (AUTO) 7.7 % (40.0-70.0); RED BLOOD CELL COUNT(AUTO) 2.48 MIL/uL (4.2-6.2); RED CELL DISTRIBUTION WIDTH 18.6 % (9.0-15.0); WHITE BLOOD COUNT (AUTO) 3.9 K/uL (4.8-10.8)
[2018-12-26 07:56] LABS: ANION GAP 2 (5-15); CHLORIDE 99 mmol/L (98-107); CREATININE 1.49 mg/dL (0.55-1.30); GLUCOSE 142 mg/dL (70-99); POTASSIUM 4.6 mmol/L (3.5-5.1); SODIUM SERUM 131 mmol/L (136-145); UREA NITROGEN, BLOOD 37 mg/dL (8-21)
[2018-12-26 08:00] VITALS: BP_SYST 121
[2018-12-26 08:21] LABS: NEUTROPHILS # (AUTO) 0.3 K/uL (1.8-7.7)
--- NOTE | 2018-12-26 09:54 | NUR ---
PLATELET=47,000 Called Ria Bedolla at [phone] for critical lab but not call back. Dr. Meyers in the unit and informed to him regarding the Platelet=47,000. Dr. Alegria stated "that's fine." and assessed the patient with no new order at this time.
[2018-12-26] MEDS: PANTOPRAZOLE SODIUM 40 MG/VIAL (PROTONIX) IVP SCH (10:00)
[2018-12-26] MEDS: ALLOPURINOL 300 MG TABLET (ZYLOPRIM) PO SCH (10:01)
[2018-12-26] MEDS: FUROSEMIDE 20 MG/2 ML VIAL IVP SCH ×2 (10:01→20:41)
[2018-12-26] MEDS: POTASSIUM CHLORIDE 20 MEQ TAB.PRT.SR PO SCH (10:01)
[2018-12-26] MEDS: LOSARTAN POTASSIUM 50 MG TABLET (COZAAR) PO SCH (10:02)
[2018-12-26] MEDS: METOPROLOL SUCCINATE 50 MG TAB.SR.24H (TOPROL XL) PO SCH ×2 (10:02→20:42)
--- NOTE | 2018-12-26 10:02 | NUR ---
AM SCHEDULE MED GIVEN Patient resting in the bed. No acute distress. HOB elevated. Continue on GT feeding as ordered. AM schedule med given as ordered, tolerated well. Bilateral soft restraint in placed and released every 2 hr. Able to move hands/fingers without difficulty, pulse present. F/C intact, drain gravity. Contact isolation maintained. Safety measure maintained. Call light within reached. Bed locked in low position, side rails up, bed alarm on. Continue to monitor.
[2018-12-26 10:03] LABS: PLATELET COUNT (AUTO) 49 K/uL (130-430)
[2018-12-26 12:00] VITALS: BP_SYST 109
--- NOTE | 2018-12-26 12:27 | NUR ---
SEEN AND EXAMINED BY SERVANDO HARDING.
--- NOTE | 2018-12-26 14:05 | NUR ---
ROUND Patient resting in the bed. No acute distress. HOB elevated. Continue on GT feeding as ordered. Bilateral soft restraint in placed and released every 2 hr. Able to move hands/fingers without difficulty, pulse present. F/C intact, drain gravity. Contact isolation maintained. Safety measure maintained. Call light within reached. Bed locked in low position, side rails up, bed alarm on. Continue to monitor.
--- NOTE | 2018-12-26 15:15 | NUR ---
SEEN AND EXAMINED BY LACY NESS.
[2018-12-26 16:08] VITALS: BP_SYST 146
--- NOTE | 2018-12-26 16:59 | NUR ---
ROUND Patient resting in the bed. No acute distress. HOB elevated. Continue on GT feeding as ordered. Bilateral soft restraint in placed and released every 2 hr. Able to move hands/fingers without difficulty, pulse present. F/C intact, drain gravity. Contact isolation maintained. Safety measure maintained. Bed locked in low position, side rails up, bed alarm on. Call light within reached. Continue to monitor.
--- NOTE | 2018-12-26 18:59 | NUR ---
CLOSING NOTE Patient resting in the bed. No acute distress. HOB elevated. Skin warm and dry to touch. IV intact to left wrist, no redness, no swelling, no drainage. On D5W at 30ml/hr, infusing well. GT intact, on Jevity 1.5 at 60ml/hr, infusing well. Bilateral soft restraint in placed, released Q 2hr, able to move hands/fingers without problem, pulse present. F/C intact, drain gravity with yellow urine. On contact isolation. Safety measure maintained. Call light within reached. Bed locked in low position, side rails up, bed alarm on. Will endorse to night nurse.
--- NOTE | 2018-12-26 19:35 | NUR ---
ROUNDS PATIENT RESTING COMFORTABLY IN BED, NOT IN DISTRESS, VITALS STABLE. NO SIGNS OF ANY PAIN AND DISCOMFORT NOTED. ASSESSMENT DONE AND DOCUMENTED. SEE FLOWSHEET. NEEDS ATTENDED TO. SAFETY AND FALL MEASURES IN PLACED. WILL CONTINUE TO MONITOR.
--- NOTE | 2018-12-26 21:13 | NUR ---
MEDICATION DUE MEDICATIONS GIVEN SCHEDULED, TOLERATED WELL. WILL CONTINUE TO MONITOR.
--- NOTE | 2018-12-27 00:12 | NUR ---
ROUNDS PATIENT ASLEEP, NO SOB NOR PAIN AND DISCOMFORT NOTED, WILL CONTINUE TO MONITOR.
[2018-12-27] MEDS: ALBUTEROL SULFATE 0.083% 2.5 MG/3 ML VIAL.NEB INH SCH ×4 (00:30→20:36)
[2018-12-27] MEDS: IPRATROPIUM BROM 0.5 MG/2.5 ML VIAL.NEB (ATROVENT) INH SCH ×4 (00:30→20:36)
[2018-12-27] MEDS: AMIODARONE HCL 200 MG TABLET PO SCH ×4 (00:35→22:00)
[2018-12-27 00:40] VITALS: BP_SYST 116
[2018-12-27] MEDS: METOPROLOL TARTRATE 5 MG/5 ML VIAL IVP SCH ×4 (00:40→18:43)
--- NOTE | 2018-12-27 02:13 | NUR ---
ROUNDS PATIENT ASLEEP, NO SOB NOR PAIN AND DISCOMFORT NOTED, WILL CONTINUE TO MONITOR.
--- NOTE | 2018-12-27 04:12 | NUR ---
ROUNDS PATIENT ASLEEP, NO SOB NOR PAIN AND DISCOMFORT NOTED, RESPIRATIONS EVEN AND UNLABORED. WILL CONTINUE TO MONITOR.
[2018-12-27] MEDS: LEVOTHYROXINE SODIUM 0.05 MG TABLET PO SCH (06:21)
--- NOTE | 2018-12-27 06:52 | NUR ---
CLOSING NOTES PATIENT RESTING COMFORTABLY IN BED, VITALS STABLE, NO SIGNS OF ANY PAIN AND DISCOMFORT NOTED. ALL NEEDS ATTENDED TO. SAFETY MEASURES MAINTAINED. WILL ENDORSE TO INCOMING SHIFT NURSE.
[2018-12-27] MEDS: D5W 1,000 ML IV SCH (07:08)
--- NOTE | 2018-12-27 07:33 | NUR ---
OPENING NOTE Patient resting in the bed. No acute distress. HOB elevated. Skin warm and dry to touch. IV intact to left wrist, no redness, no swelling, no drainage. On D5W at 30ml/hr, infusing well. GT intact, on Jevity 1.5 at 60ml/hr. Bilateral soft wrist restraint in place. F/C intact, drain gravity with yellow urine. On contact isolation. Safety measure maintained. Call light within reached. Bed locked in low position, side rails up, bed alarm on. Will continue to monitor.
--- NOTE | 2018-12-27 07:40 | NUR ---
TOOK PT OFF BIPAP. PT SATING 95%. NO DISTRESS NOTED. Addendum: 12/27/18 at 1052 by Shanelle Kaur RT Amended: Links added.
[2018-12-27 08:00] VITALS: BP_SYST 126
[2018-12-27] MEDS: POTASSIUM CHLORIDE 20 MEQ TAB.PRT.SR PO SCH (10:20)
[2018-12-27] MEDS: PANTOPRAZOLE SODIUM 40 MG/VIAL (PROTONIX) IVP SCH (10:20)
[2018-12-27] MEDS: ALLOPURINOL 300 MG TABLET (ZYLOPRIM) PO SCH (10:20)
[2018-12-27] MEDS: LOSARTAN POTASSIUM 50 MG TABLET (COZAAR) PO SCH (10:21)
[2018-12-27] MEDS: METOPROLOL SUCCINATE 50 MG TAB.SR.24H (TOPROL XL) PO SCH ×2 (10:22→20:21)
[2018-12-27] MEDS: FUROSEMIDE 20 MG/2 ML VIAL IVP SCH ×2 (10:22→20:20)
--- NOTE | 2018-12-27 10:25 | NUR ---
SEEN AND EXAMINED BY ALONSO MENDOZA.
--- NOTE | 2018-12-27 12:30 | NUR ---
ROUND Patient resting in the bed. No acute distress. HOB elevated. Continue on GT feeding as ordered. Bilateral soft restraint in placed and released every 2 hr. Able to move hands/fingers without difficulty, pulse present. F/C intact, drain gravity. Contact isolation maintained. Family at bedside. Safety measure maintained. Call light within reached. Bed locked in low position, side rails up, bed alarm on. Continue to monitor.
[2018-12-27 12:45] VITALS: BP_SYST 126
--- NOTE | 2018-12-27 14:35 | NUR ---
SEEN AND EXAMINED BY LUC CHAMBERS.
--- NOTE | 2018-12-27 15:22 | NUR ---
SEEN AND EXAMINED BY SERVANDO HARDING.
--- NOTE | 2018-12-27 15:50 | NUR ---
SEEN AND EXAMINED BY VICTORINA BURTON.
--- NOTE | 2018-12-27 16:15 | NUR ---
SEEN AND EXAMINED BY SEGUNDO CHI.
[2018-12-27 16:22] VITALS: BP_SYST 133
--- NOTE | 2018-12-27 17:07 | NUR ---
Discharge Planning: DCP faxed pt referral to [facility] [place] [place] DCP to follow up.
--- NOTE | 2018-12-27 18:40 | NUR ---
SEEN AND EXAMINED BY LACY NESS.
--- NOTE | 2018-12-27 18:50 | NUR ---
CLOSING NOTE Patient resting in the bed. No acute distress. HOB elevated. Skin warm and dry to touch. IV intact to left wrist, no redness, no swelling, no drainage. On D5W at 30ml/hr, infusing well. GT intact, on Jevity 1.5 at 60ml/hr, tolerated well. Bilateral soft restraint in placed, released Q 2hr, able to move hands/fingers without problem, pulse present. F/C intact, drain gravity with yellow urine. On contact isolation. Safety measure maintained. Call light within reached. Bed locked in low position, side rails up, bed alarm on. Will endorse to night nurse.
--- NOTE | 2018-12-28 00:12 | NUR ---
PATIENT RESTING: Patient resting quietly. No acute distress noted. Vital signs within normal range.
[2018-12-28] MEDS: METOPROLOL TARTRATE 5 MG/5 ML VIAL IVP SCH ×4 (01:00→18:30)
[2018-12-28 02:19] VITALS: BP_SYST 120
[2018-12-28] MEDS: ALBUTEROL SULFATE 0.083% 2.5 MG/3 ML VIAL.NEB INH SCH ×4 (04:17→19:43)
[2018-12-28] MEDS: IPRATROPIUM BROM 0.5 MG/2.5 ML VIAL.NEB (ATROVENT) INH SCH ×4 (04:17→19:43)
[2018-12-28] MEDS: LEVOTHYROXINE SODIUM 0.05 MG TABLET PO SCH (05:52)
[2018-12-28] MEDS: AMIODARONE HCL 200 MG TABLET PO SCH ×3 (05:52→21:41)
[2018-12-28 07:19] LABS: HEMOGLOBIN 7.2 g/dL (12.0-16.0); MEAN CORPUSCULAR HEMOGLOBIN 31 pg (27-31); MEAN CORPUSCULAR HGB CONC 34 % (32-36); MEAN CORPUSCULAR VOLUME 93 fL (79.0-98.0); PLATELET COUNT (AUTO) 53 K/uL (130-430); RED BLOOD CELL COUNT(AUTO) 2.29 MIL/uL (4.2-6.2); RED CELL DISTRIBUTION WIDTH 18.2 % (9.0-15.0)
[2018-12-28 07:26] LABS: HEMATOCRIT 21.2 % (36-48)
[2018-12-28 09:43] LABS: ATYPICAL LYMPHOCYTES % 42 % (0-0); BAND % (MANUAL) 3 % (0-6); BASOPHILS % (MANUAL) 0 % (0-2); EOSINOPHILS % (MANUAL) 0 % (0-7); LYMPHOCYTES % (MANUAL) 45 % (20-46); MONOCYTES % (MANUAL) 2 % (0-11)
[2018-12-28] MEDS: ALLOPURINOL 300 MG TABLET (ZYLOPRIM) PO SCH (09:58)
[2018-12-28] MEDS: PANTOPRAZOLE SODIUM 40 MG/VIAL (PROTONIX) IVP SCH (09:58)
[2018-12-28] MEDS: FUROSEMIDE 20 MG/2 ML VIAL IVP SCH ×2 (09:59→21:40)
[2018-12-28] MEDS: METOPROLOL SUCCINATE 50 MG TAB.SR.24H (TOPROL XL) PO SCH ×2 (10:00→21:41)
[2018-12-28] MEDS: POTASSIUM CHLORIDE 20 MEQ TAB.PRT.SR PO SCH (10:00)
[2018-12-28 10:01] VITALS: BP_SYST 120
[2018-12-28] MEDS: LOSARTAN POTASSIUM 50 MG TABLET (COZAAR) PO SCH (10:01)
[2018-12-28 12:00] VITALS: BP_SYST 123
[2018-12-28] MEDS: D5W 1,000 ML IV SCH (14:50)
[2018-12-28 16:50] VITALS: BP_SYST 126
--- NOTE | 2018-12-28 17:10 | NUR ---
Nutrition F/U (short note d/t high patient load) RD reviewed pt's current EMR including diet Hx, physician notes, nursing notes, pertinent labs/meds/procedures, care trends, and care activity. Pt was seen w/ TF infusing as per physician order. Per EMR records, pt has been tolerating TF well, no residuals. Pt is meeting optimal nutritional needs. No new RD recommendations.
--- NOTE | 2018-12-28 19:20 | NUR ---
OPENING NOTE Late entry due to patient care. Bedside report received from dayshift nurse. Patient received lying in bed, no s/s of acute distress noted. Breathing even and unlabored. IVF infusing well. Gtube stopped at this time. HOB slightly raised. Bilateral wrist restraints in place, no signs of injuries noted. Oakley attached, secured, and draining by gravity. SCDs attached and operating. Bed locked and at lowest position. Will continue to monitor.
[2018-12-28 20:00] VITALS: BP_SYST 121
--- NOTE | 2018-12-28 20:20 | NUR ---
CLOSING NOTE pt in bed resting, confused, even and unlabored breathing on room air, skin is intact, no redness noted, no swelling, no open wounds, bilateral soft restrains in place, skin intact, rerelease q 2 hr, able to move hand, F/C in place, paten, yellow urine. GT INTACT, NO PURULENT DRAINAGE NOTED, HOB 30 DEGREES ELEVATED, SAFETY MEASURES IN PLACE.
--- NOTE | 2018-12-28 21:41 | NUR ---
MEDPASS/RESIDUAL Scheduled medications administered at this time. Residual at 200 ml at this time. Tube feeding resumed, will continue to monitor residual. IVF infusing well. No s/s of acute distress noted. Breathing even and unlabored. All needs met at this time. Bed alarm on. Bed is locked and at lowest position. Soft wrist restraints in place. Will continue to monitor.
--- NOTE | 2018-12-28 23:00 | NUR ---
ROUNDS Patient in bed, sleeping comfortably. No signs of discomfort note. Chest rise and fall even bilaterally. IVF infusing well. Bed alarm on. Will continue to monitor.
[2018-12-29] MEDS: METOPROLOL TARTRATE 5 MG/5 ML VIAL IVP SCH ×4 (00:15→20:12)
[2018-12-29 00:38] VITALS: BP_SYST 103
--- NOTE | 2018-12-29 01:00 | NUR ---
ROUNDS Patient sleeping at this time. No signs of discomfort noted. Chest rise and fall even bilaterally. IVF and GTUBE infusing well. Oakley attached, secure and draining by gravity. Soft wrist restraints in place. SCDs attached and operating. All needs met. Will continue to monitor.
--- NOTE | 2018-12-29 03:00 | NUR ---
ROUNDS Patient in bed sleeping. No s/s of acute distress noted. Breathing is even and unlabored. IVF and GTUBE feeding infusing well. Bilateral soft wrist restraints in place, no signs of injuries noted. Oakley attached, secured, and draining by gravity. Bed is locked and at lowest position. Will continue to monitor.
[2018-12-29] MEDS: ALBUTEROL SULFATE 0.083% 2.5 MG/3 ML VIAL.NEB INH SCH ×4 (04:26→20:06)
[2018-12-29] MEDS: IPRATROPIUM BROM 0.5 MG/2.5 ML VIAL.NEB (ATROVENT) INH SCH ×4 (04:27→20:05)
--- NOTE | 2018-12-29 05:00 | NUR ---
ROUNDS Patient in bed, asleep, no signs of discomfort noted. Chest rise and fall even bilaterally. IVF and GTUBE infusing well. Bilateral soft wrist restraints in place. Bed alarm on. Bed is locked and at lowest position. Will continue to monitor.
[2018-12-29] MEDS: LEVOTHYROXINE SODIUM 0.05 MG TABLET PO SCH (06:15)
[2018-12-29] MEDS: AMIODARONE HCL 200 MG TABLET PO SCH ×3 (06:16→21:26)
--- NOTE | 2018-12-29 06:42 | NUR ---
CLOSING NOTE Patient in bed, sleeping, no s/s of acute distress noted. Breathing even and unlabored. HOB raised. IVF and GTUBE infusing well. IV site patent, no signs of infiltration or infection noted. Oakley attached, secured, and draining by gravity. Bilateral soft wrist restraints in place, no signs of injury noted. All needs met throughout shift. Fall, safety, and isolation precautions maintained throughout shift. Will continue to monitor until patient care is endorsed to oncoming dayshift nurse.
[2018-12-29 07:35] LABS: ALANINE AMINOTRANSFERASE 24 U/L (12-78); ALBUMIN 1.7 g/dL (3.4-4.8); ANION GAP 3 (5-15); ASPARTATE AMINOTRANSFERASE 21 U/L (10-37); CHLORIDE 97 mmol/L (98-107); CREATININE 1.67 mg/dL (0.55-1.30); GLUCOSE 120 mg/dL (70-99); POTASSIUM 5.3 mmol/L (3.5-5.1); SODIUM SERUM 129 mmol/L (136-145); TOTAL BILIRUBIN 0.4 mg/dL (0.0-1.0); UREA NITROGEN, BLOOD 44 mg/dL (8-21)
[2018-12-29 08:00] VITALS: BP_SYST 128
[2018-12-29] MEDS: ALLOPURINOL 300 MG TABLET (ZYLOPRIM) PO SCH (08:51)
[2018-12-29] MEDS: POTASSIUM CHLORIDE 20 MEQ TAB.PRT.SR PO SCH (08:51)
[2018-12-29] MEDS: METOPROLOL SUCCINATE 50 MG TAB.SR.24H (TOPROL XL) PO SCH ×2 (08:52→21:26)
[2018-12-29] MEDS: PANTOPRAZOLE SODIUM 40 MG/VIAL (PROTONIX) IVP SCH (08:53)
[2018-12-29] MEDS: LOSARTAN POTASSIUM 50 MG TABLET (COZAAR) PO SCH (08:53)
[2018-12-29] MEDS: FUROSEMIDE 20 MG/2 ML VIAL IVP SCH ×2 (08:53→21:25)
[2018-12-29] MEDS ORDERED: SODIUM POLYSTYRENE SULFONATE 15 GM/60 ML UDBTL GT ONE (09:00)
[2018-12-29 12:10] VITALS: BP_SYST 122
--- NOTE | 2018-12-29 13:53 | NUR ---
dr valera here and ordered to dc d5w. order carried out.
[2018-12-29 16:12] VITALS: BP_SYST 131
--- NOTE | 2018-12-29 19:02 | NUR ---
PT HAS BEEN STABLE THE WHOLE SHIFT, CONTINUED TO BE ON RESTRAINED THOUGH PT WAS QUITE MOST OF THE SHIFT BECAUSE WHEN PATIENT IS AWARE SHE PULL OUT ON ANYTHING SHE CAN GET HOLD OF. G-TUBE FEEDING CONTINUOUS, LESS THAN 400 RESIDUAL NOTED.
--- NOTE | 2018-12-29 19:15 | NUR ---
OPENING NOTES Bedside report received lying in bed, eyes closed, appears to be asleep. No s/s of acute distress noted. Breathing is even and unlabored. IV site patent, no signs of infiltration or infection noted. Gtube feeding infusing well. Bilateral soft wrist restraints in place, no signs of injury noted. Oakley attached, secured, and draining by gravity. Bed alarm on. Bed is locked and at lowest position. Will continue to monitor.
[2018-12-29 20:00] VITALS: BP_SYST 150
--- NOTE | 2018-12-29 21:00 | NUR ---
ROUNDS/MEDPASS Patient in bed, eyes closed, appears to be asleep. Scheduled medications administered at this time. HOB raised. No s/s of acute distress noted. Breathing even and unlabored. Gtube feeding infusing well, residual at 50 ml, patient tolerating well. Bilateral soft wrist restraints in place, no signs of injuries noted. Oakley attached, secured, and draining by gravity. All needs met at this time. Bed alarm on. Bed is locked and at lowest position. Will continue to monitor.
--- NOTE | 2018-12-29 23:00 | NUR ---
ROUNDS Patient in bed sleeping. No s/s of acute distress noted. Breathing even and unlabored. GTUBE infusing well. Bilateral soft wrist restraints in place, no signs of injuries noted. Oakley draining by gravity. All needs met. Bed alarm on. Bed locked and at lowest position. Will continue to monitor.
[2018-12-30 00:25] VITALS: BP_SYST 127
[2018-12-30] MEDS: METOPROLOL TARTRATE 5 MG/5 ML VIAL IVP SCH ×4 (00:45→18:25)
--- NOTE | 2018-12-30 01:00 | NUR ---
ROUNDS Patient asleep. No signs of discomfort noted. Chest rise and fall even bilaterally. All needs met. Bed alarm on. Will continue to monitor.
[2018-12-30] MEDS: IPRATROPIUM BROM 0.5 MG/2.5 ML VIAL.NEB (ATROVENT) INH SCH ×4 (01:34→19:05)
[2018-12-30] MEDS: ALBUTEROL SULFATE 0.083% 2.5 MG/3 ML VIAL.NEB INH SCH ×4 (01:35→19:05)
--- NOTE | 2018-12-30 03:00 | NUR ---
ROUNDS Patient in bed, no s/s of acute distress noted. Breathing even and unlabored. GTUBE infusing well. HOB raised. Bed alarm on. Bed is locked and at lowest position. Will continue to monitor.
--- NOTE | 2018-12-30 05:00 | NUR ---
ROUNDS Patient in bed asleep at this time. No signs of discomfort noted. Chest rise and fall even bilaterally, HOB raised. Bed alarm on. Will continue to monitor.
[2018-12-30] MEDS: LEVOTHYROXINE SODIUM 0.05 MG TABLET PO SCH (06:16)
[2018-12-30] MEDS: AMIODARONE HCL 200 MG TABLET PO SCH ×3 (06:16→21:36)
--- NOTE | 2018-12-30 06:39 | NUR ---
CLOSING NOTES Patient in bed, eyes closed, no s/s of acute distress noted. Breathing even and unlabored, HOB raised. Gtube feeding infusing well. IV site patent, no signs of infiltration or infection noted. Oakley attached, secured, and draining by gravity. Bilateral soft wrist restraints in place, no signs of injuries noted. All needs met throughout the shift. Fall, safety, and isolation precautions maintained throughout the shift. Will continue to monitor until patient care is endorsed to oncoming dayshift nurse.
[2018-12-30 07:14] LABS: HEMOGLOBIN 7.4 g/dL (12.0-16.0); MEAN CORPUSCULAR HEMOGLOBIN 32 pg (27-31); MEAN CORPUSCULAR HGB CONC 34 % (32-36); MEAN CORPUSCULAR VOLUME 93 fL (79.0-98.0); PLATELET COUNT (AUTO) 54 K/uL (130-430); RED BLOOD CELL COUNT(AUTO) 2.35 MIL/uL (4.2-6.2); RED CELL DISTRIBUTION WIDTH 17.8 % (9.0-15.0); WHITE BLOOD COUNT (AUTO) 4.5 K/uL (4.8-10.8)
[2018-12-30 07:40] LABS: ANION GAP 4 (5-15); CALCIUM 7.7 mg/dL (8.4-11.0); CHLORIDE 95 mmol/L (98-107); CREATININE 1.73 mg/dL (0.55-1.30); GLUCOSE 130 mg/dL (70-99); POTASSIUM 4.2 mmol/L (3.5-5.1); SODIUM SERUM 128 mmol/L (136-145); UREA NITROGEN, BLOOD 50 mg/dL (8-21)
[2018-12-30 07:51] VITALS: BP_SYST 120
--- NOTE | 2018-12-30 07:53 | NUR ---
INITIAL NOTE: RECEIVED REPORT FROM FACILITIES FLIGHT CHECK PILOT NURSE. PT IS CURRENTLY ASLEEP IN BED RECEIVING BREATHING TX. VITAL SIGNS STABLE. BILATERAL SOFT WRIST RESTRAINTS IN PLACE, SKIN AND PULSE CHECKED AND ASSESSED, NO ABNORMALITIES PRESENT. SCDS IN PLACE. SAFETY, REVERSE ISOLATION AND CONTACT ISOLATION IN PLACE. WILL CONTINUE PLAN OF CARE.
[2018-12-30 08:27] LABS: HEMATOCRIT 21.8 % (36-48)
[2018-12-30] MEDS: FUROSEMIDE 20 MG/2 ML VIAL IVP SCH ×2 (10:06→21:35)
[2018-12-30] MEDS: PANTOPRAZOLE SODIUM 40 MG/VIAL (PROTONIX) IVP SCH (10:06)
[2018-12-30] MEDS: POTASSIUM CHLORIDE 20 MEQ TAB.PRT.SR PO SCH (10:06)
[2018-12-30] MEDS: LOSARTAN POTASSIUM 50 MG TABLET (COZAAR) PO SCH (10:07)
[2018-12-30] MEDS: METOPROLOL SUCCINATE 50 MG TAB.SR.24H (TOPROL XL) PO SCH ×2 (10:08→21:35)
[2018-12-30] MEDS: ALLOPURINOL 300 MG TABLET (ZYLOPRIM) PO SCH (10:08)
[2018-12-30 11:08] LABS: BAND % (MANUAL) 2 % (0-6); LYMPHOCYTES % (MANUAL) 27 % (20-46)
[2018-12-30 11:09] LABS: ATYPICAL LYMPHOCYTES % 64 % (0-0); BASOPHILS % (MANUAL) 0 % (0-2); EOSINOPHILS % (MANUAL) 0 % (0-7); MONOCYTES % (MANUAL) 2 % (0-11)
[2018-12-30] MEDS: NACL 0.9% 1,000 ML IV SCH (12:27)
[2018-12-30 12:45] VITALS: BP_SYST 117
[2018-12-30 16:15] VITALS: BP_SYST 135
--- NOTE | 2018-12-30 18:54 | NUR ---
CLOSING NOTES: PT REMAINED STABLE DURING SHIFT WITH NO MAJOR CHANGE IN CONDITION. VITAL SIGNS WERE STABLE THROUGHOUT SHIFT. TURNED Q2HR, CHANGED UPON SOILING. BILATERAL SOFT WRIST RESTRAINTS IN PLACE, SKIN INTEGRITY ASSESSED. SAFETY PRECAUTIONS IN PLACE, CALL LIGHT WITHIN REACH. WILL ENDORSE CARE TO GLUTEN SETTLING TENDER NURSE.
--- NOTE | 2018-12-30 19:30 | NUR ---
OPENING NOTES Patient is resting, no signs of acute respiratory distress, RA. Restraints in place, Q2H 10 min release will be done. IVF running, dressings c/d/i. G tube feeding running, intact, residual of 150 ml. Oakley catheter intact, draining by gravity, no kinks or loops. Call light within reach, bed alarm on, bed at lowest position. All needs met throughout shift. Will endorse care to oncoming shift.
--- NOTE | 2018-12-30 20:30 | NUR ---
THRASHER CATH: FR Thrasher catheter with 10 cc bulb inserted with use of sterile technique. Bulb inflated with 10 cc sterile water. Immediate return clear yellow urine noted. Bedside drainage bag placed below level of bladder. Pt tolerated procedure well. Will continue to monitor.
[2018-12-31 00:24] VITALS: BP_SYST 150
[2018-12-31] MEDS: ALBUTEROL SULFATE 0.083% 2.5 MG/3 ML VIAL.NEB INH SCH ×4 (00:50→19:50)
[2018-12-31] MEDS: IPRATROPIUM BROM 0.5 MG/2.5 ML VIAL.NEB (ATROVENT) INH SCH ×4 (00:51→19:50)
[2018-12-31] MEDS: METOPROLOL TARTRATE 5 MG/5 ML VIAL IVP SCH ×4 (01:00→19:00)
[2018-12-31] MEDS: NACL 0.9% 1,000 ML IV SCH ×2 (01:29→18:03)
[2018-12-31] MEDS: LEVOTHYROXINE SODIUM 0.05 MG TABLET PO SCH (06:11)
[2018-12-31] MEDS: AMIODARONE HCL 200 MG TABLET PO SCH ×3 (06:13→22:11)
--- NOTE | 2018-12-31 06:50 | NUR ---
CLOSING NOTES Patient is resting, no signs of acute respiratory distress, RA. IVF running, dressings c/d/i. G tube feeding running, intact, residual of 130 ml. Oakley cathter intact, draining by gravity, no kinks or loops. Call light within reach, bed alarm on, bed at lowest position. All needs met throughout shift. Will endorse care to oncoming shift. Addendum: 12/31/18 at 0652 by Mariya Ngo RN Soft restraints in place, Q2H checks done throughout shift.
[2018-12-31 07:43] VITALS: BP_SYST 147
[2018-12-31 08:00] VITALS: BP_SYST 147
--- NOTE | 2018-12-31 08:00 | NUR ---
initial notes rec patient awake and confused with dipti restraint on. ivf infusing well on the l ac. no infiltration noted. gt feeding emily well. no residual noted. bed to the lowest position and side rails up and locked. call light within reached . turned repositioned for comfort.
[2018-12-31 08:19] LABS: MEAN CORPUSCULAR HEMOGLOBIN 31 pg (27-31); MEAN CORPUSCULAR HGB CONC 34 % (32-36); MEAN CORPUSCULAR VOLUME 92 fL (79.0-98.0); PLATELET COUNT (AUTO) 51 K/uL (130-430); RED BLOOD CELL COUNT(AUTO) 2.23 MIL/uL (4.2-6.2); RED CELL DISTRIBUTION WIDTH 17.8 % (9.0-15.0); WHITE BLOOD COUNT (AUTO) 4.1 K/uL (4.8-10.8)
[2018-12-31 08:26] LABS: ANION GAP 6 (5-15); CALCIUM 7.5 mg/dL (8.4-11.0); CHLORIDE 99 mmol/L (98-107); CREATININE 1.61 mg/dL (0.55-1.30); GLUCOSE 130 mg/dL (70-99); POTASSIUM 4.1 mmol/L (3.5-5.1); SODIUM SERUM 133 mmol/L (136-145); UREA NITROGEN, BLOOD 47 mg/dL (8-21)
[2018-12-31] MEDS: FUROSEMIDE 20 MG/2 ML VIAL IVP SCH ×2 (08:27→22:10)
[2018-12-31] MEDS: PANTOPRAZOLE SODIUM 40 MG/VIAL (PROTONIX) IVP SCH (08:28)
[2018-12-31] MEDS: POTASSIUM CHLORIDE 20 MEQ TAB.PRT.SR PO SCH (08:28)
[2018-12-31] MEDS: LOSARTAN POTASSIUM 50 MG TABLET (COZAAR) PO SCH (08:28)
[2018-12-31] MEDS: ALLOPURINOL 300 MG TABLET (ZYLOPRIM) PO SCH (08:29)
[2018-12-31] MEDS: METOPROLOL SUCCINATE 50 MG TAB.SR.24H (TOPROL XL) PO SCH ×2 (08:29→22:12)
[2018-12-31 08:35] LABS: HEMATOCRIT 21.6 % (36-48)
[2018-12-31 09:35] LABS: ATYPICAL LYMPHOCYTES % 60 % (0-0); BASOPHILS % (MANUAL) 0 % (0-2); EOSINOPHILS % (MANUAL) 0 % (0-7); LYMPHOCYTES % (MANUAL) 31 % (20-46); MONOCYTES % (MANUAL) 1 % (0-11)
[2018-12-31 12:30] VITALS: BP_SYST 137
[2018-12-31] MEDS ORDERED: BARIUM SULFATE 135 ML SUSP.RECON (E-Z-HD) PO ONE (13:28)
--- NOTE | 2018-12-31 14:21 | NUR ---
S.T. SWALLOW EVAL AND VIDEOFLUOROSCOPY (VFSS) SWALLOW EVAL COMPLETED THIS AM. PT IS VERY CONFUSED. INCONSISTENT COUGHING NOTED W/ SWALLOWING INDICATING RISK FOR ASPIRATION. REC: VFSS. RECEIVED ORDER AND WILL PROCEED. G8996 CK G8997 CK G8998 CK NOMS LEVEL 4 VFSS COMPLETED THIS PM. PT CONTINUES TO BE VERY CONFUSED. PT PRESENTS W/ GENERALLY FUNCTIONAL OROPHARYNGEAL SWALLOW WITH TIMELY BOLUS TRANSFER AND TIMELY SWALLOW INITIATION WITH NO RESIDUE AND NO PENETRATION/ASPIRATION. COUGHING NOTED BUT NOT RELATED TO PENETRATION/ASPIRATION. 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 REC: 1) CONTINUE GT FEEDING. 2) MAY HAVE P.O. (MECH SOFT FINELY CHOPPED, THIN LIQUIDS) FOR ORAL GRATIFICATION. 3) FEED ONLY WHEN PT IS FULLY AWAKE WITH 100% SUPERVISION. 3) ADJUST TUBE FEEDING WHEN P.O. IS INCREASED. NURSE SCOTTY NOTIFIED. G8996 CI G8997 CI G8998 CI NOMS LEVEL 6
--- NOTE | 2018-12-31 14:24 | NUR ---
DC Planning: Updated Raissa Toure CM at [facility] # [phone] still pending finding an accepting snf. The pt is off ABX and OFF ANTIBIOTICS. HIGH RISK FOR NEUTROPENIC SEPSIS. C/W NEUTROPENIC PRECAUTIONS FOR NOW. Per dr. Pillai: " ANIL COLONIZATION, MRSA COLONIZATION with Plan C/W CURRENT CARE. C/W NEUTROPENIC ISOLATION (ANC LESS THAN 500). PROG POOR." >> Per Raissa, the pt is approved for inpatient APR/DRG until 12/27/18. She will need more clinical update for further approval -- [facility] dept made aware.
--- NOTE | 2018-12-31 15:00 | NUR ---
rounds pt did pass the video swallow and will notify dr manrique. turned repositioned for comfort.
[2018-12-31 16:30] VITALS: BP_SYST 141
--- NOTE | 2018-12-31 19:30 | NUR ---
OPENING NOTES Patient is resting, no signs of acute respiratory distress, RA, HOB elevated. Restraints in place, Q2H 10 min release will be done. IVF running, dressings c/d/i. G tube feeding running, intact, residual of 60 ml, abdominal binder in place. Oakley catheter intact, draining by gravity, no kinks or loops noted, clear, yellow urine noted. Call light within reach, bed alarm on, bed at lowest position. Will continue to monitor.
--- NOTE | 2018-12-31 19:42 | NUR ---
closing notes notified dr manrique re video swallow eval and with orders. no sob noted. call light within reached. dipti restrains in placed. asleep at this time.
[2018-12-31 20:00] VITALS: BP_SYST 143
[2018-12-31] MEDS ORDERED: METOPROLOL TARTRATE 5 MG/5 ML VIAL IVP PRN (20:30)
--- NOTE | 2019-01-01 00:15 | NUR ---
Patient is still restless, no SOB noted. Restraints in place, reoriented patient to room and plan of care. Will continue to monitor.
[2019-01-01 00:16] VITALS: BP_SYST 136
[2019-01-01] MEDS: ALBUTEROL SULFATE 0.083% 2.5 MG/3 ML VIAL.NEB INH SCH ×4 (00:40→20:14)
[2019-01-01] MEDS: IPRATROPIUM BROM 0.5 MG/2.5 ML VIAL.NEB (ATROVENT) INH SCH ×4 (00:40→20:14)
--- NOTE | 2019-01-01 02:14 | NUR ---
Patient is resting, eyes closed. Will continue to monitor.
--- NOTE | 2019-01-01 04:20 | NUR ---
Patient turned and skin care performed. Foam dressings at elbows provided. No open skin. Will continue to monitor.
[2019-01-01] MEDS: NACL 0.9% 1,000 ML IV SCH (06:06)
[2019-01-01] MEDS: LEVOTHYROXINE SODIUM 0.05 MG TABLET PO SCH (06:07)
[2019-01-01] MEDS: AMIODARONE HCL 200 MG TABLET PO SCH ×3 (06:07→21:29)
[2019-01-01 06:59] LABS: ANION GAP 5 (5-15); CALCIUM 7.2 mg/dL (8.4-11.0); CHLORIDE 100 mmol/L (98-107); CREATININE 1.57 mg/dL (0.55-1.30); GLUCOSE 119 mg/dL (70-99); POTASSIUM 4.5 mmol/L (3.5-5.1); SODIUM SERUM 131 mmol/L (136-145); UREA NITROGEN, BLOOD 43 mg/dL (8-21)
--- NOTE | 2019-01-01 07:30 | NUR ---
CLOSING NOTES Patient is resting, no signs of acute respiratory distress, RA, HOB elevated. Restraints in place, Q2H 10 min release done throughout shift. IVF running, dressings c/d/i. G tube feeding running, intact, residual of 10 ml, abdominal binder in place. Oakley catheter intact, draining by gravity, no kinks or loops noted, clear, yellow urine noted. Call light within reach, bed alarm on, bed at lowest position. All needs met throughout shift. Will endorse care to oncoming shift.
[2019-01-01 08:00] VITALS: BP_SYST 129
[2019-01-01] MEDS: PANTOPRAZOLE SODIUM 40 MG/VIAL (PROTONIX) IVP SCH (09:53)
[2019-01-01] MEDS: POTASSIUM CHLORIDE 20 MEQ TAB.PRT.SR PO SCH (09:53)
[2019-01-01] MEDS: LOSARTAN POTASSIUM 50 MG TABLET (COZAAR) PO SCH (09:54)
[2019-01-01] MEDS: METOPROLOL SUCCINATE 50 MG TAB.SR.24H (TOPROL XL) PO SCH ×2 (09:55→21:30)
[2019-01-01] MEDS: FUROSEMIDE 20 MG/2 ML VIAL IVP SCH ×2 (09:56→21:29)
[2019-01-01 12:44] VITALS: BP_SYST 135
[2019-01-01] MEDS: ALLOPURINOL 300 MG TABLET (ZYLOPRIM) PO SCH (15:56)
[2019-01-01 16:14] VITALS: BP_SYST 145
--- NOTE | 2019-01-01 18:30 | NUR ---
closing notes turned repositioned for comfort. dipti restraints in place. gt feeding emily well. no residual noted. ivf infusing well/. seen by dr may and dr alatorre. no sob noted.
--- NOTE | 2019-01-01 19:53 | NUR ---
Pt is awake and non-verbal. No acute distress noted at this time. IVF of NS is infusing well in LAC at 80ml/hr without any signs of infiltration. GT Feeding of Jevity 1.5 is infusing well at 60ml/hr. Bilateral soft wrist restraints are on and no circulatory impairment noted. Oakley cath to gravity drainage is draining clear yellowish urine. Fall, Contact/Reverse Isolation and safety precautions are in place.
[2019-01-01 20:00] VITALS: BP_SYST 135
--- NOTE | 2019-01-01 22:00 | NUR ---
Pt is tolerating GT Feeding well. No distress noted. IVF is infusing well in LAC. Fall and safety precautions are in place.
--- NOTE | 2019-01-02 | NUR ---
Pt is still confused and moves around in bed with her feet hanging over side rails. Pt has been repositioned in bed multiple times. Bilateral soft wrist restraints are on and no circulatory impairment noted. Pt is tolerating GT tube feeding well. IVF is infusing well in LAC. Fall and safety precautions are in place.
[2019-01-02 01:08] VITALS: BP_SYST 147
[2019-01-02] MEDS: IPRATROPIUM BROM 0.5 MG/2.5 ML VIAL.NEB (ATROVENT) INH SCH ×4 (01:20→20:33)
[2019-01-02] MEDS: ALBUTEROL SULFATE 0.083% 2.5 MG/3 ML VIAL.NEB INH SCH ×4 (01:21→20:32)
--- NOTE | 2019-01-02 02:00 | NUR ---
Pt is tolerating GT feeding well. No distress noted at this time. Pt is still moving around in bed. Pt has bilateral soft wrist restraints on and no circulatory impairment noted. Fall and safety precautions are in place. Bed is in the lowest and locked positions.
[2019-01-02] MEDS: NACL 0.9% 1,000 ML IV SCH ×3 (02:15→11:43)
--- NOTE | 2019-01-02 04:00 | NUR ---
IVF and GT Feeding are infusing well. Fall and safety precautions are in place.
[2019-01-02] MEDS: LEVOTHYROXINE SODIUM 0.05 MG TABLET PO SCH (06:05)
[2019-01-02] MEDS: AMIODARONE HCL 200 MG TABLET PO SCH ×3 (06:06→22:09)
--- NOTE | 2019-01-02 06:30 | NUR ---
Pt is awake and resting comfortably in bed. All pt's needs were attended to. No fall or injury noted this shift. Fall and safety precautions are in place. IVF and GT Feeding are infusing well. Will endorse to day shift nurse.
[2019-01-02 07:23] LABS: MEAN CORPUSCULAR HEMOGLOBIN 31 pg (27-31); MEAN CORPUSCULAR HGB CONC 33 % (32-36); MEAN CORPUSCULAR VOLUME 94 fL (79.0-98.0); PLATELET COUNT (AUTO) 50 K/uL (130-430); RED CELL DISTRIBUTION WIDTH 17.6 % (9.0-15.0); WHITE BLOOD COUNT (AUTO) 4.9 K/uL (4.8-10.8)
[2019-01-02 07:45] LABS: ANION GAP 7 (5-15); CALCIUM 7.7 mg/dL (8.4-11.0); CHLORIDE 103 mmol/L (98-107); CREATININE 1.63 mg/dL (0.55-1.30); GLUCOSE 145 mg/dL (70-99); POTASSIUM 4.5 mmol/L (3.5-5.1); RED BLOOD CELL COUNT(AUTO) 1.84 MIL/uL (4.2-6.2); SODIUM SERUM 134 mmol/L (136-145); UREA NITROGEN, BLOOD 42 mg/dL (8-21)
[2019-01-02 07:47] LABS: HEMATOCRIT 17.2 % (36-48); HEMOGLOBIN 5.8 g/dL (12.0-16.0)
--- NOTE | 2019-01-02 07:50 | NUR ---
OPENING NOTE RECEIVED PATIENT AWAKE IN BED. ALERT. NO S/SX PAIN. NO ACUTE DISTRESS. NO SOB. RESPIRATION EVEN AND UNLABORED. SKIN WARM AND DRY TO TOUCH. IV INTACT AND PATENT; ELIS IVF. HOB UP. GTUBE INTACT AND PATENT; ELIS GTF. NO N/V NOTED. THRASHER CATH INTACT AND PATENT DRAINING YELLOW URINE. BILAT WRIST RESTRAINTS IN PLACE PER PROTOCOL. ALL NEEDS MET. CONT ON CONTACT/ASPIRATION/SAFETY AND FALL PRECAUTIONS. CALL LIGHT IN REACH. CONT TO MONITOR WITH FREQUENT VISUAL CHECKS
[2019-01-02 08:00] VITALS: BP_SYST 112
[2019-01-02] MEDS: PANTOPRAZOLE SODIUM 40 MG/VIAL (PROTONIX) IVP SCH (09:36)
[2019-01-02] MEDS: POTASSIUM CHLORIDE 20 MEQ TAB.PRT.SR PO SCH (09:37)
[2019-01-02] MEDS: FUROSEMIDE 20 MG/2 ML VIAL IVP SCH ×2 (09:37→22:09)
[2019-01-02] MEDS: LOSARTAN POTASSIUM 50 MG TABLET (COZAAR) PO SCH (09:38)
[2019-01-02] MEDS: METOPROLOL SUCCINATE 50 MG TAB.SR.24H (TOPROL XL) PO SCH ×2 (09:38→22:10)
[2019-01-02] MEDS: ALLOPURINOL 300 MG TABLET (ZYLOPRIM) PO SCH (09:38)
--- NOTE | 2019-01-02 09:50 | NUR ---
SEEN AND EXAMINED BY AT BEDSIDE. INFORMED MD PATIENT'S HGB 5.8/HCT 17.2/ PLT 50 AND ORDERED PRBC PER STANDING ORDER MD NUR.
[2019-01-02 09:51] LABS: LYMPHOCYTES % (MANUAL) 36 % (20-46)
[2019-01-02 09:52] LABS: BASOPHILS % (MANUAL) 0 % (0-2); EOSINOPHILS % (MANUAL) 0 % (0-7); MONOCYTES % (MANUAL) 56 % (0-11)
[2019-01-02 12:29] VITALS: BP_SYST 134
[2019-01-02 13:05] VITALS: BP_SYST 115
--- NOTE | 2019-01-02 13:08 | NUR ---
BT INITIATION: Consent signed agreeing to administration of blood. Blood has been type and crossmatched. Blood sent from blood bank. Information on unit of blood checked against patient wristband at bedside by two nurses. All information matches. Patient or responsible green party informed of potential complications associated with blood transfusion. Informed of possible transfusion reaction symptoms. Aware of need to notify nurse at once of itching, shortness of breath, flushing, feeling of impending doom, or other symptoms not previously present. Vital signs taken within 5 minutes prior to initiation of transfusion. RN will remain with patient for first 15 minutes of transfusion at which time vital signs will be re-assessed.
[2019-01-02 13:23] VITALS: BP_SYST 125
--- NOTE | 2019-01-02 15:59 | NUR ---
Nutrition F/U (short note d/t high patient load) RD reviewed pt's current EMR including diet Hx, physician notes, nursing notes, pertinent labs/meds/procedures, care trends, and care activity. Pt was seen w/ TF hung but not infusing. Per RN, pt has been sliding downward in bed, and has not been able to sit up elevated for long periods of time, so TF was held to prevent aspiration. Otherwise, pt had been tolerating TF well without any s/s of intolerance per RN report. Pt also is receiving mechanical soft, finely chopped diet for oral grat, however, per RN, pt is not taking in much -- consistent w/ negligible PO intake records per EMR. Pt was also seen receiving blood at time of RD visit -- RN reported that source of bleeding is not yet know. Pt remains moderate risk; no new RD recommendations.
[2019-01-02 16:00] VITALS: BP_SYST 117; BP_SYST 118; BP_SYST 129
--- NOTE | 2019-01-02 16:00 | NUR ---
BT COMPLETED BT COMPLETED WITH NO S/SX ASE NOTED. PATIENT STABLE. NO ACUTE DISTRESS. NO SOB. ALL NEEDS MET. CONT TO MONITOR
--- NOTE | 2019-01-02 16:16 | NUR ---
SS Note: Lukasz Calderon from [employer] emailed for possible [employer] mally.
--- NOTE | 2019-01-02 19:20 | NUR ---
OPENING NOTE Bedside report received from dayshift nurse. Patient received, eyes closed, appears to be asleep. No s/s of acute distress noted. Breathing even and unlabored. IVF and Gtube infusing well. IV site patent, no signs of infiltration or infection noted. Soft wrist restraints in place bilaterally, no signs of injuries noted. HOB raised. Oakley attached, secured, and draining by gravity. Call light with patient. Bed alarm on. Will continue to monitor.
--- NOTE | 2019-01-02 19:20 | NUR ---
CLOSING NOTE PATIENT STABLE. AWAKE TALKING TO GRANDSON AT BEDSIDE. NO S/SX PAIN. NO ACUTE DISTRESS. NO SOB. HOB UP. GTUBE INTACT AND PATENT, ELIS WELL. IV INTACT AND PATENT, ELIS IVF. THRASHER CATH INTACT AND PATENT DRAINING YELLOW URINE. RESPOSITIONED FOR COMFORT. ALL NEEDS MET. KALIE LIGHT IN REACH. ENDORSED CARE TO MIRELA AND ADMINISTRATION OF 1 MORE UNIT OF PRBC.
--- NOTE | 2019-01-02 21:30 | NUR ---
ROUNDS Patient in bed, eyes closed, appears to be asleep. No signs of discomfort noted. IVF and Gtube infusing well. HOB raised. Bilateral soft wrist restraints in place. Oakley attached, secured, and draining by gravity. All needs met at this time. Bed alarm on. Bed is locked and at lowest position. Will continue to monitor.
--- NOTE | 2019-01-03 00:30 | NUR ---
BLOOD TRANSFUSION Blood transfusion started at this time, infusing well. Will monitor patient throughout.
[2019-01-03] MEDS: IPRATROPIUM BROM 0.5 MG/2.5 ML VIAL.NEB (ATROVENT) INH SCH ×4 (00:50→20:02)
[2019-01-03] MEDS: ALBUTEROL SULFATE 0.083% 2.5 MG/3 ML VIAL.NEB INH SCH ×4 (00:51→20:03)
--- NOTE | 2019-01-03 01:30 | NUR ---
ROUNDS Patient in bed sleeping. NO s/s of acute distress noted. Vitals within normal limits. Tolerating blood transfusion well. All needs met at this time. Bed alarm on. Will continue to monitor.
[2019-01-03 02:13] VITALS: BP_SYST 124
--- NOTE | 2019-01-03 04:02 | NUR ---
FINISHED BLOOD Blood transfusion ended at this time, patient tolerated well, VSS, no reactions noted. IVF infusing at this time, Gtube infusing well. All needs met. Bed alarm on. Will continue to monitor.
--- NOTE | 2019-01-03 06:15 | NUR ---
CLOSING NOTES/PULLED OUT THRASHER Patient in bed, no s/s of acute distress noted. Breathing is even and unlabored. HOB raised. IVF and Gtube infusing well, IV site patent, no signs of infiltration or infection noted. Bilateral soft wrist restraints in place, no signs of injuries noted. Thrasher pulled out at this time, catheter fully intact, balloon inflated, no signs of bleeding or void at this time. Charge nurse made aware. Will endorse to dayshift, will continue to monitor for output. All needs met throughout shift. Fall, safety, and isolation precautions maintained throughout shift. Will continue to monitor until patient care is endorsed to oncoming dayshift nurse.
[2019-01-03] MEDS: LEVOTHYROXINE SODIUM 0.05 MG TABLET PO SCH (06:17)
[2019-01-03] MEDS: AMIODARONE HCL 200 MG TABLET PO SCH ×3 (06:17→20:58)
[2019-01-03 08:00] VITALS: BP_SYST 155
--- NOTE | 2019-01-03 08:00 | NUR ---
RN OPENING NOTE PATIENT IS RESTING IN BED, PATIENT WAS ASSESED, VITAL SIGNS ARE STABLE. PATIENT FLACC SCALE SHOWS PAIN NOT IN PAIN, PATIENT WAS RESPOSITIONED. RESTRAINTS WERE RELEASED FOR 10 MIN, WILL CONTINUE TO MONITOR.
[2019-01-03 08:25] LABS: HEMATOCRIT 22.7 % (36-48); HEMOGLOBIN 7.9 g/dL (12.0-16.0); MEAN CORPUSCULAR HEMOGLOBIN 32 pg (27-31); MEAN CORPUSCULAR HGB CONC 35 % (32-36); MEAN CORPUSCULAR VOLUME 91 fL (79.0-98.0); PLATELET COUNT (AUTO) 59 K/uL (130-430); RED BLOOD CELL COUNT(AUTO) 2.49 MIL/uL (4.2-6.2); RED CELL DISTRIBUTION WIDTH 17.1 % (9.0-15.0); WHITE BLOOD COUNT (AUTO) 5.8 K/uL (4.8-10.8)
--- NOTE | 2019-01-03 10:00 | NUR ---
RN NOTE PATIENT WAS GIVEN HER MEDICATION AND REPOSITIONED, RESTRAINS WERE RELEASED
[2019-01-03 10:01] LABS: BAND % (MANUAL) 4 % (0-6); BASOPHILS % (MANUAL) 0 % (0-2); EOSINOPHILS % (MANUAL) 0 % (0-7); MONOCYTES % (MANUAL) 1 % (0-11)
[2019-01-03 10:05] LABS: ATYPICAL LYMPHOCYTES % 52 % (0-0); LYMPHOCYTES % (MANUAL) 35 % (20-46)
[2019-01-03] MEDS: POTASSIUM CHLORIDE 20 MEQ TAB.PRT.SR PO SCH (10:08)
[2019-01-03] MEDS: METOPROLOL SUCCINATE 50 MG TAB.SR.24H (TOPROL XL) PO SCH ×2 (10:09→20:58)
[2019-01-03] MEDS: PANTOPRAZOLE SODIUM 40 MG/VIAL (PROTONIX) IVP SCH (10:10)
[2019-01-03] MEDS: LOSARTAN POTASSIUM 50 MG TABLET (COZAAR) PO SCH (10:10)
[2019-01-03] MEDS: ALLOPURINOL 300 MG TABLET (ZYLOPRIM) PO SCH (10:10)
[2019-01-03] MEDS: FUROSEMIDE 20 MG/2 ML VIAL IVP SCH ×2 (10:11→20:55)
--- NOTE | 2019-01-03 12:00 | NUR ---
RN NOTE PATIENT WAS SERVED HER LUNCH, SUPERVISING FLOORPERSON IS FEEDING PATIENT, PATIENT WAS REPOSITIONED, RESTRAINS WERE RELEASED FOR 10 MIN
[2019-01-03 12:25] VITALS: BP_SYST 134
[2019-01-03 13:32] VITALS: BP_SYST 155
--- NOTE | 2019-01-03 14:00 | NUR ---
RN NOTE , PATIENT WAS REPOSITIONED, RESTRAINS WERE RELEASED FOR 10 MIN
[2019-01-03] MEDS: NACL 0.9% 1,000 ML IV SCH (15:10)
--- NOTE | 2019-01-03 16:00 | NUR ---
RN NOTE PATIENT WAS REPOSITIONED, RESTRAINS WERE RELEASED FOR 10 MIN
[2019-01-03 16:20] VITALS: BP_SYST 140
--- NOTE | 2019-01-03 18:00 | NUR ---
RN NOTE PATIENT WAS SERVED HER DINNER, SENIOR MANUFACTURING ENGINEER IS FEEDING PATIENT, PATIENT WAS REPOSITIONED, RESTRAINS WERE RELEASED FOR 10 MIN HER G TUBE WAS FLUSHED WITH 200 ML OF FREE WATER. WILL CONTINUE TO MONITOR AND WILL ENDORSE TO NEXT SHIFT.
--- NOTE | 2019-01-03 19:15 | NUR ---
OPENING NOTES Late entry due to patient care. Bedside report received from dayshift nurse. Patient received in bed, HOB raised 80%, being fed by COURTESY VAN DRIVER, patient tolerating well. IVF infusing well. Oakley attached, secured, and draining by gravity. Bilateral soft wrist restraints in place, no signs of injuries noted. Bed alarm on. Bed is locked and at lowest position. Will continue to monitor.
[2019-01-03 20:00] VITALS: BP_SYST 132
--- NOTE | 2019-01-03 21:00 | NUR ---
ROUNDS Patient in bed, sleeping. No signs of discomfort noted. HOB raised. IVF and GTUBE infusing well. Bilateral soft wrist restraints in place, no injuries noted. Oakley attached, secured, and draining by gravity. All needs met. Bed alarm on. Will continue to monitor.
--- NOTE | 2019-01-03 23:00 | NUR ---
ROUNDS Patient in bed sleeping. No s/s of acute distress. Breathing even and unlabored. All needs met at this time. Bed alarm on. Bed is locked and at lowest position. Will continue to monitor.
[2019-01-04 00:15] VITALS: BP_SYST 123
--- NOTE | 2019-01-04 01:00 | NUR ---
ROUNDS Patient in bed sleeping at this time. HOB raised, IVF and GTUBE infusing well. No signs of discomfort. Bilateral soft wrist restraints in place, no signs of injuries noted. Oakley attached, secured, and draining by gravity. Bed alarm on. Bed is locked and at lowest position. Will continue to monitor.
[2019-01-04] MEDS: IPRATROPIUM BROM 0.5 MG/2.5 ML VIAL.NEB (ATROVENT) INH SCH ×4 (01:18→19:52)
[2019-01-04] MEDS: ALBUTEROL SULFATE 0.083% 2.5 MG/3 ML VIAL.NEB INH SCH ×4 (01:18→19:52)
--- NOTE | 2019-01-04 03:00 | NUR ---
ROUNDS Patient in bed asleep at this time. No s/s of acute distress noted. Breathing is even and unlabored. All needs met. Bed alarm on. Will continue to monitor.
--- NOTE | 2019-01-04 05:00 | NUR ---
ROUNDS Patient in bed sleeping. No signs of discomfort noted. Chest rise and fall even bilaterally. HOB raised, GTUBE and IVF infusing well. All needs met at this time. Bed alarm on. Will continue to monitor.
[2019-01-04] MEDS: LEVOTHYROXINE SODIUM 0.05 MG TABLET PO SCH (06:05)
[2019-01-04] MEDS: AMIODARONE HCL 200 MG TABLET PO SCH ×3 (06:05→23:10)
--- NOTE | 2019-01-04 06:33 | NUR ---
CLOSING NOTES Patient in bed sleeping at this time. No s/s of acute distress noted. Breathing even and unlabored. HOB raised. IVF and GTUBE infusing well. IV site is patent, no signs of infiltration or infection noted. Bilateral soft wrist restraints in place, no signs of injuries noted. Oakley attached, secured, and draining by gravity. All needs met throughout the shift. Fall, safety, and isolation precautions maintained throughout the shift. Will continue to monitor until patient care is endorsed to oncoming dayshift nurse.
--- NOTE | 2019-01-04 08:00 | NUR ---
RN INITIAL NOTES RECEIVED PATIENT IN BED AWAKE AND VERBAL BUT VERY FEW AND SHORT WORDS, HOB SLIGTHLY ELEVATED WITH BILAT WRIST RESTRAIN WITH THRASHER CATH INTACT YELLOW URINE OUTPUT WITH BILAT WRIST RESTRAIN WITH GTUBE RUNNING AND TOLERATED , PATIENT OPENS EYES INTERMIITENTLY AND SAFETY ENSURED
--- NOTE | 2019-01-04 09:30 | NUR ---
RADIATION CONTROL SPECIALIST SEEN BY DR RICHARDSON DISCUSSED PATIENT WITH SHORTNESS OF BREATHING WITH O2 SAT ON 92%-93% IN ROOM AIR , INFORMED DR RICHARDSON THAT PATIENT HAD NOT ANY PO FOR NOW SHE WAS SLEEPY , PER DR RICHARDSON TO PREVENT ANY ASPIRATION DO NOT FEED THE PATIENT FOR NOW , O2 INH ADMINISTERED AND MONITORED SATING AT 96% , FEEDING NO RESIDUAL NOTED AND IN PLACE , WILL CONT TO MONITOR PATIENT
[2019-01-04] MEDS: PANTOPRAZOLE SODIUM 40 MG/VIAL (PROTONIX) IVP SCH (09:54)
[2019-01-04] MEDS: POTASSIUM CHLORIDE 20 MEQ TAB.PRT.SR PO SCH (09:54)
[2019-01-04] MEDS: METOPROLOL SUCCINATE 50 MG TAB.SR.24H (TOPROL XL) PO SCH ×2 (09:55→23:10)
[2019-01-04] MEDS: ALLOPURINOL 300 MG TABLET (ZYLOPRIM) PO SCH (09:55)
[2019-01-04] MEDS: LOSARTAN POTASSIUM 50 MG TABLET (COZAAR) PO SCH (09:56)
[2019-01-04] MEDS: FUROSEMIDE 20 MG/2 ML VIAL IVP SCH ×2 (09:58→23:09)
[2019-01-04] MEDS: NACL 0.9% 1,000 ML IV SCH ×2 (10:30→23:24)
[2019-01-04 11:02] VITALS: BP_SYST 130
--- NOTE | 2019-01-04 12:00 | NUR ---
BRICKLAYER TENDER VISIT PATIENT SEEN BY BRICKLAYER TENDER VISIT DISCUSSED PATIENT CONDITION REG EPISODES OF SHORNESS OF BREATH WHEN AWKE SATING 96% AT THIS TIME WITH O2 @ 2 L/MIN
[2019-01-04 12:25] VITALS: BP_SYST 112
[2019-01-04 16:20] VITALS: BP_SYST 110
--- NOTE | 2019-01-04 17:00 | NUR ---
DR ROSEN VISIT PATIENT SEEN BY DR GLOVER INFORMED PATIENT WITH EPISODES OF SHORTNESS OF BREATH ,ALSO WITH ABDOMINAL DISTENTION , INFORMED PER HAT BLOCKING OPERATOR NPO FOR NOW , DR ROSEN SAID TO ORDER KUB , EXPLAINED TO THE FAMILY AT BEDSIDE , WILL CONT TO MONITOR AND WILL DO KUB
--- NOTE | 2019-01-04 18:00 | NUR ---
KUB FOLLOW UP PATIENT KUB FOLLOWED UP WITH XRAY SPOKE WITH WATSON HE SAID HE HAS TO DO THE ER /STAT FOR NOW BUT KUB WILL BE DONE REYNA
--- NOTE | 2019-01-04 19:30 | NUR ---
ENDORSEMENT ENDORSED TO NEXT SHIFT CONT WITH CARE , STILL WITH ABDOMINAL DISTENTION , KUB DONE WILL FOLLOW UP RESULT , ADVISED FAMILY NPO FOR NOW AND ORAL CARE DONE , WHEN PATIENT IS SLEEPING SHE IS MORE CALM WHEN SHE WAKES UP SHE BECOMES ANXIOUS AND EPISODES OF SHORTNESS OF BREATH , KEPT HOB ELEVATED AND ASPIRATION PRECAUTION
--- NOTE | 2019-01-04 19:45 | NUR ---
Pt was received in bed awake and non-verbal. Oxygen is on at 2L/min per NC and oxygen saturation is 97%. IVF of NS is infusing well in LAC at 40ml/hr without any signs of infiltration at the IV site. GT Feeding of Jevity 1.5 is infusing well at 60ml/hr. Bilateral soft wrist restraints are on and no circulatory impairment noted. Oakley cath to gravity drainage is draining clear yellowish urine. Fall, Contact/Reverse Isolation and safety precautions are in place.
[2019-01-04 20:00] VITALS: BP_SYST 119
--- NOTE | 2019-01-04 22:00 | NUR ---
Pt is sleeping, but easily arousable. No c/o pain or discomfort. GT Feeding and IVF are infusing well. Fall and safety precautions are in place.
--- NOTE | 2019-01-05 | NUR ---
No acute distress noted. IVF and GTF are infusing well.
[2019-01-05] MEDS: ALBUTEROL SULFATE 0.083% 2.5 MG/3 ML VIAL.NEB INH SCH ×4 (00:29→19:56)
[2019-01-05] MEDS: IPRATROPIUM BROM 0.5 MG/2.5 ML VIAL.NEB (ATROVENT) INH SCH ×4 (00:29→19:56)
[2019-01-05 00:31] VITALS: BP_SYST 100
--- NOTE | 2019-01-05 02:00 | NUR ---
No acute distress noted at this time. IVF and GTF are infusing well. Fall and safety precautions are in place.
--- NOTE | 2019-01-05 04:00 | NUR ---
Pt remains confused and disoriented. GTF and IVF are infusing well. No acute distress noted. Fall and safety precautions are in place.
[2019-01-05] MEDS: LEVOTHYROXINE SODIUM 0.05 MG TABLET PO SCH (06:01)
[2019-01-05] MEDS: AMIODARONE HCL 200 MG TABLET PO SCH ×3 (06:04→21:55)
--- NOTE | 2019-01-05 07:30 | NUR ---
RN INITIAL NOTES RECEIVED PATIENT IN BED AWAKE ABLE TO ANSWER WHEN NAME IS CALLED , GTUBE FEEDING IS OFF, HOB ELEVATED WITH IV TO LEFT AC INFUSING IVF ORDERED, PATIENT WITH THRASHER CTH INTACT, STILL NOTED WITH SHORTNESS OF BREATH INTIAL O2 SAT IS 94% ON 2/L MIN AND BREATHING TX CONT , STILL WITH ABDOMINAL DISTENTION , WHEEZING AND ANXIOUS , WILL CONT TO MONITOR AND AWITNG FOR THE KUB RESULT
[2019-01-05 08:00] VITALS: BP_SYST 122
[2019-01-05 08:20] LABS: MEAN CORPUSCULAR HEMOGLOBIN 35 pg (27-31); MEAN CORPUSCULAR HGB CONC 35 % (32-36); MEAN CORPUSCULAR VOLUME 98 fL (79.0-98.0); RED BLOOD CELL COUNT(AUTO) 2.02 MIL/uL (4.2-6.2); RED CELL DISTRIBUTION WIDTH 17.2 % (9.0-15.0); WHITE BLOOD COUNT (AUTO) 6.8 K/uL (4.8-10.8)
--- NOTE | 2019-01-05 08:30 | NUR ---
PHOTO MACHINE OPERATOR DR RICHARDSON HERE INFORMED AND DISCUSSED PATIENT STILL WITH EPISODES OF SHORTNESS OF BREATH , STILL WITH ABDOMINAL DISTENTION ,REPOSITIONED AND DR RICHARDSON IS AWARE OF THE CONDITION AND BREATHING NO FURTHER ORDER AT THIS TIME AND TO MAINTAIN NPO, PATIENT HGB IS 7 PER PARAMETER NO NEED TO CALL MD NO NEED TO GIVE PRBC UNLESS ITS BELOW 7 , HCT 19.8 AND PLATELET IS 36 .. WILL CONT TO MONITOR , PATIENT AT THIS TIME HAD HER AM MEDS AND TOLERATED ,LASIX GIVEN FOR SOB .
[2019-01-05 08:35] LABS: ALANINE AMINOTRANSFERASE 30 U/L (12-78); ALBUMIN 1.2 g/dL (3.4-4.8); ANION GAP 10 (5-15); ASPARTATE AMINOTRANSFERASE 39 U/L (10-37); CALCIUM 7.9 mg/dL (8.4-11.0); CHLORIDE 109 mmol/L (98-107); CREATININE 2.56 mg/dL (0.55-1.30); GLUCOSE 120 mg/dL (70-99); SODIUM SERUM 141 mmol/L (136-145); TOTAL BILIRUBIN 0.7 mg/dL (0.0-1.0); UREA NITROGEN, BLOOD 97 mg/dL (8-21)
[2019-01-05 08:56] LABS: HEMATOCRIT 19.8 % (36-48); PLATELET COUNT (AUTO) 36 K/uL (130-430)
[2019-01-05] MEDS: FUROSEMIDE 20 MG/2 ML VIAL IVP SCH ×3 (09:00→21:58)
[2019-01-05] MEDS: LOSARTAN POTASSIUM 50 MG TABLET (COZAAR) PO SCH ×2 (09:01→10:35)
[2019-01-05] MEDS: PANTOPRAZOLE SODIUM 40 MG/VIAL (PROTONIX) IVP SCH ×2 (09:01→10:35)
[2019-01-05] MEDS: METOPROLOL SUCCINATE 50 MG TAB.SR.24H (TOPROL XL) PO SCH ×2 (09:01→10:36)
[2019-01-05 09:21] LABS: ATYPICAL LYMPHOCYTES % 61 % (0-0); BAND % (MANUAL) 3 % (0-6); BASOPHILS % (MANUAL) 0 % (0-2); EOSINOPHILS % (MANUAL) 0 % (0-7); LYMPHOCYTES % (MANUAL) 25 % (20-46); MONOCYTES % (MANUAL) 7 % (0-11)
[2019-01-05] MEDS: POTASSIUM CHLORIDE 20 MEQ TAB.PRT.SR PO SCH (10:35)
[2019-01-05] MEDS: ALLOPURINOL 300 MG TABLET (ZYLOPRIM) PO SCH (10:36)
--- NOTE | 2019-01-05 11:26 | NUR ---
SOFTWARE INTEGRATION DEVELOPER REVIEWED LABS AND WITH HI BUN 97 WILL CALL SOFTWARE INTEGRATION DEVELOPER MT CALLED CALLING THE EXCHANGE
--- NOTE | 2019-01-05 11:27 | NUR ---
PAGED PAGED OLE JEAN AT [phone] SPOKE WITH EDDI.
[2019-01-05] MEDS ORDERED: NACL 0.9% 1,000 ML IV SCH ×2 (11:45→12:00)
--- NOTE | 2019-01-05 11:53 | NUR ---
HI BUN /ROLL GRINDER OPERATOR DR MARSH RETURNED CALL INFORMED BUN TRENDING HI READS PREVIOUS BUN AND CONDITION DISCUSSED WITH MD , WITH ORDR TO INCREASE THE IVF TO 75 AND INFORMED PATIENT STILL HAVING SHORTNESS OF BREATH AND HAD LASIX IV ALREADY THIS AM, DR MARSH SAID THAT FOR NOW INCREASE THE IVF THEN HE WILL COME AND SEE PATIENT LATER , IVF INCREASED TO 75 CC NOTED AND PATIENT MONITORED
[2019-01-05 12:00] VITALS: BP_SYST 106
--- NOTE | 2019-01-05 12:30 | NUR ---
ROUNDS PATIENT NOT IN DISTRESS , EATING HER LUNCH WITH FAIR AMOUNT NO COMPLAIN OF PAIN Addendum: 01/05/19 at 1347 by Molly Crow RN ERROR DOCUMENTATION NOTES IS FOR ANOTHER PATIENT
--- NOTE | 2019-01-05 13:49 | NUR ---
ROUNDS PATIENT INTERMITTENTLY AWAKE ABLE TO ACKNOWLEDGED MY PRESENCE NO FACIAL GRIMACE AND SHE STATED "AGUA".. REPOSITINED . HOB ELEVATED
[2019-01-05] MEDS ORDERED: LEVOFLOXACIN 250 MG/D5W 50 ML IV SCH (14:00)
[2019-01-05] MEDS: metroNIDAZOLE 500 mg/NS 100 ML IV SCH ×2 (14:24→21:56)
--- NOTE | 2019-01-05 15:05 | NUR ---
ATB ORDERED PATIENT SEEN AND ORDERED BY BURNER HAND WITH LEVJYOTI AND MELISSA IV WILL CONT MEDS AND MONITORING INFORMED FAMILY WERE WAITING FOR THE LEAK OPERATOR PARAFFIN PLANT
[2019-01-05 16:32] VITALS: BP_SYST 110
--- NOTE | 2019-01-05 16:55 | NUR ---
DR CARUSO PATIENT CONDITION REPORTED TO DR ZULY SONI SAID HE WILL REPEAT LABS IN AM
--- NOTE | 2019-01-05 17:02 | NUR ---
DR ROSEN ROUNDS PATIENT CONDITION DISCUSSED WITH DR ROSEN DISCUSSED WITH HIM PATIENT HR AND CONDITION MD STILL IN THE COMPUTER REVIEWING PATIENT CONDITION
--- NOTE | 2019-01-05 17:43 | NUR ---
ENDORSEMENT WILL ENDORSE TO NEXT SHIFT PATIENT WAS PLACED ON TELE MONITOR D/T HI HR WILL CONT CARE Addendum: 01/05/19 at 1849 by Molly Crow RN ADDITIONAL ENDORSEMENT PATIENT IS ON TELE MONITOR NOW FOR TACHYCARDIA PATIENT SEEN BY DR SILAS CARUSO WILL REPAET LABS IN [facility] AND HEMANT CONT O PRTOVIDE COMFORT MEASURES, WILL NOTIFY POLO CHAMPAGNE WHEN SHE CALLED BACK AFTER AND DISCUSS PCP AND CONSULT ORDERS POLO CHAMPAGNE IS AWARE THAT MOTHER STILL WITH EPISODES OF SHORTNESS OF BREATH AND WITH 2 IV ATB
[2019-01-05 19:50] VITALS: BP_SYST 112
--- NOTE | 2019-01-05 20:00 | NUR ---
INITIAL NOTE AT INITIAL ASSESSMENT, PATIENT IS RESTING IN BED, HER OXYGEN SATURATION IS 96% ON 2L NC. HER HR IS ELEVATED, DR. ROSEN IS AWARE. ALL OTHER VITALS STABLE. PATIENT IS REPOSITIONED FOR COMFORT. PLAN OF CARE FOR THE EVENING IS COMMUNICATED WITH THE PATIENT. PATIENT IS UNSUCCESSFUL IN DEMONSTRATING CORRECT USAGE OF CALL LIGHT AT THIS TIME DUE TO COGNITIVE IMPAIRMENT. WILL ROUND ON PATIENT FREQUENTLY. SHE IS AT A ROOM CLOSE TO NURSING STATION FOR CLOSE OBSERVATION FOR CLOSE MONITORING. BED IS LOCKED, ALARMED, AND AT THE LOWEST LEVEL. FALL, SAFETY, RESPIRATORY, ASPIRATORY, RESTRAINT, AND ISOLATION PRECAUTIONS WILL BE TAKEN THROUGHOUT THE SHIFT.
--- NOTE | 2019-01-05 21:30 | NUR ---
NEW IV PLACEMENT PATIENT'S IV IS NOTED TO BE INFILTRATED, NEW IV PLACED BY RN AMARA ON RIGHT FOREARM, #20 GAUGE. 10 MLS NS FLUSHED WITH NO RESISTANCE. OLD IV IS D/C, NO SIGNS OF ACTIVE BLEED NOTED.
--- NOTE | 2019-01-05 22:00 | NUR ---
NOTE RT KANNAN CALLED TO BEDSIDE AT THIS TIME FOR SHORTNESS OF BREATH NOTED FROM PATIENT. BIPAP PLACED ON PATIENT, VITAL SIGNS STABLE. SHE IS REPOSITIONED FOR COMFORT. BED IS LOCKED, ALARMED, AND AT THE LOWEST LEVEL.
--- NOTE | 2019-01-06 | NUR ---
NOTE PATIENT LOOKS MORE RELAXED AT THIS TIME. VITAL SIGNS ARE STABLE. SHE IS REPOSITIONED FOR COMFORT. BED IS LOCKED, ALARMED, AND AT THE LOWEST LEVEL. WILL CONTINUE TO MONITOR.
[2019-01-06 00:44] VITALS: BP_SYST 117
[2019-01-06] MEDS: IPRATROPIUM BROM 0.5 MG/2.5 ML VIAL.NEB (ATROVENT) INH SCH (00:59)
[2019-01-06] MEDS: ALBUTEROL SULFATE 0.083% 2.5 MG/3 ML VIAL.NEB INH SCH (00:59)
--- NOTE | 2019-01-06 01:42 | NUR ---
JANEY ASMSON CALLED / PATIENT EXPIRES AT 0125, PATIENT'S HR IS NOTED TO HAVE SUDDENLY CHANGED FROM 140s THROUGHOUT THE SHIFT TO 40s. RT KANNAN WAS AT BEDSIDE DURING THIS TIME. JANEY SAMSON CALLED AT 0127. DR. PERRY, CHARGE NURSE ELSIE, POLISHER APPRENTICE KATE ARE AT BEDSIDE. PATIENT HAS BEEN VERIFIED TO BE MODIFIED DNR (BIPAP ONLY). DR. PERRY CALLS TIME OF AT 0142. SEE CODE BLUE CHARTS.
--- NOTE | 2019-01-06 01:54 | NUR ---
MD'S NOTIFIED OF PT EXPIRING - SPOKE WITH SHAY ORDONEZ ; PAPER BOX MAKER- DR. MAXIMO UNGER; PAPER BOX MAKER - DR. JASSO
--- NOTE | 2019-01-06 01:55 | NUR ---
'S NOTIFIED OF PATIENT EXPIRING - SPOKE WITH PERLITA RAMIREZ
--- NOTE | 2019-01-06 02:18 | NUR ---
COMMUNICATION W/ CORONERS CORONERS CALLED; SLOT SHIFT SUPERVISOR JEISON HERNANDEZ VERIFIED THAT THIS PATIENT WILL NOT BE A CORONERS CASE.
--- NOTE | 2019-01-06 02:25 | NUR ---
ATTEMPT TO REACH FAMILY 5 ATTEMPTS HAVE BEEN MADE TO REACH PATIENT'S FAMILY SINCE THE TIME OF ; VOICEMAIL LEFT WITH CALL BACK NUMBER FOR KASH EID. WILL TRY AGAIN IN LATER IN THE MORNING.
--- NOTE | 2019-01-06 02:30 | NUR ---
COMMUNICATION WITH [facility] COMMUNICATION WITH [facility] AT THIS TIME TO REPORT OF PATIENT; PER [facility] HELENE ROUSSEAU, THEY WILL NOT CONTINUE TO FOLLOW THIS CASE. SHE PROVIDED A NOTIFICATION: [id number].
--- NOTE | 2019-01-06 02:32 | NUR ---
DR. ROSEN PAGED VIA PAGER ([phone]) TO INFORM HIM OF PATIENT EXPIRING.
--- NOTE | 2019-01-06 03:15 | NUR ---
POST MORTEM CARE POST MORTEM CARE PROVIDED PER PROTOCOL.
--- NOTE | 2019-01-06 05:45 | NUR ---
PATIENT TAKEN TO REFRIGERATOR PATIENT TAKEN AT THIS TIME BY SECURITY TO REFRIGERATOR PER PROTOCOL POST 4 HOURS OF .
--- NOTE | 2019-01-06 06:20 | NUR ---
COMMUNICATION WITH DR. SILAS ROSEN HAS PAGED BACK AT THIS TIME, HE IS MADE AWARE OF PATIENT'S . DR. ROSEN HAS VERIFIED HE WILL SIGN THE RECORD OF . CHARGE NURSE ELSIE MADE AWARE. ALL CARE ENDORSE TO CHARGE NURSE ELSIE.
--- NOTE | 2019-01-06 06:43 | NUR ---
COMMUNICATION WITH FAMILY LAVONNE CEE (PATIENT'S ELDEST DAUGHTER) HAS CALLED BACK AT THIS TIME, SHE WAS INFORMED ABOUT THE EXPIRATION OF HER MOTHER. SHE VERBALIZED THAT THEY HAVE PLANED FOR [facility]. PLAN COMMUNICATED TO CHARGE NURSE ZIMMERMAN. Addendum: 01/06/19 at 0807 by Burak Diaz RN LAVONNE CEE VERBALIZES SHE WOULD NOT LIKE TO SEE HER MOTHER BEFORE SHE IS PICKED UP BY [facility]. LAVONNE STATED SHE WOULD LIKE TO HOME SERVICE DIRECTOR PATIENT BELONGINGS AT [facility]; ENDORSED TO CHARGE NURSE GONG.
--- NOTE | 2019-01-06 15:35 | NUR ---
[facility] LATE ENTRY DUE TO PATIENT CARE 11:00 [facility]. PER JAIME FAMILY DID NOT SIGN RELEASE FORM YET. THAT THEY WILL FOLLOW UP. INFORMED JAIME THAT WE DO NOT HAVE A MORGUE AND THAT PATIENT IS IN A BODY HOLD RIGHT NOW. JAIME STATED SHE WILL SEND CYLINDER WORKER ONCE AUTHORIZATION IS SIGN. REQUESTED JAIME TO FAX ME A COPY OF THE RELEASE FORM 13;30 DAUGHTER HERE TO CYLINDER WORKER PATIENTS BELONGINGS [phone] CALLED [facility] TO FOLLOW UP. FLOR RANGEL WHO STATED THAT THEY STILL DONT HAVE THEAUTHORIZATION TO RELEASE SIGNED YET. JUAN CARLOS WILL CALL FAMILY. AGAIN, JUAN CARLOS WAS INFORMED THAT PATIENT IS IN A SINGLE BODY HOLD.
--- NOTE | 2019-01-06 19:02 | NUR ---
ALICE BODY RELEASED TO BREANNE FROM ALICE AT 1830
== END 2019-01-06 01:42 | disposition expired | DRG 870 ==
LOC: SED 07:51 → SIC 10:38 → STU 12-15 19:00 → SMU 12-19 17:38 → STU 01-05 17:21
PROVIDERS: ADMIT Family Medicine; ATTEND Family Medicine
PROC: 5A1955Z Respiratory Ventilation, Greater than 96 Consecutive Hours (ICD-10-PCS; 2018-12-07)
PROC: 0BH17EZ Insertion of Endotracheal Airway into Trachea, Via Natural or Artificial Opening (ICD-10-PCS; 2018-12-07)
PROC: 30233N1 Transfusion of Nonautologous Red Blood Cells into Peripheral Vein, Percutaneous Approach (ICD-10-PCS; 2018-12-07)
PROC: 05HY33Z Insertion of Infusion Device into Upper Vein, Percutaneous Approach (ICD-10-PCS; 2018-12-07)
PROC: B54NZZA Ultrasonography of Left Upper Extremity Veins, Guidance (ICD-10-PCS; 2018-12-07)
PROC: 30233R1 Transfusion of Nonautologous Platelets into Peripheral Vein, Percutaneous Approach (ICD-10-PCS; 2018-12-08)
PROC: 5A09357 Assistance with Respiratory Ventilation, Less than 24 Consecutive Hours, Continuous Positive Airway Pressure (ICD-10-PCS; 2018-12-13)
PROC: 5A1935Z Respiratory Ventilation, Less than 24 Consecutive Hours (ICD-10-PCS; 2018-12-13)
PROC: 5A09357 Assistance with Respiratory Ventilation, Less than 24 Consecutive Hours, Continuous Positive Airway Pressure (ICD-10-PCS; 2018-12-14)
PROC: 0DH63UZ Insertion of Feeding Device into Stomach, Percutaneous Approach (ICD-10-PCS; principal; 2018-12-20 11:30)
PROC: 5A09357 Assistance with Respiratory Ventilation, Less than 24 Consecutive Hours, Continuous Positive Airway Pressure (ICD-10-PCS; 2018-12-26)
DX: A41.9 Sepsis, unspecified organism (principal); E43 Unspecified severe protein-calorie malnutrition; G93.41 Metabolic encephalopathy; I50.23 Acute on chronic systolic (congestive) heart failure; J69.0 Pneumonitis due to inhalation of food and vomit; J96.00 Acute respiratory failure, unspecified whether with hypoxia or hypercapnia; N17.0 Acute kidney failure with tubular necrosis; D61.818 Other pancytopenia; I13.0 Hypertensive heart and chronic kidney disease with heart failure and stage 1 through stage 4 chronic kidney disease, or unspecified chronic kidney disease; I42.9 Cardiomyopathy, unspecified; C92.00 Acute myeloblastic leukemia, not having achieved remission; E03.9 Hypothyroidism, unspecified; E05.90 Thyrotoxicosis, unspecified without thyrotoxic crisis or storm; F02.80 Dementia in other diseases classified elsewhere, unspecified severity, without behavioral disturbance, psychotic disturbance, mood disturbance, and anxiety; F19.10 Other psychoactive substance abuse, uncomplicated; G30.9 Alzheimer's disease, unspecified; I27.20 Pulmonary hypertension, unspecified; I48.91 Unspecified atrial fibrillation; K25.9 Gastric ulcer, unspecified as acute or chronic, without hemorrhage or perforation; K29.70 Gastritis, unspecified, without bleeding; N18.9 Chronic kidney disease, unspecified; R13.10 Dysphagia, unspecified; R65.20 Severe sepsis without septic shock; M19.90 Unspecified osteoarthritis, unspecified site; Z51.5 Encounter for palliative care; Z88.5 Allergy status to narcotic agent; Z88.0 Allergy status to penicillin; Z22.322 Carrier or suspected carrier of Methicillin resistant Staphylococcus aureus; Z87.01 Personal history of pneumonia (recurrent); Z90.710 Acquired absence of both cervix and uterus; Z79.899 Other long term (current) drug therapy; Z68.24 Body mass index [BMI] 24.0-24.9, adult
CPT/HCPCS: 36415; 36600; 43246; 71045; 74018; 74230; 80048; 80053; 80061; 80202-TC; 81000-TC; 82150-TC; 82550-TC; 82803-TC; 82962; 83605; 83735-TC; 83880; 84100-TC; 84439; 84443-TC; 84484; 84550-TC; 85007; 85025; 85027; 85610-TC; 85730-TC; 86480; 86738; 86886; 86900; 86901; 86920; 86945-TC; 87040-TC; 87070-TC; 87081; 87086; 87205-TC; 87449; 92610-GN; 92611-GN; 93005; 93306; 94002; 94003; 94640; 94660; 94760; 96361; 96365; 99291; C1751; C9113; G0378; J0330; J0360; J1450; J1940; J1956; J2060; J2175; J2185; J2250; J3370; J3480; J3490; J7030; J7040; J7042; J7050; J7060; J7613; J7620; P9021; P9034